=== PATIENT | female | born 1960 | race Caucasian/White ===

== ENCOUNTER → 2017-06-29 10:52 | Outpatient (CLI) | payer OTHER, SELFPAY ==
[2017-06-29 11:59] LABS: Absolute Lymphocyte Count 1.38 X10^3/ul (0.83-4.51); Absolute Neutrophil Count 5.2 X10^3/uL (2.0-7.7); Basophil# 0.03 X10^3/uL; Basophil% 0.4 % (0-1); Eosinophil# 0.14 X10^3/uL; Eosinophils% 1.9 % (0-5); Hematocrit 41.6 % (37-47); Lymphocyte # 1.38 X10^3/ul (4.0); Mean Corp Hgb Conc 31.3 g/gl (32-36); Mean Corpuscular Hgb 27.1 pg (27.0-32.0); Mean Corpuscular Volume 86.7 fL (81-99); Mean Platelet Vol. 9.9 fl (6.2-12.0); Monocyte# 0.54 X10^3/uL; Monocyte% 7.4 % (0-10); Neutrophil # 5.18 X10^3/uL (2.7-7.7); Neutrophil % 71.2 % (47-70); Platelet Count 272 K/mm3 (150-450); RBC Distribution Width CV 13.6 % (11.6-14.6); RBC Distribution Width SD 42.1 fl (35.1-43.9); White Blood Count 7.3 K/mm3 (4.4-11.0)
[2017-06-29 12:03] LABS: POSITIVE COUNT NO; POSITIVE DIFFERENTIAL NO; POSITIVE MORPHOLOGY NO
[2017-06-29 12:36] LABS: ALB/GLOB Ratio 0.9 RATIO (0.9-2.4); AST(SGOT) 19 U/L (15-37); Alanine Aminotransfer ALT/SGPT 25 U/L (13-56); Albumin, Serum 3.8 g/dL (3.2-5.0); Alkaline Phosphatase 101 U/L (45-117); Anion Gap 7 (5-15); BUN 17 mg/dL (7-18); BUN/Creat Ratio 17.8 RATIO (10-20); Chloride 107 mmol/L (98-107); Creatinine, Serum 0.96 mg/dL (0.55-1.02); EST Glomerular Filtration Rate 64 mL/min (>60); Est Glom Filt Rate - Afr Amer 78 mL/min (>60); Globulin 4.4 g/dL (2.2-4.2); Glucose 86 mg/dL (70-110); Potassium 4.2 mmol/L (3.5-5.1); Protein, Total 8.2 g/dL (6.4-8.2); Sodium Level 140 mmol/L (136-145)
== END ==
PROVIDERS: Family Provider Nurse Practitioner Primary Care; PCP Nurse Practitioner Primary Care; Visit Provider Internal Medicine Rheumatology
DX: M06.4 Inflammatory polyarthropathy (principal); E03.9 Hypothyroidism, unspecified; E21.3 Hyperparathyroidism, unspecified; Z98.84 Bariatric surgery status
CPT/HCPCS: 36415; 80053; 85025

== ENCOUNTER → 2017-12-21 10:19 | Outpatient (CLI) | payer OTHER, SELFPAY ==
[2017-12-21 12:02] LABS: Absolute Lymphocyte Count 1.49 X10^3/ul (0.83-4.51); Absolute Neutrophil Count 4.6 X10^3/uL (2.0-7.7); Basophil# 0.03 X10^3/uL; Basophil% 0.4 % (0-1); Eosinophil# 0.22 X10^3/uL; Eosinophils% 3.2 % (0-5); Hematocrit 40.6 % (37-47); Hemoglobin 12.6 g/dl (12.0-15.0); Lymphocyte # 1.49 X10^3/ul (4.0); Lymphocyte % 21.6 % (19-41); Mean Corpuscular Volume 87.1 fL (81-99); Mean Platelet Vol. 9.9 fl (6.2-12.0); Monocyte# 0.57 X10^3/uL; Monocyte% 8.3 % (0-10); Neutrophil # 4.58 X10^3/uL (2.7-7.7); Neutrophil % 66.4 % (47-70); Platelet Count 262 K/mm3 (150-450); RBC Distribution Width CV 13.2 % (11.6-14.6); RBC Distribution Width SD 41.1 fl (35.1-43.9); Red Blood Count 4.66 M/mm3 (4.2-5.4); White Blood Count 6.9 K/mm3 (4.4-11.0)
[2017-12-21 12:08] LABS: POSITIVE COUNT NO; POSITIVE DIFFERENTIAL NO; POSITIVE MORPHOLOGY NO
[2017-12-21 12:24] LABS: ALB/GLOB Ratio 0.9 RATIO (0.9-2.4); AST(SGOT) 18 U/L (15-37); Alanine Aminotransfer ALT/SGPT 24 U/L (13-56); Albumin, Serum 3.5 g/dL (3.2-5.0); Alkaline Phosphatase 102 U/L (45-117); Anion Gap 10 (5-15); BUN 12 mg/dL (7-18); Calcium,Total 8.8 mg/dL (8.5-10.1); Chloride 109 mmol/L (98-107); EST Glomerular Filtration Rate 61 mL/min (>60); Est Glom Filt Rate - Afr Amer 74 mL/min (>60); Globulin 4.1 g/dL (2.2-4.2); Glucose 84 mg/dL (74-106); Protein, Total 7.6 g/dL (6.4-8.2); Sodium Level 143 mmol/L (136-145)
== END ==
PROVIDERS: Family Provider Nurse Practitioner Primary Care; PCP Nurse Practitioner Primary Care; Visit Provider Internal Medicine Rheumatology
DX: M06.4 Inflammatory polyarthropathy (principal); M17.0 Bilateral primary osteoarthritis of knee; E03.9 Hypothyroidism, unspecified; E21.3 Hyperparathyroidism, unspecified; Z98.84 Bariatric surgery status
CPT/HCPCS: 36415; 80053; 85025

== ENCOUNTER → 2018-01-21 10:05 | Outpatient (CLI) | payer OTHER, SELFPAY ==
[2018-01-21 12:26] LABS: ALB/GLOB Ratio 0.8 RATIO (0.9-2.4); AST(SGOT) 19 U/L (15-37); Alanine Aminotransfer ALT/SGPT 22 U/L (13-56); Albumin, Serum 3.4 g/dL (3.2-5.0); Alkaline Phosphatase 101 U/L (45-117); Anion Gap 10 (5-15); BUN 15 mg/dL (7-18); BUN/Creat Ratio 15.9 RATIO (10-20); Calcium,Total 8.4 mg/dL (8.5-10.1); Chloride 108 mmol/L (98-107); Creatinine, Serum 0.94 mg/dL (0.55-1.02); EST Glomerular Filtration Rate 65 mL/min (>60); Est Glom Filt Rate - Afr Amer 79 mL/min (>60); Glucose 80 mg/dL (74-106); Protein, Total 7.4 g/dL (6.4-8.2); Sodium Level 141 mmol/L (136-145); T4 Free Direct 1.05 ng/dL (0.76-1.46); Thyroid Stim Hormone (TSH) 3.54 uIU/mL (0.358-3.74)
[2018-01-22 09:05] LABS: Free T3 2.6 pg/mL (2.18-3.98)
[2018-01-22 09:11] LABS: PTHIN 119.8 pg/mL (18.4-80.1)
[2018-01-26 10:10] LABS: Vitamin D 1,25-Dihydroxy 69.7 pg/mL (19.9-79.3)
== END ==
PROVIDERS: Family Provider Nurse Practitioner Primary Care; PCP Nurse Practitioner Primary Care; Visit Provider Internal Medicine Endocrinology, Diabetes & Metabolism
DX: N25.81 Secondary hyperparathyroidism of renal origin (principal); E55.9 Vitamin D deficiency, unspecified; E03.9 Hypothyroidism, unspecified
CPT/HCPCS: 36415; 80053; 82306; 82330; 82652; 83970; 84439; 84443; 84480; 84481

== ENCOUNTER → 2018-06-18 11:32 | Outpatient (CLI) | payer OTHER, SELFPAY ==
[2018-06-18 13:14] LABS: Absolute Lymphocyte Count 1.33 X10^3/ul (0.83-4.51); Absolute Neutrophil Count 4.3 X10^3/uL (2.0-7.7); Basophil# 0.03 X10^3/uL; Basophil% 0.5 % (0-1); Eosinophil# 0.12 X10^3/uL; Eosinophils% 1.9 % (0-5); Hematocrit 41.6 % (37-47); Hemoglobin 12.5 g/dl (12.0-15.0); Lymphocyte # 1.33 X10^3/ul (4.0); Lymphocyte % 21.1 % (19-41); Mean Corpuscular Hgb 26.4 pg (27.0-32.0); Mean Corpuscular Volume 87.9 fL (81-99); Mean Platelet Vol. 9.7 fl (6.2-12.0); Monocyte# 0.47 X10^3/uL; Monocyte% 7.5 % (0-10); Neutrophil # 4.34 X10^3/uL (2.7-7.7); POSITIVE COUNT NO; POSITIVE DIFFERENTIAL NO; POSITIVE MORPHOLOGY NO; Platelet Count 238 K/mm3 (150-450); RBC Distribution Width CV 13.5 % (11.6-14.6); RBC Distribution Width SD 43.9 fl (35.1-43.9); Red Blood Count 4.73 M/mm3 (4.2-5.4); White Blood Count 6.3 K/mm3 (4.4-11.0)
[2018-06-18 13:26] LABS: ALB/GLOB Ratio 0.9 RATIO (0.9-2.4); AST(SGOT) 21 U/L (15-37); Alanine Aminotransfer ALT/SGPT 27 U/L (13-56); Albumin, Serum 3.7 g/dL (3.2-5.0); Alkaline Phosphatase 105 U/L (45-117); Anion Gap 7 (5-15); BUN 12 mg/dL (7-18); BUN/Creat Ratio 13.1 RATIO (10-20); Calcium,Total 8.8 mg/dL (8.5-10.1); Chloride 106 mmol/L (98-107); Creatinine, Serum 0.92 mg/dL (0.55-1.02); EST Glomerular Filtration Rate 67 mL/min (>60); Est Glom Filt Rate - Afr Amer 81 mL/min (>60); Globulin 3.9 g/dL (2.2-4.2); Glucose 84 mg/dL (74-106); Potassium 4.2 mmol/L (3.5-5.1); Protein, Total 7.6 g/dL (6.4-8.2); Sodium Level 142 mmol/L (136-145)
--- OUTSIDE RECORDS SUMMARY | 2018-08-22 23:18 | XMS RPT_ITS ---
:1960 Author Organization [facility] Care Team Providers Name Role Phone GUNNARANSLEYMARY Attending Unavailable HEENA MIJARES, MS. SABI Milner Primary Care Unavailable ESTEFANY ELI MD Attending Unavailable HEENA MIJARES, MS. SABI Milner Primary Care Unavailable ESTEFANY ELI MD Attending Unavailable HEENA MIJARES, MS. SABI Milner Primary Care Unavailable Nanette Farley Attending Unavailable Nanette Farley Referring Unavailable Sabi Osei [employer] SUPERVISOR-C Primary Care Unavailable Nanette Falrey Attending Unavailable Nanette Farley Referring Unavailable Sabi Osei [employer] SUPERVISOR-C Primary Care Unavailable Nanette Farley Attending Unavailable Nanette Farley Referring Unavailable Sabi Osei [employer] SUPERVISOR-C Primary Care Unavailable Estefany Eli Attending Unavailable Estefany Eli Referring Unavailable Sabi Osei [employer] SUPERVISOR-C Primary Care Unavailable PROBLEMS PROBLEMS DATE TYPE CONDITION / CODE ATTENDING STATUS SOURCE Unknown 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 / Community M06.4(ICD-10) Hospital Repository Unknown 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 / M17.0(ICD-10) Hospital Repository Unknown E03.9 - Hypothyroidism, Nanette Farley Active [facility] unspecified / Community E03.9(ICD-10) Hospital Repository Unknown 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 [facility] Hyperparathyroidism, [facility] unspecified / Hospital E21.3(ICD-10) Repository Unknown Z98.84 - Bariatric Nanette Farley Active [facility] 9 surgery status / Community Z98.84(ICD-10) Hospital Repository Unknown N20.0 - Calculus of Nanette Farley Active [facility] 9 kidney / N20.0(ICD-10) [facility] Hospital Repository Admitting Secondary ELÍAS MENA, Active [place] [address] Diagnosis hyperparathyroidism of [facility] renal origin / Repository N25.81(ICD-10) PROCEDURES PROCEDURES No Procedure Records FoundRESULTS RESULTS CBC W/DIFF, AUTOMATED Collected: 06/18/2018 Status: F Source: [facility] 11:41 AM [facility] REPOSITORY TYPE CODE TESTS RESULT OUT OF RANGE REFERENCE UNITS LAB L100.1000 4.4-11.0 K/mm3 Normal WBC 6.3 LAB L100.1200 4.2-5.4 M/mm3 Normal RBC 4.73 LAB L100.1300 12.0-15.0 g/dl Normal HGB 12.5 LAB L100.1400 37-47 % Normal HCT 41.6 LAB L100.1500 81-99 fL Normal MCV 87.9 LAB L100.1600 27.0-32.0 pg Low MCH 26.4 LAB L100.1700 32-36 g/gl Low MCHC 30.0 LAB L100.1810 11.6-14.6 % Normal RDW CV 13.5 LAB L100.1820 35.1-43.9 fl Normal RDW SD 43.9 LAB L100.1900 150-450 K/mm3 Normal PLT 238 LAB L100.2000 6.2-12.0 fl Normal MPV 9.7 LAB L100.2100 47-70 % Normal NEUT% 69.0 LAB L100.2200 19-41 % Normal LY% 21.1 LAB L100.2300 0-10 % Normal MONO% 7.5 LAB L100.2400 0-5 % Normal EO% 1.9 LAB L100.2500 0-1 % Normal BASO% 0.5 LAB L100.2550 0.0-0.9 % Normal IM GRAN % 0.000 Result Comment: IG% - Immature Granulocytes (promyelocytes, myelocytes and metamyelocytes) > 1% indicates that a LEFT SHIFT is Present. LAB L100.2620 2.0-7.7 X10 3/uL Normal Absolute Neut 4.3 LAB L100.2720 0.83-4.51 X10 3/ul Normal Absolute Lymph 1.33 Performed By: #### L100.0100 #### [facility] [address] [place], [address] COMPREHENSIVE METABOLIC Collected: 06/18/2018 Status: F Source: [facility] 11:41 AM [facility] REPOSITORY TYPE CODE TESTS RESULT OUT OF RANGE REFERENCE UNITS LAB L501.0100 74-106 mg/dL Normal GLU 84 Result Comment: Please note revised GLUCOSE reference range effective 2017. LAB L501.1000 7-18 mg/dL Normal BUN 12 LAB L501.1100 0.55-1.02 mg/dL Normal CREAT,SERUM 0.92 Result Comment: The validity of the calculated GFR AND GFRAA in patients over 70 years has not been determined. Clinical correlation is essential. LAB L501.1110 >60 mL/min Normal EST GFR 67 Result Comment: Non- GFR Calc LAB L501.1115 >60 mL/min Normal EST GFR - AA 81 Result Comment: GFR Calc LAB L501.1300 10-20 RATIO Normal BUN/CRE 13.1 LAB L501.1500 6.4-8.2 g/dL T Normal PROT 7.6 LAB L501.1800 3.2-5.0 g/dL Normal ALB 3.7 LAB L501.1950 2.2-4.2 g/dL Normal GLOB 3.9 LAB L501.2000 0.9-2.4 RATIO Normal A/G 0.9 LAB L501.2200 8.5-10.1 mg/dL CA Normal 8.8 LAB L501.4100 15-37 U/L Normal AST 21 LAB L501.4305 45-117 U/L Normal ALK P 105 LAB L501.4405 13-56 U/L Normal ALT 27 LAB L501.4600 0.20-1.00 mg/dL T Normal BILI 0.50 LAB L501.5300 136-145 mmol/L NA Normal 142 LAB L501.5600 3.5-5.1 mmol/L K Normal 4.2 LAB L501.5900 98-107 mmol/L CL Normal 106 LAB L501.6100 21.0-32.0 mmol/L Normal CO2 29.0 LAB L501.6200 5-15 Normal GAP 7 Performed By: #### L500.4050 #### [facility] [address] [place], [place], [address] VITAMIN D 1,25-DIHYDROXY Collected: 01/22/2018 Status: F Source: [facility] 10:08 AM [facility] REPOSITORY TYPE CODE TESTS RESULT OUT OF RANGE REFERENCE UNITS LAB L3300.0960 19.9-79.3 pg/mL Normal VITD 1,25 69.7 [address] Result Comment: Performed at: - [facility] [id number] Program Checker: Eugene Domingo MD, Phone: [phone] Performed By: #### L3300.0960 #### [facility] (refer to report for specific site) refer to report for address and phone number COMPREHENSIVE METABOLIC Collected: 01/21/2018 Status: F Source: [facility] 10:08 AM [facility] REPOSITORY TYPE CODE TESTS RESULT OUT OF RANGE REFERENCE UNITS LAB L501.0100 74-106 mg/dL Normal GLU 80 Result Comment: Please note revised GLUCOSE reference range effective 2017. LAB L501.1000 7-18 mg/dL Normal BUN 15 LAB L501.1100 0.55-1.02 mg/dL Normal CREAT,SERUM 0.94 Result Comment: The validity of the calculated GFR AND GFRAA in patients over 70 years has not been determined. Clinical correlation is essential. LAB L501.1110 >60 mL/min Normal EST GFR 65 Result Comment: Non- GFR Calc LAB L501.1115 >60 mL/min Normal EST GFR - AA 79 Result Comment: GFR Calc LAB L501.1300 10-20 RATIO Normal BUN/CRE 15.9 LAB L501.1500 6.4-8.2 g/dL T Normal PROT 7.4 LAB L501.1800 3.2-5.0 g/dL Normal ALB 3.4 LAB L501.1950 2.2-4.2 g/dL Normal GLOB 4.0 LAB L501.2000 0.9-2.4 RATIO Low A/G 0.8 LAB L501.2200 8.5-10.1 mg/dL Low CA 8.4 LAB L501.4100 15-37 U/L Normal AST 19 LAB L501.4305 45-117 U/L Normal ALK P 101 LAB L501.4405 13-56 U/L Normal ALT 22 LAB L501.4600 0.20-1.00 mg/dL T Normal BILI 0.30 LAB L501.5300 136-145 mmol/L NA Normal 141 LAB L501.5600 3.5-5.1 mmol/L K Normal 4.0 LAB L501.5900 98-107 mmol/L High CL 108 LAB L501.6100 21.0-32.0 mmol/L Normal CO2 23.0 LAB L501.6200 5-15 Normal GAP 10 Performed By: #### L500.4050, L501.9520, L506.0400, L501.92311 #### [facility] [address] [place], [address] THYROID STIM HORMONE Collected: 01/21/2018 Status: F Source: [facility] (TSH) 10:08 AM [facility] REPOSITORY TYPE CODE TESTS RESULT OUT OF RANGE REFERENCE UNITS LAB L501.9520 0.358-3.74 uIU/mL Normal TSH 3.54 Performed By: #### L500.4050, L501.9520, L506.0400, L501.50719 #### [facility] [address] [place], [address] T4 FREE DIRECT Collected: 01/21/2018 Status: F Source: [facility] 10:08 AM [facility] REPOSITORY TYPE CODE TESTS RESULT OUT OF RANGE REFERENCE UNITS LAB L506.0400 0.76-1.46 ng/dL Normal T4 FREE 1.05 DIRECT Performed By: #### L500.4050, L501.9520, L506.0400, L501.91402 #### [facility] [address] [facility] [place], [address] FREE T3 Collected: 01/21/2018 Status: F Source: [facility] 10:08 AM [facility] REPOSITORY TYPE CODE TESTS RESULT OUT OF RANGE REFERENCE UNITS LAB L501.95131 2.18-3.98 pg/mL Normal FREE T3 2.6 Performed By: #### L500.4050, L501.9520, L506.0400, L501.73428 #### [facility] [address] [facility] [place], [address] PTHIN Collected: 01/21/2018 Status: F Source: [facility] 10:08 AM [facility] REPOSITORY TYPE CODE TESTS RESULT OUT OF RANGE REFERENCE UNITS LAB L509.1000 18.4-80.1 pg/mL High PTHIN 119.8 Performed By: #### L509.1000 #### [facility] [address] [facility] [place], [address] CALCIUM IONIZED Collected: 01/21/2018 Status: F Source: [facility] 10:08 AM [facility] REPOSITORY TYPE CODE TESTS RESULT OUT OF RANGE REFERENCE UNITS LAB L3100.9600 4.5-5.6 mg/dL Normal IONIZED CA 4.9 Result Comment: Performed at: [address] [id number] Program Checker: Edin Gomez PhD, Phone: [phone] Performed By: #### L3100.9600 #### [facility] (refer to report for specific site) refer to report for address and phone number CBC W/DIFF, AUTOMATED Collected: 12/21/2017 Status: F Source: [facility] 10:22 AM [facility] REPOSITORY TYPE CODE TESTS RESULT OUT OF RANGE REFERENCE UNITS LAB L100.1000 4.4-11.0 K/mm3 Normal WBC 6.9 LAB L100.1200 4.2-5.4 M/mm3 Normal RBC 4.66 LAB L100.1300 12.0-15.0 g/dl Normal HGB 12.6 LAB L100.1400 37-47 % Normal HCT 40.6 LAB L100.1500 81-99 fL Normal MCV 87.1 LAB L100.1600 27.0-32.0 pg Normal MCH 27.0 LAB L100.1700 32-36 g/gl Low MCHC 31.0 LAB L100.1810 11.6-14.6 % Normal RDW CV 13.2 LAB L100.1820 35.1-43.9 fl Normal RDW SD 41.1 LAB L100.1900 150-450 K/mm3 Normal PLT 262 LAB L100.2000 6.2-12.0 fl Normal MPV 9.9 LAB L100.2100 47-70 % Normal NEUT% 66.4 LAB L100.2200 19-41 % Normal LY% 21.6 LAB L100.2300 0-10 % Normal MONO% 8.3 LAB L100.2400 0-5 % Normal EO% 3.2 LAB L100.2500 0-1 % Normal BASO% 0.4 LAB L100.2550 0.0-0.9 % Normal IM GRAN % 0.100 Result Comment: IG% - Immature Granulocytes (promyelocytes, myelocytes and metamyelocytes) > 1% indicates that a LEFT SHIFT is Present. LAB L100.2620 2.0-7.7 X10 3/uL Normal Absolute Neut 4.6 LAB L100.2720 0.83-4.51 X10 3/ul Normal Absolute Lymph 1.49 Performed By: #### L100.0100 #### [facility] [address] [place], [place], [id number] COMPREHENSIVE METABOLIC Collected: 12/21/2017 Status: F [facility] AM [facility] REPOSITORY TYPE CODE TESTS RESULT OUT OF RANGE REFERENCE UNITS LAB L501.0100 74-106 mg/dL Normal GLU 84 Result Comment: Please note revised GLUCOSE reference range effective 2017. LAB L501.1000 7-18 mg/dL Normal BUN 12 LAB L501.1100 0.55-1.02 mg/dL Normal CREAT,SERUM 1.00 Result Comment: The validity of the calculated GFR AND GFRAA in patients over 70 years has not been determined. Clinical correlation is essential. LAB L501.1110 >60 mL/min Normal EST GFR 61 Result Comment: Non- GFR Calc LAB L501.1115 >60 mL/min Normal EST GFR - AA 74 Result Comment: GFR Calc LAB L501.1300 10-20 RATIO Normal BUN/CRE 12.0 LAB L501.1500 6.4-8.2 g/dL T Normal PROT 7.6 LAB L501.1800 3.2-5.0 g/dL Normal ALB 3.5 LAB L501.1950 2.2-4.2 g/dL Normal GLOB 4.1 LAB L501.2000 0.9-2.4 RATIO Normal A/G 0.9 LAB L501.2200 8.5-10.1 mg/dL CA Normal 8.8 LAB L501.4100 15-37 U/L Normal AST 18 LAB L501.4305 45-117 U/L Normal ALK P 102 LAB L501.4405 13-56 U/L Normal ALT 24 LAB L501.4600 0.20-1.00 mg/dL T Normal BILI 0.30 LAB L501.5300 136-145 mmol/L NA Normal 143 LAB L501.5600 3.5-5.1 mmol/L K Normal 4.0 LAB L501.5900 98-107 mmol/L High CL 109 LAB L501.6100 21.0-32.0 mmol/L Normal CO2 24.0 LAB L501.6200 5-15 Normal GAP 10 Performed By: #### L500.4050 #### [facility] [address] [place], [address] 24CRU Collected: 08/10/2017 Status: F Source: [facility] 8:23 AM [facility] REPOSITORY Order Comment: TV-1400ml TYPE CODE TESTS RESULT OUT OF REFERENCE UNITS RANGE LAB VOL24(LOIN mL/24hr C) U24 Total Volume 1400 LAB CRU(LOINC) 28.0-217.0 mg/dL Ur Creat 90.9 LAB CR24(LOINC 0.7-1.6 g/24hr ) U24 Creatinine 1.3 Performed By: #### 24CRU #### [address] [address] CAU24 Collected: 08/10/2017 Status: F Source: [facility] 8:23 AM [facility] REPOSITORY TYPE CODE TESTS RESULT OUT OF REFERENCE UNITS RANGE LAB CAUR(LOINC) mg/dL Ur Calcium <5.0 LAB CA24(LOINC) 100-300 mg/24hr U24 Calcium see comment Result Comment: Unable to calculate this test result accurately. Results used to calculate this test are outside the reportable range. Performed By: #### CAU24 #### [place] [address] #### TVOLCRE #### [address] [address] .TV CREATININE Collected: 08/10/2017 Status: F Source: [facility] 8:23 AM [facility] REPOSITORY TYPE CODE TESTS RESULT OUT OF REFERENCE UNITS RANGE LAB ALEXI(LOINC hour ) Collection 24 Period LAB VOL24(LOIN mL/24hr C) U24 Total Volume 1400 LAB CRU(LOINC) 28.0-217.0 mg/dL Ur Creat 90.9 LAB CR24(LOINC 0.7-1.6 g/24hr ) U24 Creatinine 1.3 Performed By: #### CAU24 #### [place] [address] #### TVOLCRE #### [address] [address] CAION Collected: 08/07/2017 Status: F Source: [facility] 9:17 AM [facility] REPOSITORY TYPE CODE TESTS RESULT OUT OF REFERENCE UNITS RANGE LAB CAION(LOINC 1.12-1.32 mmol/L ) Calcium 1.16 Ionized Performed By: #### CAION, TSH, FT4, FT3, PHOS, CMP, GFR, 125VTD #### [address] [address] #### PTH, VIDH #### [address] [address] TSH Collected: 08/07/2017 Status: F Source: [facility] 9:17 AM [facility] REPOSITORY TYPE CODE TESTS RESULT OUT OF RANGE REFERENCE UNITS LAB TSH(LOINC) 0.27-4.20 mcIU/mL TSH 2.34 Performed By: #### CAION, TSH, FT4, FT3, PHOS, CMP, GFR, 125VTD #### [address] [address] #### PTH, VIDH #### [place] [address] FT4 Collected: 08/07/2017 Status: F Source: [facility] 9:17 AM [facility] REPOSITORY TYPE CODE TESTS RESULT OUT OF RANGE REFERENCE UNITS LAB FT4(LOINC) 0.6-1.7 ng/mL Free T4 1.3 Performed By: #### CAION, TSH, FT4, FT3, PHOS, CMP, GFR, 125VTD #### [address] [address] #### PTH, VIDH #### [place] [address] FT3 Collected: 08/07/2017 Status: F Source: [facility] 9:17 AM [facility] REPOSITORY TYPE CODE TESTS RESULT OUT OF RANGE REFERENCE UNITS LAB FT3(LOINC) 2.3-4.0 pg/mL Free T3 3.2 Performed By: #### CAION, TSH, FT4, FT3, PHOS, CMP, GFR, 125VTD #### [address] [address] #### PTH, VIDH #### [place] [address] PHOS Collected: 08/07/2017 Status: F Source: [facility] 9:17 AM [facility] REPOSITORY TYPE CODE TESTS RESULT OUT OF REFERENCE UNITS RANGE LAB PHOS(LOINC 2.7-4.5 mg/dL ) Phosphorus 4.0 Performed By: #### CAION, TSH, FT4, FT3, PHOS, CMP, GFR, 125VTD #### [address] [address] #### PTH, VIDH #### [facility] [address] [place] [address] CMP Collected: 08/07/2017 Status: F Source: [facility] 9:17 AM [facility]POSIT[facility] TYPE CODE TESTS RESULT OUT OF REFERENCE UNITS RANGE LAB 1547-9 70-105 mg/dL GLUCOSE 87 LAB NA(LOINC) 136-146 mEq/L Sodium Level 141 LAB K(LOINC) 3.5-5.1 mEq/L Potassium Level 4.1 LAB CL(LOINC) 98-107 mEq/L Chloride 105 LAB CO2(LOINC) 22-29 mEq/L CO2 28 LAB EBAL(LOINC mEq/L ) Electrolyte Balance 8.0 LAB BUN(LOINC) 7.0-18.0 mg/dL BUN 14.1 LAB CRE(LOINC) 0.6-1.2 mg/dL Creatinine Lvl (s) 0.9 LAB BC(LOINC) 7-27 ratio BUN/Creatinine 16 Ratio LAB CA(LOINC) 8.4-10.2 mg/dL Calcium Lvl 8.7 LAB PROT(LOINC 6.0-8.3 G/dL ) Total Protein 6.6 LAB ALB(LOINC) 3.5-5.0 G/dL Albumin Level 4.1 LAB GLB(LOINC) G/dL Globulin 2.5 LAB AG(LOINC) 1.1-2.5 ratio A/G Ratio 1.6 LAB BILT(LOINC 0.2-1.0 mg/dL ) Bili Total 0.3 LAB AP(LOINC) 40-135 IU/L Alk Phos 96 LAB AST(LOINC) 10-40 IU/L AST/SGOT 16 LAB ALT(LOINC) 10-35 IU/L ALT/SGPT 14 Performed By: #### CAION, TSH, FT4, FT3, PHOS, CMP, GFR, 125VTD #### [place] [id number] [place], [place] [address] #### PTH, VIDH #### [address] [address] .GFR Collected: 08/07/2017 Status: F Source: [facility] 9:17 AM [facility] REPOSITORY TYPE CODE TESTS RESULT OUT OF REFERENCE UNITS RANGE LAB GFRAA(LOINC ml/min/1.73 ) sqm GFR 78 Greek Result Comment: GFR Population mean for , Non- Americans Ages 20-29 = 116 mL/min/1.73 sq.m. Ages 30-39 = 107 mL/min/1.73 sq.m. Ages 40-49 = 99 mL/min/1.73 sq.m. Ages 50-59 = 93 mL/min/1.73 sq.m. Ages 60-69 = 85 mL/min/1.73 sq.m. Ages 70+ = 75 mL/min/1.73 sq.m. Chronic Kidney Disease: Less than 60 mL/min/1.73 square meters End Stage Renal Disease: Less than 15 mL/min/1.73 square meters LAB GFRNO(LOINC) ml/min/1.73sqm GFR Non- >60 Result Comment: GFR Population mean for , Non- Americans Ages 20-29 = 116 mL/min/1.73 sq.m. Ages 30-39 = 107 mL/min/1.73 sq.m. Ages 40-49 = 99 mL/min/1.73 sq.m. Ages 50-59 = 93 mL/min/1.73 sq.m. Ages 60-69 = 85 mL/min/1.73 sq.m. Ages 70+ = 75 mL/min/1.73 sq.m. Chronic Kidney Disease: Less than 60 mL/min/1.73 square meters End Stage Renal Disease: Less than 15 mL/min/1.73 square meters Performed By: #### CAION, TSH, FT4, FT3, PHOS, CMP, GFR, 125VTD #### Lucy [address] [address] #### PTH, VIDH #### [address] [address] PTH Collected: 08/07/2017 Status: F Source: [facility] 9:17 AM [facility] REPOSITORY TYPE CODE TESTS RESULT OUT OF REFERENCE UNITS RANGE LAB PTH(LOINC) 18.5-88.0 pg/mL High PTH, Intact 127.7 Performed By: #### CAION, TSH, FT4, FT3, PHOS, CMP, GFR, 125VTD #### [address] [address] #### PTH, VIDH #### [address] [address] VIDH Collected: 08/07/2017 Status: F Source: [facility] 9:17 [facility] REPOSITORY TYPE CODE TESTS RESULT OUT OF RANGE REFERENCE UNITS LAB VIDH(LOINC) ng/mL Vit. D 52 25-Hydroxy Result Comment: Interpretive Values Based on Total 25(OH)D: Severe Deficiency <20 ng/mL Mild to Moderate Deficiency 20-30 ng/mL Optimum Levels 30-100 ng/mL Toxicity Possible >100 ng/mL Performed By: #### CAION, TSH, FT4, FT3, PHOS, CMP, GFR, 125VTD #### [address] [address] #### PTH, VIDH #### [address] [address] VIDDH Collected: 08/07/2017 Status: F Source: [facility] 9:17 [facility] REPOSITORY TYPE CODE TESTS RESULT OUT OF RANGE REFERENCE UNITS LAB VIDDH(LOINC 15.0-60.0 pg/mL ) Vit. D 44.7 1,25 Dihydro. Result Comment: This test was developed and its performance characteristics determined by [facility] [place] [facility] It has not been cleared or approved by the FDA. -[facility] is regulated under CLIA as qualified to perform high-complexity testing. This test is used for clinical purposes. It should not be regarded as investigational or for research. Performed By: [facility] [employer] [address] [facility] [place] [address] Program Checker: Aleta Laguna M.D. CLIA#: [id number] Phone#: LAB 125D2(LOINC) pg/mL Vitamin D2 1,25 44.7 Result Comment: Performed By: [facility] [employer] [address] [place] [address] Program Checker: Aleta Laguna M.D. CLIA#: [id number] Phone#: LAB 125D3(LOINC) pg/mL Vitamin D3 1,25 <4.0 Result Comment: Performed By: [facility] [employer] [address] [place] [address] Program Checker: Aleta Laguna M.D. CLIA#: [id number] Phone#: Performed By: #### CAION, TSH, FT4, FT3, PHOS, CMP, GFR, 125VTD #### [address] [address] #### PTH, VIDH #### [place] [address] UA Collected: 07/01/2017 Status: F Source: [facility] 8:56 AM [facility] REPOSITORY TYPE CODE TESTS RESULT OUT OF RANGE REFERENCE UNITS LAB SPCUA(KEVON NC) UA Specimen Type Clean Catch LAB CLRUA([place]) UA Color YELLOW LAB APPUA([place]) UA Appear CLEAR LAB SGUA(LOIN C) UA Spec Abnormal Grav >=1.030 LAB GLUA(LOIN mg/dL C) UA Glucose NEGATIVE LAB BILUA([place]) UA Bili NEGATIVE LAB KETUA([place] mg/dL NC) UA Ketones NEGATIVE LAB BLDUA([place] NC) UA Blood LARGE LAB PHUA(LOIN C) UA pH 5.5 LAB PROUA(KE[place] mg/dL NC) UA Protein NEGATIVE LAB UROUA(KE[place] E.U./dL NC) UA Urobilinogen 0.2 LAB NITUA([place]) UA Nitrite NEGATIVE LAB LEUUA([place]) UA Leuk Est NEGATIVE Performed By: #### UA, UAMICAO #### [address] [address] .URINALYSIS MICROSCOPIC Collected: 07/01/2017 Status: F Source: [place] ([place]) 8:56 AM [facility] REPOSITORY TYPE CODE TESTS RESULT OUT OF RANGE REFERENCE UNITS LAB WBCUA(LOIN None Seen /hpf C) UA WBC None Seen LAB RBCUA(LOIN None Seen /hpf C) UA RBC Abnormal 5-10 LAB EPIUA(LOIN None Seen /hpf C) UA Squam Abnormal Epithelial 0-5 Performed By: #### UA, UAMICAO #### [place] [address] [place], [place] [address] CT ABDOMEN/PELVIS W/O Observed: 07/01/2017 Status: F Source: [facility] [facility] 8:30 AM [facility]IT[facility] ORIGINAL COMPUTED TOMOGRAPHY OF THE ABDOMEN AND PELVIS WITHOUT IV CONTRAST (STONE PROTOCOL) Clinical Statement: BILATERAL flank pain COMPARISON: None. This exam was performed according to our departmental dose optimization program, and includes the following measures where applicable: automated exposure control, adjustment of the mAs and/or kVp accord ing to patient size and/or exam, and an iterative reconstruction algorithm. FINDINGS: The renal stone protocol was utilized. The lack of intravenous and oral contrast will limit evaluation of soft tissue abnormalities in the abdominal viscera. The kidneys are normal in size and shape. No intrarenal stones or renal mass is identified. Mild ectasia of the right ureter is seen. The ureters are normal in course. 2 mm calcified stone is present at the right ureterovesical junction on image 97 series 2. Urinary bladder is unremarkable. No pelvic mass or free fluid is seen. Uterus is surgically absent. No abnormality is seen in the visualized portions of the unenhanced liver, spleen, or adrenal glands. Atrophic changes present in the pancreatic head and uncinate process. Gallbladder is either contract ed or surgically absent. The aorta is normal in size. No obvious mesenteric or bowel abnormalities are seen. In the visualized portions of the lower lungs on the pulmonary windows, no abnormalities are seen. IMPRESSION: 2 mm stone right ureterovesical junction with mild ectasia of the right ureter. Prior hysterectomy.. Interpreted By: Warren Amezcua MD Preliminary Report By: Warren Amezcua MD Electronically Signed By: Warren Amezcua MD Dictated Date: 07/01/2017 9:08:56 AM Prelim Date: 07/01/2017 9:08:56 AM Sign Date: 07/01/2017 9:14:33 AM CBC Collected: 07/01/2017 Status: F Source: [employer] 8:09 AM [facility] REPOSITORY TYPE CODE TESTS RESULT OUT OF REFERENCE UNITS RANGE LAB WBC(LOINC) 4.60-10.80 10 3/mcL WBC 9.70 LAB RBCCT(LOINC 4.20-5.40 10 6/mcL ) RBC 5.03 LAB HGB(LOINC) 12.0-16.0 G/dL Hgb 13.3 LAB HCT(LOINC) 37.0-47.0 % Hct 41.3 LAB MCV(LOINC) 80.0-94.0 fL MCV 82.2 LAB MCH(LOINC) 27.0-31.2 pg Low MCH 26.5 LAB MCHC(LOINC) 33.0-37.0 G/dL Low MCHC 32.3 LAB RDW(LOINC) 11.5-14.5 % RDW 14.0 LAB PLT(LOINC) 130-400 10 3/mcL Platelet 256 LAB MPV(LOINC) 7.4-10.4 fL MPV 7.5 Performed By: #### CBC, ADIFF, ANEU, BMP, GFR #### [address] [address] .AUTO DIFF Collected: 07/01/2017 Status: F Source: [facility] 8:09 AM [facility] REPOSITORY TYPE CODE TESTS RESULT OUT OF REFERENCE UNITS RANGE LAB ZAID(LOINC) 37.0-80.0 % High Neutrophil % 86.1 LAB LYM(LOINC) 10.0-50.0 % Low Lymphocyte % 8.6 LAB MON(LOINC) 1.7-13.0 % Monocyte % 4.4 LAB EO(LOINC) 0.0-7.0 % Eosinophil % 0.3 LAB BAS(LOINC) 0.0-2.5 % Basophil % 0.6 LAB ABLYM(LOIN 0.77-3.85 10 3/mcL C) Lymphocyte, 0.80 Absolute LAB TERESA(LOINC 0.15-1.00 10 3/mcL ) Monocyte, 0.40 Absolute LAB AEOS(LOINC 0.00-0.40 10 3/mcL ) Eosinophil, 0.00 Absolute LAB ABAS(LOINC 0.00-0.19 10 3/mcL ) Basophil, 0.10 Absolute Performed By: #### CBC, ADIFF, ANEU, BMP, GFR #### [address] [id number] .NEUABS Collected: 07/01/2017 Status: F Source: [facility] 8:09 AM [facility] REPOSITORY TYPE CODE TESTS RESULT OUT OF REFERENCE UNITS RANGE LAB ANEU(LOINC) 2.85-6.16 10 3/mcL High Neutrophil, 8.40 Absolute Performed By: #### CBC, ADIFF, ANEU, BMP, GFR #### [facility] [place] [address], [place] [address] BMP Collected: 07/01/2017 Status: F Source: [facility] 8:09 AM [facility] REPOSITORY TYPE CODE TESTS RESULT OUT OF REFERENCE UNITS RANGE LAB 1547-9 70-105 mg/dL GLUCOSE High 121 LAB NA(LOINC) 136-146 mEq/L Sodium Level 141 LAB K(LOINC) 3.5-5.1 mEq/L Potassium Level 3.9 LAB CL(LOINC) 98-107 mEq/L Chloride 105 LAB CO2(LOINC) 22-29 mEq/L CO2 26 LAB EBAL(LOINC mEq/L ) Electrolyte Balance 10.0 LAB BUN(LOINC) 7.0-18.0 mg/dL BUN 15.9 LAB CRE(LOINC) 0.6-1.2 mg/dL Creatinine Lvl (s) 1.1 LAB BC(LOINC) 7-27 ratio BUN/Creatinine 14 Ratio LAB CA(LOINC) 8.4-10.2 mg/dL Calcium Lvl 8.9 Performed By: #### CBC, ADIFF, ANEU, BMP, GFR #### [address] [place], [place] [address] .GFR Collected: 07/01/2017 Status: F Source: [facility] 8:09 AM [facility] REPOSITORY TYPE CODE TESTS RESULT OUT OF REFERENCE UNITS RANGE LAB GFRAA(LOINC ml/min/1.73 ) sqm GFR 65 Greek Result Comment: GFR Population mean for , Non- Americans Ages 20-29 = 116 mL/min/1.73 sq.m. Ages 30-39 = 107 mL/min/1.73 sq.m. Ages 40-49 = 99 mL/min/1.73 sq.m. Ages 50-59 = 93 mL/min/1.73 sq.m. Ages 60-69 = 85 mL/min/1.73 sq.m. Ages 70+ = 75 mL/min/1.73 sq.m. Chronic Kidney Disease: Less than 60 mL/min/1.73 square meters End Stage Renal Disease: Less than 15 mL/min/1.73 square meters LAB GFRNO(LOINC) ml/min/1.73sqm GFR Non- 53 Result Comment: GFR Population mean for , Non- Americans Ages 20-29 = 116 mL/min/1.73 sq.m. Ages 30-39 = 107 mL/min/1.73 sq.m. Ages 40-49 = 99 mL/min/1.73 sq.m. Ages 50-59 = 93 mL/min/1.73 sq.m. Ages 60-69 = 85 mL/min/1.73 sq.m. Ages 70+ = 75 mL/min/1.73 sq.m. Chronic Kidney Disease: Less than 60 mL/min/1.73 square meters End Stage Renal Disease: Less than 15 mL/min/1.73 square meters Performed By: #### CBC, ADIFF, ANEU, BMP, GFR #### Lucy [address] [address] CBC W/DIFF, AUTOMATED Collected: 06/29/2017 Status: F Source: [facility] 10:57 AM [facility] REPOSITORY TYPE CODE TESTS RESULT OUT OF RANGE REFERENCE UNITS LAB L100.1000 4.4-11.0 K/mm3 Normal WBC 7.3 LAB L100.1200 4.2-5.4 M/mm3 Normal RBC 4.80 LAB L100.1300 12.0-15.0 g/dl Normal HGB 13.0 LAB L100.1400 37-47 % Normal HCT 41.6 LAB L100.1500 81-99 fL Normal MCV 86.7 LAB L100.1600 27.0-32.0 pg Normal MCH 27.1 LAB L100.1700 32-36 g/gl Low MCHC 31.3 LAB L100.1810 11.6-14.6 % Normal RDW CV 13.6 LAB L100.1820 35.1-43.9 fl Normal RDW SD 42.1 LAB L100.1900 150-450 K/mm3 Normal PLT 272 LAB L100.2000 6.2-12.0 fl Normal MPV 9.9 LAB L100.2100 47-70 % High NEUT% 71.2 LAB L100.2200 19-41 % Normal LY% 19.0 LAB L100.2300 0-10 % Normal MONO% 7.4 LAB L100.2400 0-5 % Normal EO% 1.9 LAB L100.2500 0-1 % Normal BASO% 0.4 LAB L100.2550 0.0-0.9 % Normal IM GRAN % 0.100 Result Comment: IG% - Immature Granulocytes (promyelocytes, myelocytes and metamyelocytes) > 1% indicates that a LEFT SHIFT is Present. LAB L100.2620 2.0-7.7 X10 3/uL Normal Absolute Neut 5.2 LAB L100.2720 0.83-4.51 X10 3/ul Normal Absolute Lymph 1.38 Performed By: #### L100.0100 #### [facility] [address] [place], [address] COMPREHENSIVE METABOLIC Collected: 06/29/2017 Status: F Source: [facility] 10:57 AM [facility] REPOSITORY TYPE CODE TESTS RESULT OUT OF RANGE REFERENCE UNITS LAB L501.0100 70-110 mg/dL Normal GLU 86 LAB L501.1000 7-18 mg/dL Normal BUN 17 LAB L501.1100 0.55-1.02 mg/dL Normal 0.96 CREAT,SERUM Result Comment: The validity of the calculated GFR AND GFRAA in patients over 70 years has not been determined. Clinical correlation is essential. LAB L501.1110 >60 mL/min Normal EST GFR 64 Result Comment: Non- GFR Calc LAB L501.1115 >60 mL/min Normal EST GFR - AA 78 Result Comment: GFR Calc LAB L501.1300 10-20 RATIO Normal BUN/CRE 17.8 LAB L501.1500 6.4-8.2 g/dL T Normal PROT 8.2 LAB L501.1800 3.2-5.0 g/dL Normal ALB 3.8 LAB L501.1950 2.2-4.2 g/dL High GLOB 4.4 LAB L501.2000 0.9-2.4 RATIO Normal A/G 0.9 LAB L501.2200 8.5-10.1 mg/dL CA Normal 9.0 LAB L501.4100 15-37 U/L Normal AST 19 LAB L501.4305 45-117 U/L Normal ALK P 101 LAB L501.4405 13-56 U/L Normal ALT 25 Result Comment: Please note revised ALT reference range effective 2017. LAB L501.4600 0.20-1.00 mg/dL Normal T BILI 0.30 LAB L501.5300 136-145 mmol/L Normal NA 140 LAB L501.5600 3.5-5.1 mmol/L Normal K 4.2 LAB L501.5900 98-107 mmol/L Normal CL 107 LAB L501.6100 21.0-32.0 mmol/L Normal CO2 26.0 LAB L501.6200 5-15 Normal GAP 7 Performed By: #### L500.4050 #### [facility] [address] [place], [address] ALLERGIES ALLERGIES No Allergies Records FoundENCOUNTERS ENCOUNTERS ADMIT/DISCHARGE ACCOUNT NUMBER ADMITTING ENCOUNTER LOCATION SOURCE CLASS 06/18/2018 [id number] [facility] 01/21/2018 [id number] [facility] ding:[facility] Repository 12/21/2017 [id number] [facility] 08/10/2017/08/15/19 [id number] Ambulatory [address] ding:[facility] Repository 08/07/2017/08/08/[id number] ding:[facility] Repository 07/01/2017/07/01/19 [id number] Emergency BBuilding:[address] Repository 06/29/2017 [id number] [facility] ding:[facility] Repository PAYERS PAYERS ENCOUNTER GUARANTOR PAYER SUBSCRIBER SOURCE 06/18/2018 CARLOS John Primary CARLOS MUÑ[address] Insurance:MEDICAL BROWNDOB: [facility] [id number] [address]Fdl: Number: Repository [id number] (HP) Date:[id number] [address] [address]LN: 06/18/2018 Secondary NOT GIVENUNK Grace Insurance:SELF PAY [facility] Number: Effective Repository Date:2018-06-18 01/21/2018 CARLOS E Primary CARLOS E [address] Insurance:MEDICAL BROWNDOB: [facility] [id number] Alamos Medical Center [address]Rhp: Number: Repository [id number] (HP) Date:[id number] [address] [address]KV: 01/21/2018 Secondary NOT GIVENUNK Grace Insurance:SELF PAY [facility] Number: Effective Repository Date:2018-01-21 12/21/2017 Carlos E Primary Carlos E Grace [address] Insurance:MEDICAL BrownDOB[place] [facility] [id number] Alamos Medical Center [address]Vjb: Number: Repository [id number] (HP) Date:[id number] [address] [address]YN: 12/21/2017 Secondary NOT GIVENUNK Grace Insurance:SELF PAY [facility] Number: Effective Repository Date:2017-12-21 08/10/2017 CARLOS E Primary CARLOS E [facility] BROWNDOB: Insurance:MEDICAL BROWNDOB: [facility] E [address] [id number] Repository MAIN [facility] Number: E MAIN [place], [place] [id number] [email or web address] Date:2017-08-10Tel: (911) SS.NET.COMTel: [id number] [phone] Name:[address] (HP)Tel: (197) (HP)Tel: [phone] [place], [place] [phone] (WP) [phone] (WP) [address]IK: 08/07/2017 CARLOS John Primary [facility]: [facility]: [facility] E [address] [id number] Repository MAIN [place] Number: E [address] [place] [id number] [place] [email or web address]@S Date:2017-08-0737293Tpr: (173) SS.NET.COMTel: [id number] [phone] Name:[address] (HP)Tel: (330) (HP)Tel: [phone]) [place], [place] [phone] (WP) [phone] (WP) [address]BX: 07/01/2017 [facility] E [facility] [id number] Repository [address]IN [place] Number: [address] [place] [place] [id number] [place] [email or web address]@S Date:2017-07-0146207Fyf: 330 SS.NET.COMTel: [id number] [phone] Name:[address] (HP)Tel: (330) (HP)Tel: [phone]) 6018[place], [place] [phone] (WP) [phone] (WP) [phone]: 06/29/2017 Carlos John Primary Carlos John [place] [address] [address] Insurance:[facility]ICAL [facility] [place] [id number] [facility]amos Medical Center [address]Ayj: Number: Repository [phone] [id number] [id number] (HP) Date:7694-65-60[address] [address]GL: 06/29/2017 Secondary NOT GIVENUNK Grace Insurance:SELF PAY [facility] Number: Effective Repository Date:2017-06-29
== END ==
PROVIDERS: Family Provider Nurse Practitioner Primary Care; PCP Nurse Practitioner Primary Care; Referring Provider Internal Medicine Rheumatology; Visit Provider Internal Medicine Rheumatology
DX: M06.4 Inflammatory polyarthropathy (principal); M17.0 Bilateral primary osteoarthritis of knee; E03.9 Hypothyroidism, unspecified; E21.3 Hyperparathyroidism, unspecified; N20.0 Calculus of kidney; Z98.84 Bariatric surgery status
CPT/HCPCS: 36415; 80053; 85025

== ENCOUNTER → 2018-07-27 10:04 | Outpatient (CLI) | payer OTHER, SELFPAY ==
[2018-07-27 13:03] LABS: ALB/GLOB Ratio 0.9 RATIO (0.9-2.4); AST(SGOT) 18 U/L (15-37); Alanine Aminotransfer ALT/SGPT 26 U/L (13-56); Albumin, Serum 3.6 g/dL (3.2-5.0); Alkaline Phosphatase 109 U/L (45-117); Anion Gap 10 (5-15); BUN 13 mg/dL (7-18); BUN/Creat Ratio 15.5 RATIO (10-20); Calcium,Total 8.6 mg/dL (8.5-10.1); Chloride 108 mmol/L (98-107); Creatinine, Serum 0.84 mg/dL (0.55-1.02); EST Glomerular Filtration Rate 74 mL/min (>60); Est Glom Filt Rate - Afr Amer 90 mL/min (>60); Free T3 2.3 pg/mL (2.18-3.98); Globulin 3.9 g/dL (2.2-4.2); Glucose 88 mg/dL (74-106); Phosphorus 3.5 mg/dL (2.5-4.9); Potassium 4.1 mmol/L (3.5-5.1); Protein, Total 7.5 g/dL (6.4-8.2); Sodium Level 143 mmol/L (136-145); Thyroid Stim Hormone (TSH) 1.69 uIU/mL (0.358-3.74)
== END ==
PROVIDERS: Family Provider Nurse Practitioner Primary Care; PCP Nurse Practitioner Primary Care; Referring Provider Internal Medicine Endocrinology, Diabetes & Metabolism; Visit Provider Internal Medicine Endocrinology, Diabetes & Metabolism
DX: N25.81 Secondary hyperparathyroidism of renal origin (principal)
CPT/HCPCS: 36415; 80053; 82330; 84100; 84439; 84443; 84481

== ENCOUNTER → 2018-12-17 10:52 | Outpatient (CLI) | payer OTHER, SELFPAY ==
[2018-12-17 12:21] LABS: Erythrocyte Sedimentation Rate 25 mm/hr (0-30)
[2018-12-17 12:23] LABS: Absolute Lymphocyte Count 1.37 X10^3/uL (0.83-4.51); Absolute Neutrophil Count 4.4 X10^3/uL (2.0-7.7); Basophil# 0.03 X10^3/uL; Basophil% 0.5 % (0-1); Eosinophil# 0.17 X10^3/uL; Eosinophils% 2.6 % (0-5); Hematocrit 41.3 % (37-47); Hemoglobin 12.9 g/dL (12.0-15.0); Lymphocyte # 1.37 X10^3/ul (4.0); Lymphocyte % 21.1 % (19-41); Mean Corp Hgb Conc 31.2 g/dL (32-36); Mean Corpuscular Hgb 27.5 pg (27.0-32.0); Mean Corpuscular Volume 88.1 fL (81-99); Mean Platelet Vol. 9.9 fl (6.2-12.0); Monocyte# 0.52 X10^3/uL; NRBC Flagged by Analyzer 0 % (0-5); Neutrophil % 67.6 % (47-70); Platelet Count 268 K/mm3 (150-450); RBC Distribution Width SD 44.9 fl (35.1-43.9); Red Blood Count 4.69 M/mm3 (4.2-5.4); White Blood Count 6.5 K/mm3 (4.4-11.0)
[2018-12-17 12:47] LABS: ALB/GLOB Ratio 0.9 RATIO (0.9-2.4); AST(SGOT) 18 U/L (15-37); Alanine Aminotransfer ALT/SGPT 19 U/L (13-56); Albumin, Serum 3.6 g/dL (3.2-5.0); Alkaline Phosphatase 103 U/L (45-117); Anion Gap 6 (5-15); BUN 12 mg/dL (7-18); BUN/Creat Ratio 13.8 RATIO (10-20); Calcium,Total 8.9 mg/dL (8.5-10.1); Chloride 108 mmol/L (98-107); Creatinine, Serum 0.87 mg/dL (0.55-1.02); EST Glomerular Filtration Rate 71 mL/min (>60); Est Glom Filt Rate - Afr Amer 86 mL/min (>60); Globulin 3.9 g/dL (2.2-4.2); Glucose 82 mg/dL (74-106); Potassium 4.1 mmol/L (3.5-5.1); Protein, Total 7.5 g/dL (6.4-8.2); Sodium Level 142 mmol/L (136-145)
== END ==
PROVIDERS: Family Provider Nurse Practitioner Primary Care; PCP Nurse Practitioner Primary Care; Referring Provider Internal Medicine Rheumatology; Visit Provider Internal Medicine Rheumatology
DX: M06.4 Inflammatory polyarthropathy (principal); M17.0 Bilateral primary osteoarthritis of knee
CPT/HCPCS: 36415; 80053; 85025; 85652; 86140

== ENCOUNTER → 2019-01-19 10:47 | Outpatient (CLI) | payer OTHER, SELFPAY ==
[2019-01-19 13:06] LABS: Vitamin D,25 Hydroxy 45.4 ng/mL (29.95-100.01)
[2019-01-19 13:07] LABS: ALB/GLOB Ratio 0.8 RATIO (0.9-2.4); AST(SGOT) 13 U/L (15-37); Alanine Aminotransfer ALT/SGPT 21 U/L (13-56); Albumin, Serum 3.4 g/dL (3.2-5.0); Alkaline Phosphatase 104 U/L (45-117); Anion Gap 6 (5-15); BUN 15 mg/dL (7-18); BUN/Creat Ratio 17.9 RATIO (10-20); Calcium,Total 8.7 mg/dL (8.5-10.1); Chloride 108 mmol/L (98-107); Creatinine, Serum 0.84 mg/dL (0.55-1.02); EST Glomerular Filtration Rate 74 mL/min (>60); Est Glom Filt Rate - Afr Amer 90 mL/min (>60); Free T3 2.8 pg/mL (2.18-3.98); Globulin 4.1 g/dL (2.2-4.2); Glucose 86 mg/dL (74-106); PTHIN 73.3 pg/mL (18.4-80.1); Phosphorus 3.3 mg/dL (2.5-4.9); Potassium 4.1 mmol/L (3.5-5.1); Protein, Total 7.5 g/dL (6.4-8.2); Sodium Level 142 mmol/L (136-145); T4 Free Direct 1.14 ng/dL (0.76-1.46); Thyroid Stim Hormone (TSH) 0.92 uIU/mL (0.358-3.74)
== END ==
PROVIDERS: Family Provider Nurse Practitioner Primary Care; PCP Nurse Practitioner Primary Care; Referring Provider Internal Medicine Endocrinology, Diabetes & Metabolism; Visit Provider Internal Medicine Endocrinology, Diabetes & Metabolism
DX: N25.81 Secondary hyperparathyroidism of renal origin (principal); E03.9 Hypothyroidism, unspecified; E55.9 Vitamin D deficiency, unspecified
CPT/HCPCS: 36415; 80053; 82306; 82330; 83970; 84100; 84439; 84443; 84481

== ENCOUNTER → 2019-06-17 11:38 | Outpatient (CLI) | payer OTHER, SELFPAY ==
[2019-06-17 14:14] LABS: Absolute Lymphocyte Count 1.54 X10^3/uL (0.83-4.51); Absolute Neutrophil Count 5.5 X10^3/uL (2.0-7.7); Basophil# 0.03 X10^3/uL; Basophil% 0.4 % (0-1); Eosinophil# 0.13 X10^3/uL; Eosinophils% 1.7 % (0-5); Hematocrit 43.5 % (37-47); Hemoglobin 12.9 g/dL (12.0-15.0); Lymphocyte # 1.54 X10^3/ul (4.0); Lymphocyte % 19.8 % (19-41); Mean Corp Hgb Conc 29.7 g/dL (32-36); Mean Corpuscular Hgb 26.2 pg (27.0-32.0); Mean Corpuscular Volume 88.2 fL (81-99); Monocyte# 0.51 X10^3/uL; Monocyte% 6.6 % (0-10); NRBC Flagged by Analyzer 0 % (0-5); Neutrophil # 5.54 X10^3/uL (2.7-7.7); Neutrophil % 71.2 % (47-70); Platelet Count 259 K/mm3 (150-450); RBC Distribution Width CV 13.8 % (11.6-14.6); RBC Distribution Width SD 44.2 fl (35.1-43.9); Red Blood Count 4.93 M/mm3 (4.2-5.4); White Blood Count 7.8 K/mm3 (4.4-11.0)
[2019-06-17 14:32] LABS: Vitamin D,25 Hydroxy 46.5 ng/mL (29.95-100.01)
[2019-06-17 14:37] LABS: Erythrocyte Sedimentation Rate 31 mm/hr (0-30)
[2019-06-17 14:38] LABS: ALB/GLOB Ratio 0.8 RATIO (0.9-2.4); AST(SGOT) 12 U/L (15-37); Alanine Aminotransfer ALT/SGPT 25 U/L (13-56); Albumin, Serum 3.5 g/dL (3.2-5.0); Alkaline Phosphatase 109 U/L (45-117); Anion Gap 5 (5-15); BUN 17 mg/dL (7-18); BUN/Creat Ratio 17.1 RATIO (10-20); Calcium,Total 8.8 mg/dL (8.5-10.1); Chloride 107 mmol/L (98-107); EST Glomerular Filtration Rate 61 mL/min (>60); Est Glom Filt Rate - Afr Amer 74 mL/min (>60); Free T3 2.6 pg/mL (2.18-3.98); Globulin 4.4 g/dL (2.2-4.2); Glucose 88 mg/dL (74-106); Protein, Total 7.9 g/dL (6.4-8.2); Sodium Level 139 mmol/L (136-145); T4 Total, Thyroxin 10.3 ug/dL (4.8-13.9); Thyroid Stim Hormone (TSH) 7.53 uIU/mL (0.358-3.74)
[2019-06-17 14:55] LABS: PTHIN 144.6 pg/mL (18.4-80.1)
== END ==
PROVIDERS: PCP Nurse Practitioner Primary Care; Referring Provider Internal Medicine Rheumatology; Visit Provider Internal Medicine Rheumatology
DX: M06.4 Inflammatory polyarthropathy (principal); M17.0 Bilateral primary osteoarthritis of knee; E03.9 Hypothyroidism, unspecified; E21.3 Hyperparathyroidism, unspecified; N20.0 Calculus of kidney; Z98.84 Bariatric surgery status
CPT/HCPCS: 36415; 80053; 82306; 82330; 83970; 84436; 84443; 84481; 85025; 85652; 86140

== ENCOUNTER → 2019-08-10 11:01 | Outpatient (CLI) | payer OTHER, SELFPAY ==
[2019-08-10 12:42] LABS: Erythrocyte Sedimentation Rate 37 mm/hr (0-30)
[2019-08-10 13:19] LABS: T4 Free Direct 1.57 ng/dL (0.76-1.46); Thyroid Stim Hormone (TSH) 0.62 uIU/mL (0.358-3.74)
[2019-08-12 11:06] LABS: Immunoglobulin M 76 mg/dL (26-217); Mycoplasma Pneum AB IgG 844 U/mL (0-99); Mycoplasma pneum. AB IgM < 770 U/mL (0-769)
== END ==
PROVIDERS: Internal Medicine Endocrinology, Diabetes & Metabolism; PCP Nurse Practitioner Primary Care; Referring Provider Internal Medicine Pulmonary Disease; Visit Provider Internal Medicine Pulmonary Disease
DX: J18.9 Pneumonia, unspecified organism (principal); R05 Cough; E03.9 Hypothyroidism, unspecified; M81.0 Age-related osteoporosis without current pathological fracture
CPT/HCPCS: 36415; 82784; 84439; 84443; 85652; 86140; 86738

== ENCOUNTER → 2019-08-16 10:41 | Outpatient (CLI) | payer OTHER, SELFPAY ==
--- NOTE | 2019-08-16 10:45 | RAD_ITS ---
STUDY: X-RAY CHEST REASON FOR EXAM: Female, 59 years old. Pneumonia x several weeks -- cough TECHNIQUE: PA and lateral views of the chest. COMPARISON: None. FINDINGS: Bibasilar pulmonary infiltrates worse on the left side. Radiographic follow-up is recommended. There is no demonstrated pleural abnormality. Normal size heart. Normal mediastinum and rodrigo. Normal visualized pulmonary arteries. There is atherosclerotic tortuosity of the aortic arch and descending thoracic aorta. There are diffuse degenerative changes of the visualized thoracic spine. Normal visualized ribs, clavicles, and shoulders. There is no demonstrated abnormality of the visualized soft tissue structures of the upper abdomen. RAD/Chest PA and Lateral IMPRESSION: Bibasilar pulmonary infiltrates. Follow-up is recommended. Electronically Signed: Dave Troncoso, at 15:14 EDT , Service support ,
== END ==
PROVIDERS: PCP Nurse Practitioner Primary Care; Referring Provider Internal Medicine Pulmonary Disease; Visit Provider Internal Medicine Pulmonary Disease
DX: J18.9 Pneumonia, unspecified organism (principal); R05 Cough
CPT/HCPCS: 71046

== ENCOUNTER 2019-08-17 10:53 | Day surgery (SDC) | payer OTHER, SELFPAY ==
[2019-08-17] VITALS (12 sets, daily range): BP systolic 106–136; BP diastolic 68–101; PULSE 63–106; RESP 16–20; TEMP 36.4–36.6; O2SAT 90–95; BMI 44.5
--- NOTE | 2019-08-17 | FLU_PTH ---
PATIENT: CARLOS DE LA PAZ LOC: EN U#:[id number] AGE/SX: 59/F ROOM: RE08/17/[address]: Dr. Saravanan White MD : 1960 BED: DIS: 08/17/2019 SPEC #: [id number] RECD: 08/18/19 07:39 STATUS: PORFIRIO SHAYY #: [id number] ALEXI: 08/17/19 00:[address]: Saravanan White V DEPT: CYTOLOGY RECD BY: Juvencio Pan ENTERED: 08/18/19 07:40 SP TYPE: Fluid OTHR DR: Yvonne Osei, ELECTRONIC SERVICE TECHNICIAN-C Tissues: A - Bronchus of left lower lobe B - Bronchus of right upper lobe Procedures: Special Stain Group II Special Stain Group I Surgery Specimen Level IV AFB Stain (control) Cytospin Fluid HEADER OPERATION: Bronchoscopy (MAC) PRE-OP DIAGNOSIS: Pneumonia, cough TISSUE SUBMITTED: A - LLL fluid for cytology, B - RLL fluid for cytology DIAGNOSIS CYTOLOGY A. Left lower lobe of lung, fluid for cytology (cytospin and cell block): Negative for malignant cells. Negative for acid-fast bacilli. See comment. B. Right lower lobe of lung, fluid for cytology (cytospin and cell block): Negative for malignant cells. Negative for acid-fast bacilli. See comment. AM: 08/19/19 COMMENT A & B. AFB stain with matched control was used in the evaluation of this case. CYTOLOGY STUDY Slides are reviewed. CYTOLOGY GROSS A - Received is 30 ml of cloudy dino fluid labeled with the patient's name and and designated per the requisition as LLL. Submitted for cytology preparation including cell block. B - Received is 30 ml of cloudy colorless fluid labeled with the patient's name and and designated per the requisition as RLL. Submitted for cytology preparation including cell block. / 08/18/19 TC:5 CPT: 67137 x2, 42259 x2, 31693 x2
[2019-08-17] MEDS: Lactated Ringers 1,000 ML 100 ML IV (11:16)
--- NOTE | 2019-08-17 13:55 | OP.BRONCH_ITS ---
Patient Name: Radha Bunn Procedure Date: 08/17/2019 1:19 PM Date of : 1960 Age: 59 Procedure: Bronchoscopy Indications: Interstitial lung disease Providers: Saravanan White MD Referring MD: Yvonne Osei Complications: No immediate complications Procedure: Pre-Anesthesia Assessment: - A History and Physical has been performed. Patient meds and allergies have been reviewed. The risks and benefits of the procedure and the sedation options and risks were discussed with the patient. All questions were answered and informed consent was obtained. Patient identification and proposed procedure were verified prior to the procedure by the physician and the nurse in the pre-procedure area. Mental Status Examination: alert and oriented. [Airway Exam]. [Respiratory Exam]. [CV Exam]. [ASA Grade]. After reviewing the risks and benefits, the patient was deemed in satisfactory condition to undergo the procedure. The anesthesia plan was to use [Anesthesia Plan]. Immediately prior to administration of medications, the patient was re-assessed for adequacy to receive sedatives. The heart rate, respiratory rate, oxygen saturations, blood pressure, adequacy of pulmonary ventilation, and response to care were monitored throughout the procedure. The physical status of the patient was re-assessed after the procedure. - Pre-procedure physical examination revealed no contraindications to sedation. Rales in r base After I obtained informed consent, the scope was passed under direct vision. Throughout the procedure, the patient's blood pressure, pulse, and oxygen saturations were monitored continuously. The bronchoscope was introduced through the right nostril and advanced to the tracheobronchial tree of both lungs. The procedure was accomplished without difficulty. The patient tolerated the procedure well. The total duration of the procedure was 7 hours and 7 minutes. Findings: The nasopharynx/oropharynx appears normal. The larynx appears normal. The vocal cords appear normal. The subglottic space is normal. The trachea is of normal caliber. The ray is sharp. The tracheobronchial tree was examined to at least the first subsegmental level. Bronchial mucosa and anatomy are normal; there are no endobronchial lesions, and no secretions. Bronchoalveolar lavage was performed in the RLL posterior basal segment (B10) and in the LLL posterior basal segment (B10) of the lung and sent for cell count, bacterial culture, viral smears & culture, and fungal & AFB analysis and cytology, cell count, bacterial culture, viral smears & culture, fungal & AFB analysis and cytology for immunocompromised host protocol, cell count and differential, bacterial, AFB and fungal analysis, aerobic culture, anaerobic culture and fungal analysis. 180 mL of fluid were instilled. 60 mL were returned. The return was clear. There were no mucoid plugs in the return fluid. [Multi samples]. Impression: - The airway examination was normal. - Bronchoalveolar lavage was performed. - The airway examination was normal. Recommendation: - Await [tests] results. MD Saravanan Bee MD 08/17/2019 1:54:39 PM This report has been signed electronically. Number of Addenda: 0 Note Initiated On: 08/17/2019 1:19 PM
[2019-08-17 14:23] LABS: Cytology, Body Fluid / CSF SEE PATHOLOGY REPORT
[2019-08-17 14:26] LABS: Cytology, Body Fluid / CSF SEE PATHOLOGY REPORT
[2019-08-17 16:53] LABS: Lymphocytes 11 %; Neutrophil (Segs) 24 %
[2019-08-17 16:54] LABS: Body Fluid QC Type(s) BF1,BF2; Color/Body Fluid COLORLESS; Other Cell Type/BF 65 %; Source- Body Fluid BRONCHIAL LAVAGE
[2019-08-17 16:55] LABS: Appearance/Body Fluid SL CLDY; Red Cell Count/Body Fluid 136 /mm3; White Blood Count/Body Fluid 36 /mm3
[2019-08-17 17:06] LABS: Lymphocytes 18 %; Monocytes 3 %; Neutrophil (Segs) 31 %
[2019-08-17 17:07] LABS: Appearance/Body Fluid SL CLDY; Color/Body Fluid COLORLESS; Red Cell Count/Body Fluid 91 /mm3; Source- Body Fluid BRONCHIAL LAVAGE; White Blood Count/Body Fluid 14 /mm3
[2019-08-17 17:08] LABS: Body Fluid QC Type(s) BF1Q,BF2Q; Other Cell Type/BF 48 %
[2019-08-18 09:29] LABS: Pathologist Comment/Body Fluid Reviewed
== END 2019-08-17 16:30 | disposition home or self-care (01) ==
LOC: EN 10:53 → AC 10:54
PROVIDERS: PCP Nurse Practitioner Primary Care; Referring Provider Nurse Practitioner Primary Care; Visit Provider Internal Medicine Pulmonary Disease
PROC: 0BJ08ZZ Inspection of Tracheobronchial Tree, Via Natural or Artificial Opening Endoscopic (ICD-10-PCS; CPT 31622; principal; 2019-08-17 11:45)
DX: J84.9 Interstitial pulmonary disease, unspecified (principal); E03.9 Hypothyroidism, unspecified; Z98.84 Bariatric surgery status; R05 Cough; E66.01 Morbid (severe) obesity due to excess calories; Z68.41 Body mass index [BMI] 40.0-44.9, adult
CPT/HCPCS: 31624; 87015; 87070; 87077; 87101; 87106; 87116; 87205; 87206; 88108; 88305; 88312; 88313; 89050; J7120

== ENCOUNTER → 2019-09-26 11:03 | Outpatient (CLI) | payer OTHER, SELFPAY ==
[2019-08-17 11:09] VITALS: BMI 44.5
--- NOTE | 2019-09-26 11:06 | RAD_ITS ---
STUDY: X-RAY CHEST REASON FOR EXAM: Female, 59 years old. PNEUMONIA X2 MONTHS TECHNIQUE: PA and lateral views of the chest. COMPARISON: Comparison is made with prior examination dated August 16, 2019. FINDINGS: Residual increased markings at the lung bases although there has been moderate degree of improvement as compared to prior study. Further follow-up is recommended. There is no demonstrated pleural abnormality. Normal size heart. Normal mediastinum and rodrigo. Normal visualized pulmonary arteries. There is atherosclerotic tortuosity of the aortic arch and descending thoracic aorta. There are diffuse degenerative changes of the visualized thoracic spine. Normal visualized ribs, clavicles, and shoulders. There is no demonstrated abnormality of the visualized soft tissue structures of the upper abdomen. RAD/Chest PA and Lateral IMPRESSION: Residual increased markings at the lung bases although there has been a moderate degree of improvement as compared to prior study. Further follow-up is recommended. Electronically Signed: Dave Troncoso, at 12:35 EDT , Service support ,
== END ==
PROVIDERS: PCP Nurse Practitioner Primary Care; Referring Provider Internal Medicine Pulmonary Disease; Visit Provider Internal Medicine Pulmonary Disease
DX: J18.9 Pneumonia, unspecified organism (principal)
CPT/HCPCS: 71046

== ENCOUNTER → 2019-09-29 10:03 | Outpatient (CLI) | payer OTHER, SELFPAY ==
[2019-08-17 11:09] VITALS: BMI 44.5
== END ==
PROVIDERS: PCP Nurse Practitioner Primary Care; Referring Provider Internal Medicine Pulmonary Disease; Visit Provider Internal Medicine Pulmonary Disease
DX: R05 Cough (principal); Z87.01 Personal history of pneumonia (recurrent)

== ENCOUNTER → 2019-10-25 11:55 | Outpatient (CLI) | payer OTHER, SELFPAY ==
[2019-08-17 11:09] VITALS: BMI 44.5
--- NOTE | 2019-10-25 12:04 | RAD_ITS ---
HISTORY: PNEUMONIA FOLLOW UP ADDITIONAL HISTORY: None provided. COMPARISON: 09/26/2019, 08/16/2019 TECHNIQUE: Frontal and lateral chest radiographs. Number of images including paperwork: 2 FINDINGS: LUNGS AND PLEURA: Patchy bilateral linear and faint airspace opacities, increased compared with the previous study. CARDIAC SILHOUETTE: Unremarkable. MEDIASTINUM AND HUSSEIN: Unremarkable. UPPER ABDOMEN: Unremarkable. SKELETON AND SOFT TISSUES: No acute findings. Degenerative changes. OTHER DEVICES AND HARDWARE: None. RAD/Chest PA and Lateral IMPRESSION: Patchy bilateral opacities, possibly atelectasis or early/mild infiltrates. Right basilar airspace opacity on the most recent prior examination has resolved. at 0459 Reported and signed by: Corinna Arellano MD Electronically Signed: Corinna Arellano MD at 4:59 EDT Tel , Service support ,
== END ==
PROVIDERS: PCP Nurse Practitioner Primary Care; Referring Provider Internal Medicine Pulmonary Disease; Visit Provider Internal Medicine Pulmonary Disease
DX: J18.9 Pneumonia, unspecified organism (principal)
CPT/HCPCS: 71046

== ENCOUNTER → 2019-12-09 09:53 | Outpatient (CLI) | payer OTHER, SELFPAY ==
[2019-08-17 11:09] VITALS: BMI 44.5
[2019-12-09 12:48] LABS: ALB/GLOB Ratio 0.8 RATIO (0.9-2.4); AST(SGOT) 17 U/L (15-37); Alanine Aminotransfer ALT/SGPT 29 U/L (13-56); Albumin, Serum 3.3 g/dL (3.2-5.0); Alkaline Phosphatase 88 U/L (45-117); Anion Gap 3 (5-15); BUN 16 mg/dL (7-18); BUN/Creat Ratio 16.6 RATIO (10-20); Calcium,Total 8.6 mg/dL (8.5-10.1); Chloride 107 mmol/L (98-107); Creatinine, Serum 0.96 mg/dL (0.55-1.02); EST Glomerular Filtration Rate 63 mL/min (>60); Est Glom Filt Rate - Afr Amer 76 mL/min (>60); Globulin 3.9 g/dL (2.2-4.2); Glucose 74 mg/dL (74-106); Potassium 3.9 mmol/L (3.5-5.1); Protein, Total 7.2 g/dL (6.4-8.2); Sodium Level 141 mmol/L (136-145)
[2019-12-09 13:03] LABS: Absolute Lymphocyte Count 2.23 X10^3/uL (0.83-4.51); Absolute Neutrophil Count 8.6 X10^3/uL (2.0-7.7); Basophil# 0.04 X10^3/uL; Basophil% 0.3 % (0-1); Eosinophil# 0.24 X10^3/uL; Hematocrit 42.2 % (37-47); Hemoglobin 12.4 g/dL (12.0-15.0); Lymphocyte # 2.23 X10^3/ul (4.0); Lymphocyte % 18.7 % (19-41); Mean Corp Hgb Conc 29.4 g/dL (32-36); Mean Corpuscular Hgb 26.3 pg (27.0-32.0); Mean Corpuscular Volume 89.4 fL (81-99); Mean Platelet Vol. 9.7 fl (6.2-12.0); Monocyte# 0.76 X10^3/uL; Monocyte% 6.4 % (0-10); NRBC Flagged by Analyzer 0 % (0-5); Neutrophil # 8.62 X10^3/uL (2.7-7.7); Neutrophil % 72.2 % (47-70); Platelet Count 295 K/mm3 (150-450); RBC Distribution Width CV 15.1 % (11.6-14.6); RBC Distribution Width SD 49.5 fl (35.1-43.9); Red Blood Count 4.72 M/mm3 (4.2-5.4); White Blood Count 11.9 K/mm3 (4.4-11.0)
[2019-12-09 13:20] LABS: Erythrocyte Sedimentation Rate 20 mm/hr (0-30)
== END ==
PROVIDERS: PCP Nurse Practitioner Primary Care; Referring Provider Internal Medicine Rheumatology; Visit Provider Internal Medicine Rheumatology
DX: M06.4 Inflammatory polyarthropathy (principal); M79.7 Fibromyalgia; M17.0 Bilateral primary osteoarthritis of knee; E03.9 Hypothyroidism, unspecified; E21.3 Hyperparathyroidism, unspecified; N20.0 Calculus of kidney; Z98.84 Bariatric surgery status
CPT/HCPCS: 36415; 80053; 85025; 85652; 86140

== ENCOUNTER → 2019-12-26 10:15 | Outpatient (CLI) | payer OTHER, SELFPAY ==
[2019-08-17 11:09] VITALS: BMI 44.5
--- NOTE | 2019-12-26 11:00 | RAD_ITS ---
STUDY: X-RAY CHEST REASON FOR EXAM: Female, 59 years old. PNEUMONIA SINCE JULY. FOLLOW UP CHEST XRAY TECHNIQUE: Frontal and lateral views of the chest. COMPARISON: 10-25-19 FINDINGS: Bilateral nodular infiltrates improved. There is no demonstrated pleural abnormality. Normal size heart. Normal mediastinum and rodrigo. Normal visualized pulmonary arteries. Normal visualized aortic arch and descending thoracic aorta. Normal visualized thoracic spine. Normal visualized ribs, clavicles, and shoulders. There is no demonstrated abnormality of the visualized soft tissue structures of the upper abdomen. RAD/Chest PA and Lateral IMPRESSION: Improving nodular infiltrates Electronically Signed: Malcom Bob MD at 21:57 EDT , Service support ,
[2019-12-26 12:51] LABS: Vitamin D,25 Hydroxy 66.1 ng/mL
[2019-12-26 12:53] LABS: Hemoglobin A1c 5.3 % (3.8-5.6)
[2019-12-26 13:01] LABS: PTHIN 120.6 pg/mL (18.4-80.1)
[2019-12-26 13:12] LABS: BUN 16 mg/dL (7-18); Creatinine, Serum 0.96 mg/dL (0.55-1.02); Glucose 78 mg/dL (74-106)
[2019-12-26 13:13] LABS: ALB/GLOB Ratio 0.8 RATIO (0.9-2.4); AST(SGOT) 17 U/L (15-37); Alanine Aminotransfer ALT/SGPT 27 U/L (13-56); Albumin, Serum 3.2 g/dL (3.2-5.0); Alkaline Phosphatase 86 U/L (45-117); Anion Gap 5 (5-15); BUN/Creat Ratio 16.6 RATIO (10-20); Calcium,Total 8.5 mg/dL (8.5-10.1); Chloride 106 mmol/L (98-107); EST Glomerular Filtration Rate 63 mL/min (>60); Est Glom Filt Rate - Afr Amer 76 mL/min (>60); Free T3 2.1 pg/mL (2.18-3.98); Globulin 3.8 g/dL (2.2-4.2); Potassium 3.8 mmol/L (3.5-5.1); Sodium Level 140 mmol/L (136-145); T4 Free Direct 0.92 ng/dL (0.76-1.46); Thyroid Stim Hormone (TSH) 3.01 uIU/mL (0.358-3.74)
[2019-12-26 14:47] LABS: Erythrocyte Sedimentation Rate 39 mm/hr (0-30)
== END ==
LOC: MTLAB 10:17 → RAD 10:55
PROVIDERS: Internal Medicine Endocrinology, Diabetes & Metabolism; PCP Nurse Practitioner Primary Care; Referring Provider Internal Medicine Pulmonary Disease; Visit Provider Internal Medicine Pulmonary Disease
DX: M81.0 Age-related osteoporosis without current pathological fracture (principal); N25.81 Secondary hyperparathyroidism of renal origin; E03.9 Hypothyroidism, unspecified; R05 Cough; J15.8 Pneumonia due to other specified bacteria
CPT/HCPCS: 36415; 71046; 80053; 82306; 82330; 83036; 83970; 84439; 84443; 84481; 85652

== ENCOUNTER → 2020-02-27 10:50 | Outpatient (CLI) | payer OTHER, SELFPAY ==
[2019-08-17 11:09] VITALS: BMI 44.5
[2020-02-27 12:13] LABS: Hematocrit 41.7 % (37-47); Hemoglobin 12.7 g/dL (12.0-15.0); Mean Corp Hgb Conc 30.5 g/dL (32-36); Mean Corpuscular Hgb 27.1 pg (27.0-32.0); Mean Corpuscular Volume 89.1 fL (81-99); Mean Platelet Vol. 9.7 fl (6.2-12.0); Platelet Count 271 K/mm3 (150-450); RBC Distribution Width CV 13.9 % (11.6-14.6); RBC Distribution Width SD 45.2 fl (35.1-43.9); Red Blood Count 4.68 M/mm3 (4.2-5.4); White Blood Count 9.3 K/mm3 (4.4-11.0)
== END ==
PROVIDERS: PCP Nurse Practitioner Primary Care; Referring Provider Internal Medicine Pulmonary Disease; Visit Provider Internal Medicine Pulmonary Disease
DX: R05 Cough (principal); Z87.01 Personal history of pneumonia (recurrent)
CPT/HCPCS: 36415; 85027; 86140

== ENCOUNTER → 2020-04-30 11:48 | Outpatient (CLI) | payer OTHER, SELFPAY ==
[2019-08-17 11:09] VITALS: BMI 44.5
[2020-04-30 15:22] LABS: PTHIN 113.4 pg/mL (18.4-80.1)
[2020-04-30 15:28] LABS: Vitamin D,25 Hydroxy 38.5 ng/mL
[2020-04-30 15:54] LABS: ALB/GLOB Ratio 0.9 RATIO (0.9-2.4); AST(SGOT) 15 U/L (15-37); Alanine Aminotransfer ALT/SGPT 26 U/L (13-56); Albumin, Serum 3.5 g/dL (3.2-5.0); Alkaline Phosphatase 99 U/L (45-117); Anion Gap 6 (5-15); BUN 15 mg/dL (7-18); BUN/Creat Ratio 14.6 RATIO (10-20); Chloride 105 mmol/L (98-107); Creatinine, Serum 1.03 mg/dL (0.55-1.02); EST Glomerular Filtration Rate 58 mL/min (>60); Est Glom Filt Rate - Afr Amer 71 mL/min (>60); Free T3 2.9 pg/mL (2.18-3.98); Globulin 3.8 g/dL (2.2-4.2); Glucose 74 mg/dL (74-106); Phosphorus 4.3 mg/dL (2.5-4.9); Potassium 3.8 mmol/L (3.5-5.1); Protein, Total 7.3 g/dL (6.4-8.2); Sodium Level 140 mmol/L (136-145); T4 Free Direct 0.92 ng/dL (0.76-1.46); Thyroid Stim Hormone (TSH) 5.14 uIU/mL (0.358-3.74)
[2020-05-03 16:11] LABS: Vitamin D 1,25-Dihydroxy 76.2 pg/mL (19.9-79.3)
== END ==
PROVIDERS: PCP Nurse Practitioner Primary Care; Referring Provider Internal Medicine Endocrinology, Diabetes & Metabolism; Visit Provider Internal Medicine Endocrinology, Diabetes & Metabolism
DX: E21.3 Hyperparathyroidism, unspecified (principal); E03.9 Hypothyroidism, unspecified; M81.0 Age-related osteoporosis without current pathological fracture; M13.0 Polyarthritis, unspecified; E55.9 Vitamin D deficiency, unspecified
CPT/HCPCS: 36415; 80053; 82306; 82330; 82652; 83970; 84100; 84439; 84443; 84481

== ENCOUNTER → 2020-05-07 12:47 | Outpatient (CLI) | payer OTHER, SELFPAY ==
[2019-08-17 11:09] VITALS: BMI 44.5
--- NOTE | 2020-05-07 12:49 | CT_ITS ---
STUDY: CT CHEST WITHOUT CONTRAST REASON FOR EXAM: Female, 60 years old. FOLLOW UP PNEUMONIA -- COPD RADIATION DOSAGE (If Supplied By Facility): CTDIvol = ( 20.15 ) mGy, DLP = ( 699.82 ) mGycm TECHNIQUE: Transaxial imaging was performed without the administration of intravenous contrast material. Multiplanar coronal and sagittal images were reformatted. Individualized dose optimization techniques were used for this CT. COMPARISON: None. FINDINGS: Small bilateral benign-appearing axillary lymph nodes. There is a 1.8 cm x 1.6 cm focal ground glass appearance in the anterior aspect of the right upper lobe. Mild increased markings in the medial aspect of the right middle lobe suggestive of early atelectasis and/or scarring. There is no demonstrated pleural abnormality. Normal heart and pericardium. There are multiple small lymph nodes within the mediastinum, which are normal in size and morphology most compatible with reactive lymph hyperplasia. Normal hilar regions. Normal unenhanced pulmonary arteries. Normal aorta arch and descending thoracic aorta. There are multi-level degenerative changes of the thoracic spine. There is no demonstrated abnormality of the visualized upper abdomen. CT/Chest without Contrast IMPRESSION: 1.8 cm x 1.6 cm area of groundglass appearance in the anterior aspect of the right upper lobe. No other significant abnormality is seen. Electronically Signed: Dave Troncoso, at 15:08 EST , Service support ,
== END ==
PROVIDERS: PCP Nurse Practitioner Primary Care; Referring Provider Internal Medicine Pulmonary Disease; Visit Provider Internal Medicine Pulmonary Disease
DX: R91.8 Other nonspecific abnormal finding of lung field (principal); R05 Cough
CPT/HCPCS: 71250

== ENCOUNTER → 2020-06-04 11:26 | Outpatient (CLI) | payer OTHER, SELFPAY ==
[2019-08-17 11:09] VITALS: BMI 44.5
[2020-06-04 15:37] LABS: Absolute Lymphocyte Count 1.06 X10^3/uL (0.83-4.51); Absolute Neutrophil Count 9.4 X10^3/uL (2.0-7.7); Basophil# 0.05 X10^3/uL; Basophil% 0.5 % (0-1); Eosinophil# 0.09 X10^3/uL; Eosinophils% 0.8 % (0-5); Lymphocyte # 1.06 X10^3/ul (4.0); Lymphocyte % 9.6 % (19-41); Mean Corp Hgb Conc 29.5 g/dL (32-36); Mean Corpuscular Hgb 26.4 pg (27.0-32.0); Mean Corpuscular Volume 89.2 fL (81-99); Mean Platelet Vol. 9.7 fl (6.2-12.0); Monocyte# 0.45 X10^3/uL; Monocyte% 4.1 % (0-10); NRBC Flagged by Analyzer 0 % (0-5); Neutrophil % 84.6 % (47-70); Platelet Count 291 K/mm3 (150-450); RBC Distribution Width CV 13.9 % (11.6-14.6); RBC Distribution Width SD 45.4 fl (35.1-43.9); Red Blood Count 4.93 M/mm3 (4.2-5.4); White Blood Count 11.1 K/mm3 (4.4-11.0)
[2020-06-04 15:51] LABS: Erythrocyte Sedimentation Rate 17 mm/hr (0-30)
[2020-06-04 16:03] LABS: AST(SGOT) 12 U/L (15-37); Alanine Aminotransfer ALT/SGPT 24 U/L (13-56); Albumin, Serum 3.7 g/dL (3.2-5.0); Alkaline Phosphatase 110 U/L (45-117); Anion Gap 7 (5-15); BUN 18 mg/dL (7-18); BUN/Creat Ratio 18.6 RATIO (10-20); Calcium,Total 8.3 mg/dL (8.5-10.1); Chloride 106 mmol/L (98-107); Creatinine, Serum 0.97 mg/dL (0.55-1.02); EST Glomerular Filtration Rate 62 mL/min (>60); Est Glom Filt Rate - Afr Amer 76 mL/min (>60); Globulin 3.8 g/dL (2.2-4.2); Glucose 82 mg/dL (74-106); Potassium 3.8 mmol/L (3.5-5.1); Protein, Total 7.5 g/dL (6.4-8.2); Sodium Level 140 mmol/L (136-145)
== END ==
PROVIDERS: PCP Nurse Practitioner Primary Care; Referring Provider Internal Medicine Rheumatology; Visit Provider Internal Medicine Rheumatology
DX: M06.4 Inflammatory polyarthropathy (principal); M79.7 Fibromyalgia; M35.00 Sjogren syndrome, unspecified; M17.0 Bilateral primary osteoarthritis of knee; E03.9 Hypothyroidism, unspecified; E21.3 Hyperparathyroidism, unspecified; Z98.84 Bariatric surgery status; N20.0 Calculus of kidney; L66.1 Lichen planopilaris
CPT/HCPCS: 36415; 80053; 85025; 85652; 86140

== ENCOUNTER → 2020-07-16 09:50 | Outpatient (CLI) | payer OTHER, SELFPAY ==
[2019-08-17 11:09] VITALS: BMI 44.5
--- NOTE | 2020-07-16 10:00 | RAD_ITS ---
STUDY: X-RAY CHEST REASON FOR EXAM: Female, 60 years old. CR[employer]IZING PNEUMONIA FOLLOW UP TECHNIQUE: PA and lateral views of the chest. COMPARISON: Comparison is made with prior study dated 12/26/2019. FINDINGS: The previously seen nodular infiltrates in the upper lobes have cleared. Stable calcified granulomas. No acute abnormality is seen. There is no demonstrated pleural abnormality. Normal size heart. Normal mediastinum and rodrigo. Normal visualized pulmonary arteries. There is atherosclerotic tortuosity of the aortic arch and descending thoracic aorta. There are diffuse degenerative changes of the visualized thoracic spine. Normal visualized ribs, clavicles, and shoulders. There is no demonstrated abnormality of the visualized soft tissue structures of the upper abdomen. RAD/Chest PA and Lateral IMPRESSION: No acute abnormality is seen. Electronically Signed: Dave Troncoso MD at 12:16 EST , Service support ,
== END ==
PROVIDERS: PCP Nurse Practitioner Primary Care; Visit Provider Internal Medicine Pulmonary Disease
DX: J84.116 Cryptogenic organizing pneumonia (principal)
CPT/HCPCS: 71046

== ENCOUNTER → 2020-08-13 10:40 | Outpatient (CLI) | payer OTHER, SELFPAY ==
[2019-08-17 11:09] VITALS: BMI 44.5
[2020-08-13 13:00] LABS: T4 Free Direct 1.06 ng/dL (0.76-1.46); Thyroid Stim Hormone (TSH) 2.57 uIU/mL (0.358-3.74)
== END ==
PROVIDERS: PCP Nurse Practitioner Primary Care; Referring Provider Internal Medicine Endocrinology, Diabetes & Metabolism; Visit Provider Internal Medicine Endocrinology, Diabetes & Metabolism
DX: E03.9 Hypothyroidism, unspecified (principal); E21.3 Hyperparathyroidism, unspecified; M81.0 Age-related osteoporosis without current pathological fracture; M13.0 Polyarthritis, unspecified; Z79.52 Long term (current) use of systemic steroids
CPT/HCPCS: 36415; 84439; 84443

== ENCOUNTER → 2020-09-03 11:30 | Outpatient (CLI) | payer OTHER, SELFPAY ==
[2019-08-17 11:09] VITALS: BMI 44.5
[2020-09-03 15:36] LABS: Erythrocyte Sedimentation Rate 14 mm/hr (0-30)
== END ==
PROVIDERS: PCP Nurse Practitioner Primary Care; Referring Provider Internal Medicine Pulmonary Disease; Visit Provider Internal Medicine Pulmonary Disease
DX: J84.116 Cryptogenic organizing pneumonia (principal); J18.8 Other pneumonia, unspecified organism; R05 Cough
CPT/HCPCS: 36415; 85652; 86141

== ENCOUNTER → 2020-10-25 10:33 | Outpatient (CLI) | payer OTHER, SELFPAY ==
[2019-08-17 11:09] VITALS: BMI 44.5
[2020-10-25 13:02] LABS: PTHIN 95.9 pg/mL (18.4-80.1)
[2020-10-25 13:03] LABS: ALB/GLOB Ratio 0.9 RATIO (0.9-2.4); AST(SGOT) 18 U/L (15-37); Alanine Aminotransfer ALT/SGPT 21 U/L (13-56); Albumin, Serum 3.4 g/dL (3.2-5.0); Alkaline Phosphatase 91 U/L (45-117); Anion Gap 6 (5-15); BUN 14 mg/dL (7-18); Calcium,Total 8.8 mg/dL (8.5-10.1); Chloride 109 mmol/L (98-107); Cholesterol 159 mg/dL (200); Creatinine, Serum 0.94 mg/dL (0.55-1.02); EST Glomerular Filtration Rate 65 mL/min (>60); Est Glom Filt Rate - Afr Amer 79 mL/min (>60); Free T3 2.4 pg/mL (2.18-3.98); Globulin 3.8 g/dL (2.2-4.2); Glucose 85 mg/dL (74-106); High Density Lipoprotein 54 mg/dL; Potassium 3.8 mmol/L (3.5-5.1); Protein, Total 7.2 g/dL (6.4-8.2); Sodium Level 141 mmol/L (136-145); T4 Free Direct 0.94 ng/dL (0.76-1.46); Thyroid Stim Hormone (TSH) 2.64 uIU/mL (0.358-3.74); Triglycerides 132 mg/dL; Very Low Density Lipoprotein 26 mg/dL (5-40)
[2020-10-25 13:36] LABS: Hemoglobin A1c 5.2 % (3.8-5.6)
== END ==
PROVIDERS: PCP Nurse Practitioner Primary Care; Referring Provider Internal Medicine Endocrinology, Diabetes & Metabolism; Visit Provider Internal Medicine Endocrinology, Diabetes & Metabolism
DX: E21.3 Hyperparathyroidism, unspecified (principal); M81.0 Age-related osteoporosis without current pathological fracture; M13.0 Polyarthritis, unspecified; E55.9 Vitamin D deficiency, unspecified; Z79.52 Long term (current) use of systemic steroids
CPT/HCPCS: 36415; 80053; 80061; 82330; 83036; 83970; 84439; 84443; 84481

== ENCOUNTER → 2020-11-20 13:36 | Outpatient (CLI) | payer OTHER, SELFPAY ==
[2019-08-17 11:09] VITALS: BMI 44.5
[2020-11-20 12:43] LABS: Erythrocyte Sedimentation Rate 15 mm/hr (0-30)
[2020-11-20 12:46] LABS: Absolute Lymphocyte Count 1.07 X10^3/uL (0.83-4.51); Absolute Neutrophil Count 8.1 X10^3/uL (2.0-7.7); Basophil# 0.03 X10^3/uL; Basophil% 0.3 % (0-1); Eosinophil# 0.14 X10^3/uL; Eosinophils% 1.4 % (0-5); Hematocrit 42.6 % (37-47); Hemoglobin 12.6 g/dL (12.0-15.0); Lymphocyte # 1.07 X10^3/ul (0.83-4.51); Lymphocyte % 10.8 % (19-41); Mean Corp Hgb Conc 29.6 g/dL (32-36); Mean Corpuscular Hgb 26.4 pg (27.0-32.0); Mean Corpuscular Volume 89.3 fL (81-99); Monocyte# 0.52 X10^3/uL; Monocyte% 5.2 % (0-10); NRBC Flagged by Analyzer 0 % (0-5); Neutrophil # 8.12 X10^3/uL (2.7-7.7); Neutrophil % 81.9 % (47-70); Platelet Count 285 K/mm3 (150-450); RBC Distribution Width CV 13.8 % (11.6-14.6); RBC Distribution Width SD 45.8 fl (35.1-43.9); Red Blood Count 4.77 M/mm3 (4.2-5.4); White Blood Count 9.9 K/mm3 (4.4-11.0)
[2020-11-20 13:09] LABS: ALB/GLOB Ratio 0.9 RATIO (0.9-2.4); AST(SGOT) 13 U/L (15-37); Alanine Aminotransfer ALT/SGPT 21 U/L (13-56); Albumin, Serum 3.5 g/dL (3.2-5.0); Alkaline Phosphatase 100 U/L (45-117); Anion Gap 6 (5-15); BUN 18 mg/dL (7-18); BUN/Creat Ratio 16.7 RATIO (10-20); Calcium,Total 8.8 mg/dL (8.5-10.1); Chloride 109 mmol/L (98-107); Creatinine, Serum 1.08 mg/dL (0.55-1.02); EST Glomerular Filtration Rate 55 mL/min (>60); Est Glom Filt Rate - Afr Amer 67 mL/min (>60); Globulin 3.9 g/dL (2.2-4.2); Glucose 90 mg/dL (74-106); Potassium 3.7 mmol/L (3.5-5.1); Protein, Total 7.4 g/dL (6.4-8.2); Sodium Level 141 mmol/L (136-145)
--- NOTE | 2020-11-20 13:38 | CT_ITS ---
STUDY: CT CHEST WITHOUT CONTRAST REASON FOR EXAM: Female, 60 years old. COUGH RADIATION DOSAGE (If Supplied By Facility): CTDIvol = ( 22.38 ) mGy, DLP = ( 711.54 ) mGycm TECHNIQUE: Transaxial imaging was performed without the administration of intravenous contrast material. Individualized dose optimization techniques were used for this CT. COMPARISON: 05/07/2020 FINDINGS: Few patchy peripheral groundglass opacities consistent with subsegmental atelectasis or pneumonitis. There is no demonstrated pleural abnormality. Normal heart and pericardium. Normal mediastinum. Normal hilar regions. Normal unenhanced pulmonary arteries. Normal aorta arch and descending thoracic aorta. Normal osseous structures. There is no demonstrated abnormality of the visualized upper abdomen. CT/Chest without Contrast IMPRESSION: Mild subsegmental atelectasis or pneumonitis. Electronically Signed: Isidro Thomas MD at 16:15 EDT Tel , Service support ,
== END ==
PROVIDERS: PCP Nurse Practitioner Primary Care; Referring Provider Internal Medicine Pulmonary Disease; Visit Provider Internal Medicine Pulmonary Disease
DX: J84.116 Cryptogenic organizing pneumonia (principal); R05 Cough; M06.4 Inflammatory polyarthropathy; M79.7 Fibromyalgia; M35.00 Sjogren syndrome, unspecified; M17.0 Bilateral primary osteoarthritis of knee; E03.9 Hypothyroidism, unspecified; E21.3 Hyperparathyroidism, unspecified; N20.0 Calculus of kidney; Z98.84 Bariatric surgery status; L66.1 Lichen planopilaris
CPT/HCPCS: 36415; 71250; 80053; 85025; 85652; 86140

== ENCOUNTER → 2021-03-26 10:06 | Outpatient (CLI) | payer OTHER, SELFPAY ==
[2021-03-26 12:21] LABS: Erythrocyte Sedimentation Rate 18 mm/hr (0-30)
== END ==
PROVIDERS: PCP Nurse Practitioner Primary Care; Referring Provider Internal Medicine Pulmonary Disease; Visit Provider Internal Medicine Pulmonary Disease
DX: J84.116 Cryptogenic organizing pneumonia (principal)
CPT/HCPCS: 36415; 85652; 86140

== ENCOUNTER → 2021-04-04 12:35 | Outpatient (CLI) | payer OTHER, SELFPAY ==
[2021-04-04 15:19] LABS: Absolute Lymphocyte Count 1.36 X10^3/uL (0.83-4.51); Absolute Neutrophil Count 6.4 X10^3/uL (2.0-7.7); Basophil# 0.06 X10^3/uL; Basophil% 0.7 % (0-1); Eosinophil# 0.25 X10^3/uL; Eosinophils% 2.9 % (0-5); Hematocrit 42.2 % (37-47); Hemoglobin 12.7 g/dL (12.0-15.0); Lymphocyte # 1.36 X10^3/ul (0.83-4.51); Lymphocyte % 15.6 % (19-41); Mean Corp Hgb Conc 30.1 g/dL (32-36); Mean Corpuscular Hgb 26.7 pg (27.0-32.0); Mean Corpuscular Volume 88.8 fL (81-99); Monocyte# 0.64 X10^3/uL; Monocyte% 7.3 % (0-10); NRBC Flagged by Analyzer 0 % (0-5); Neutrophil # 6.39 X10^3/uL (2.7-7.7); Neutrophil % 73.2 % (47-70); Platelet Count 263 K/mm3 (150-450); RBC Distribution Width CV 13.5 % (11.6-14.6); RBC Distribution Width SD 44.2 fl (35.1-43.9); Red Blood Count 4.75 M/mm3 (4.2-5.4); White Blood Count 8.7 K/mm3 (4.4-11.0)
[2021-04-04 15:44] LABS: Erythrocyte Sedimentation Rate 14 mm/hr (0-30)
[2021-04-04 16:18] LABS: AST(SGOT) 17 U/L (15-37); Alanine Aminotransfer ALT/SGPT 26 U/L (13-56); Albumin, Serum 3.4 g/dL (3.2-5.0); Alkaline Phosphatase 89 U/L (45-117); Bilirubin, Direct 0.16 mg/dL (0.00-0.30); Globulin 3.9 g/dL (2.2-4.2); Protein, Total 7.3 g/dL (6.4-8.2)
== END ==
PROVIDERS: PCP Nurse Practitioner Primary Care; Referring Provider Internal Medicine Pulmonary Disease; Visit Provider Internal Medicine Pulmonary Disease
DX: J84.116 Cryptogenic organizing pneumonia (principal); R05.9 Cough, unspecified
CPT/HCPCS: 36415; 80076; 85025; 85652; 86141

== ENCOUNTER → 2021-04-30 10:46 | Outpatient (CLI) | payer OTHER, SELFPAY ==
[2021-04-30 15:07] LABS: Erythrocyte Sedimentation Rate 35 mm/hr (0-30)
[2021-04-30 15:29] LABS: PTHIN 55.1 pg/mL (18.4-80.1)
[2021-04-30 15:31] LABS: Vitamin D,25 Hydroxy 45.8 ng/mL
[2021-04-30 15:32] LABS: Hemoglobin A1c 5.2 % (3.8-5.6)
[2021-04-30 15:38] LABS: ALB/GLOB Ratio 0.9 RATIO (0.9-2.4); AST(SGOT) 17 U/L (15-37); Alanine Aminotransfer ALT/SGPT 22 U/L (13-56); Albumin, Serum 3.7 g/dL (3.2-5.0); Alkaline Phosphatase 91 U/L (45-117); Anion Gap 8 (5-15); BUN 18 mg/dL (7-18); BUN/Creat Ratio 16.4 RATIO (10-20); Calcium,Total 9.3 mg/dL (8.5-10.1); Chloride 105 mmol/L (98-107); EST Glomerular Filtration Rate 54 mL/min (>60); Est Glom Filt Rate - Afr Amer 65 mL/min (>60); Globulin 4.2 g/dL (2.2-4.2); Glucose 130 mg/dL (74-106); Potassium 3.8 mmol/L (3.5-5.1); Protein, Total 7.9 g/dL (6.4-8.2); Sodium Level 139 mmol/L (136-145); T4 Free Direct 0.96 ng/dL (0.76-1.46); Thyroid Stim Hormone (TSH) 1.53 uIU/mL (0.358-3.74)
== END ==
PROVIDERS: PCP Nurse Practitioner Primary Care; Referring Provider Internal Medicine Pulmonary Disease; Visit Provider Internal Medicine Pulmonary Disease
DX: J84.116 Cryptogenic organizing pneumonia (principal); R05.9 Cough, unspecified; E03.9 Hypothyroidism, unspecified; E21.3 Hyperparathyroidism, unspecified; Z79.52 Long term (current) use of systemic steroids; L66.1 Lichen planopilaris
CPT/HCPCS: 36415; 80053; 82306; 82330; 83036; 83970; 84439; 84443; 85652; 86140

== ENCOUNTER → 2021-05-03 11:22 | Outpatient (CLI) | payer OTHER, SELFPAY ==
[2021-05-03 15:05] LABS: Absolute Lymphocyte Count 1.03 X10^3/uL (0.83-4.51); Absolute Neutrophil Count 9.6 X10^3/uL (2.0-7.7); Basophil# 0.05 X10^3/uL; Basophil% 0.4 % (0-1); Eosinophil# 0.09 X10^3/uL; Eosinophils% 0.8 % (0-5); Hematocrit 43.3 % (37-47); Hemoglobin 13.1 g/dL (12.0-15.0); Lymphocyte # 1.03 X10^3/ul (0.83-4.51); Mean Corp Hgb Conc 30.3 g/dL (32-36); Mean Corpuscular Volume 89.3 fL (81-99); Mean Platelet Vol. 10.3 fl (6.2-12.0); Monocyte# 0.59 X10^3/uL; Monocyte% 5.2 % (0-10); NRBC Flagged by Analyzer 0 % (0-5); Neutrophil # 9.58 X10^3/uL (2.7-7.7); Neutrophil % 84.2 % (47-70); Platelet Count 289 K/mm3 (150-450); RBC Distribution Width CV 13.9 % (11.6-14.6); RBC Distribution Width SD 44.9 fl (35.1-43.9); Red Blood Count 4.85 M/mm3 (4.2-5.4); White Blood Count 11.4 K/mm3 (4.4-11.0)
== END ==
PROVIDERS: PCP Nurse Practitioner Primary Care; Referring Provider Internal Medicine Pulmonary Disease; Visit Provider Internal Medicine Pulmonary Disease
DX: J84.116 Cryptogenic organizing pneumonia (principal); R05.9 Cough, unspecified
CPT/HCPCS: 36415; 85025

== ENCOUNTER → 2021-05-30 11:00 | Outpatient (CLI) | payer OTHER, SELFPAY ==
[2019-08-17 11:09] VITALS: BMI 44.5
[2021-05-30 12:26] LABS: Erythrocyte Sedimentation Rate 20 mm/hr (0-30)
[2021-05-30 12:29] LABS: Absolute Lymphocyte Count 0.99 X10^3/uL (0.83-4.51); Absolute Neutrophil Count 7.9 X10^3/uL (2.0-7.7); Basophil# 0.04 X10^3/uL; Basophil% 0.4 % (0-1); Hematocrit 42.5 % (37-47); Hemoglobin 12.7 g/dL (12.0-15.0); Lymphocyte # 0.99 X10^3/ul (0.83-4.51); Lymphocyte % 10.1 % (19-41); Mean Corp Hgb Conc 29.9 g/dL (32-36); Mean Corpuscular Hgb 26.3 pg (27.0-32.0); Mean Corpuscular Volume 88.2 fL (81-99); Mean Platelet Vol. 9.6 fl (6.2-12.0); Monocyte# 0.61 X10^3/uL; Monocyte% 6.2 % (0-10); NRBC Flagged by Analyzer 0 % (0-5); Neutrophil # 7.93 X10^3/uL (2.7-7.7); Platelet Count 284 K/mm3 (150-450); RBC Distribution Width CV 13.8 % (11.6-14.6); RBC Distribution Width SD 44.2 fl (35.1-43.9); Red Blood Count 4.82 M/mm3 (4.2-5.4); White Blood Count 9.8 K/mm3 (4.4-11.0)
[2021-05-30 12:59] LABS: ALB/GLOB Ratio 0.9 RATIO (0.9-2.4); AST(SGOT) 14 U/L (15-37); Alanine Aminotransfer ALT/SGPT 21 U/L (13-56); Albumin, Serum 3.3 g/dL (3.2-5.0); Alkaline Phosphatase 109 U/L (45-117); Anion Gap 4 (5-15); BUN 18 mg/dL (7-18); BUN/Creat Ratio 18.4 RATIO (10-20); Calcium,Total 9.2 mg/dL (8.5-10.1); Chloride 107 mmol/L (98-107); Creatinine, Serum 0.98 mg/dL (0.55-1.02); EST Glomerular Filtration Rate 62 mL/min (>60); Est Glom Filt Rate - Afr Amer 74 mL/min (>60); Globulin 3.8 g/dL (2.2-4.2); Glucose 95 mg/dL (74-106); Protein, Total 7.1 g/dL (6.4-8.2); Sodium Level 140 mmol/L (136-145)
== END ==
PROVIDERS: PCP Nurse Practitioner Primary Care; Referring Provider Internal Medicine Rheumatology; Visit Provider Internal Medicine Rheumatology
DX: J84.116 Cryptogenic organizing pneumonia (principal); R05.9 Cough, unspecified; M06.4 Inflammatory polyarthropathy; M79.7 Fibromyalgia; M35.00 Sjogren syndrome, unspecified; M17.0 Bilateral primary osteoarthritis of knee; E03.9 Hypothyroidism, unspecified; E21.3 Hyperparathyroidism, unspecified; Z98.84 Bariatric surgery status; N20.0 Calculus of kidney; L66.1 Lichen planopilaris
CPT/HCPCS: 36415; 80053; 82248; 85025; 85652; 86140; 86141

== ENCOUNTER 2021-07-02 11:07 | Outpatient (CLI) | payer OTHER, SELFPAY ==
[2021-07-02 15:28] LABS: Absolute Lymphocyte Count 0.93 X10^3/uL (0.83-4.51); Absolute Neutrophil Count 6.7 X10^3/uL (2.0-7.7); Basophil# 0.04 X10^3/uL; Basophil% 0.5 % (0-1); Eosinophil# 0.12 X10^3/uL; Eosinophils% 1.4 % (0-5); Hemoglobin 12.3 g/dL (12.0-15.0); Lymphocyte # 0.93 X10^3/ul (0.83-4.51); Lymphocyte % 11.2 % (19-41); Mean Corpuscular Hgb 26.6 pg (27.0-32.0); Mean Corpuscular Volume 88.7 fL (81-99); Mean Platelet Vol. 10.5 fl (6.2-12.0); Monocyte# 0.52 X10^3/uL; Monocyte% 6.3 % (0-10); NRBC Flagged by Analyzer 0 % (0-5); Neutrophil # 6.66 X10^3/uL (2.7-7.7); Neutrophil % 80.2 % (47-70); Platelet Count 287 K/mm3 (150-450); RBC Distribution Width CV 14.2 % (11.6-14.6); RBC Distribution Width SD 45.7 fl (35.1-43.9); Red Blood Count 4.62 M/mm3 (4.2-5.4); White Blood Count 8.3 K/mm3 (4.4-11.0)
[2021-07-02 15:58] LABS: AST(SGOT) 14 U/L (15-37); Alanine Aminotransfer ALT/SGPT 22 U/L (13-56); Albumin, Serum 3.6 g/dL (3.2-5.0); Alkaline Phosphatase 98 U/L (45-117); Bilirubin, Direct 0.13 mg/dL (0.00-0.30); Globulin 3.6 g/dL (2.2-4.2); Protein, Total 7.2 g/dL (6.4-8.2)
[2021-07-02 16:05] LABS: Erythrocyte Sedimentation Rate 20 mm/hr (0-30)
== END 2021-07-02 23:59 | disposition short-term general hospital (02) ==
LOC: MTLAB 11:08
PROVIDERS: PCP Nurse Practitioner Primary Care; Referring Provider Internal Medicine Pulmonary Disease; Visit Provider Internal Medicine Pulmonary Disease
DX: J84.116 Cryptogenic organizing pneumonia (principal)
CPT/HCPCS: 36415; 80076; 85025; 85652; 86141

== ENCOUNTER → 2021-09-17 | Outpatient (CLI) | payer OTHER, SELFPAY ==
[2021-09-17 12:24] LABS: Erythrocyte Sedimentation Rate 14 mm/hr (0-30)
[2021-09-17 12:28] LABS: AST(SGOT) 14 U/L (15-37); Absolute Lymphocyte Count 1.25 X10^3/uL (0.83-4.51); Absolute Neutrophil Count 5.3 X10^3/uL (2.0-7.7); Alanine Aminotransfer ALT/SGPT 21 U/L (13-56); Albumin, Serum 3.6 g/dL (3.2-5.0); Alkaline Phosphatase 104 U/L (45-117); Basophil# 0.06 X10^3/uL; Basophil% 0.8 % (0-1); Bilirubin, Direct 0.12 mg/dL (0.00-0.30); Eosinophil# 0.26 X10^3/uL; Eosinophils% 3.4 % (0-5); Globulin 3.8 g/dL (2.2-4.2); Hematocrit 40.6 % (37-47); Hemoglobin 12.3 g/dL (12.0-15.0); Lymphocyte # 1.25 X10^3/ul (0.83-4.51); Lymphocyte % 16.5 % (19-41); Mean Corp Hgb Conc 30.3 g/dL (32-36); Mean Corpuscular Hgb 26.5 pg (27.0-32.0); Mean Corpuscular Volume 87.3 fL (81-99); Mean Platelet Vol. 10.4 fl (6.2-12.0); Monocyte# 0.65 X10^3/uL; Monocyte% 8.6 % (0-10); NRBC Flagged by Analyzer 0 % (0-5); Neutrophil # 5.32 X10^3/uL (2.7-7.7); Neutrophil % 70.3 % (47-70); Platelet Count 264 K/mm3 (150-450); Protein, Total 7.4 g/dL (6.4-8.2); RBC Distribution Width CV 13.5 % (11.6-14.6); RBC Distribution Width SD 43.4 fl (35.1-43.9); Red Blood Count 4.65 M/mm3 (4.2-5.4); White Blood Count 7.6 K/mm3 (4.4-11.0)
== END | disposition home or self-care (01) ==
LOC: MTLAB 09:42
PROVIDERS: PCP Nurse Practitioner Primary Care; Referring Provider Internal Medicine Pulmonary Disease; Visit Provider Internal Medicine Pulmonary Disease
DX: J84.116 Cryptogenic organizing pneumonia (principal)
CPT/HCPCS: 36415; 80076; 85025; 85652; 86140

== ENCOUNTER → 2021-10-03 | Outpatient (CLI) | payer OTHER, SELFPAY ==
[2021-10-03 08:35] VITALS: BP 150/90; PULSE 86; RESP 16; TEMP 36.2; O2SAT 99
[2021-10-03] MEDS: Cosyntropin 0.25 MG Vial IM (08:54)
== END | disposition home or self-care (01) ==
LOC: MEDOUTP 08:24
PROVIDERS: PCP Nurse Practitioner Primary Care; Referring Provider Nurse Practitioner Family; Visit Provider Nurse Practitioner Family
DX: Z79.899 Other long term (current) drug therapy (principal)
CPT/HCPCS: 36415; 82533; 96372; J0834

== ENCOUNTER → 2021-10-24 | Outpatient (CLI) | payer OTHER, SELFPAY ==
[2021-10-24 12:29] LABS: Vitamin D,25 Hydroxy 39.5 ng/mL
[2021-10-24 12:31] LABS: ALB/GLOB Ratio 0.9 RATIO (0.9-2.4); AST(SGOT) 18 U/L (15-37); Alanine Aminotransfer ALT/SGPT 20 U/L (13-56); Albumin, Serum 3.4 g/dL (3.2-5.0); Alkaline Phosphatase 95 U/L (45-117); Anion Gap 3 (5-15); BUN 12 mg/dL (7-18); BUN/Creat Ratio 14.9 RATIO (10-20); Calcium,Total 8.1 mg/dL (8.5-10.1); Chloride 110 mmol/L (98-107); Cholesterol 144 mg/dL (200); EST Glomerular Filtration Rate 77 mL/min (>60); Est Glom Filt Rate - Afr Amer 93 mL/min (>60); Free T3 2.3 pg/mL (2.18-3.98); Globulin 3.6 g/dL (2.2-4.2); Glucose 88 mg/dL (74-106); High Density Lipoprotein 47 mg/dL; Potassium 4.3 mmol/L (3.5-5.1); Sodium Level 141 mmol/L (136-145); T4 Free Direct 0.89 ng/dL (0.76-1.46); Thyroid Stim Hormone (TSH) 4.04 uIU/mL (0.358-3.74); Triglycerides 114 mg/dL; Very Low Density Lipoprotein 23 mg/dL (5-40)
== END | disposition home or self-care (01) ==
LOC: MTLAB 10:28
PROVIDERS: PCP Nurse Practitioner Primary Care; Referring Provider Internal Medicine Endocrinology, Diabetes & Metabolism; Visit Provider Internal Medicine Endocrinology, Diabetes & Metabolism
DX: E03.9 Hypothyroidism, unspecified (principal); E21.3 Hyperparathyroidism, unspecified; M81.0 Age-related osteoporosis without current pathological fracture; I10 Essential (primary) hypertension; L66.1 Lichen planopilaris
CPT/HCPCS: 36415; 80053; 80061; 82306; 84439; 84443; 84481

== ENCOUNTER → 2021-11-27 | Outpatient (CLI) | payer OTHER, SELFPAY ==
[2021-11-27 12:34] LABS: Erythrocyte Sedimentation Rate 43 mm/hr (0-30)
[2021-11-27 12:39] LABS: PTHIN 602.5 pg/mL (18.4-80.1)
[2021-11-27 12:47] LABS: Absolute Lymphocyte Count 1.08 X10^3/uL (0.83-4.51); Absolute Neutrophil Count 5.4 X10^3/uL (2.0-7.7); Basophil# 0.03 X10^3/uL; Basophil% 0.4 % (0-1); Eosinophil# 0.14 X10^3/uL; Eosinophils% 1.9 % (0-5); Hematocrit 42.3 % (37-47); Hemoglobin 12.5 g/dL (12.0-15.0); Lymphocyte # 1.08 X10^3/ul (0.83-4.51); Lymphocyte % 14.9 % (19-41); Mean Corp Hgb Conc 29.6 g/dL (32-36); Mean Corpuscular Hgb 25.5 pg (27.0-32.0); Mean Corpuscular Volume 86.2 fL (81-99); Mean Platelet Vol. 10.5 fl (6.2-12.0); Monocyte# 0.56 X10^3/uL; Monocyte% 7.7 % (0-10); NRBC Flagged by Analyzer 0 % (0-5); Neutrophil # 5.39 X10^3/uL (2.7-7.7); Neutrophil % 74.7 % (47-70); Platelet Count 268 K/mm3 (150-450); RBC Distribution Width CV 13.7 % (11.6-14.6); RBC Distribution Width SD 42.9 fl (35.1-43.9); Red Blood Count 4.91 M/mm3 (4.2-5.4); White Blood Count 7.2 K/mm3 (4.4-11.0)
[2021-11-27 12:58] LABS: ALB/GLOB Ratio 1.1 RATIO (0.9-2.4); AST(SGOT) 14 U/L (15-37); Alanine Aminotransfer ALT/SGPT 17 U/L (13-56); Albumin, Serum 3.8 g/dL (3.2-5.0); Alkaline Phosphatase 92 U/L (45-117); Anion Gap 7 (5-15); BUN 12 mg/dL (7-18); BUN/Creat Ratio 15.1 RATIO (10-20); Calcium,Total 8.1 mg/dL (8.5-10.1); Chloride 108 mmol/L (98-107); EST Glomerular Filtration Rate 78 mL/min (>60); Est Glom Filt Rate - Afr Amer 94 mL/min (>60); Globulin 3.5 g/dL (2.2-4.2); Glucose 90 mg/dL (74-106); Magnesium 2.5 mg/dL (1.6-2.6); Phosphorus 2.6 mg/dL (2.5-4.9); Potassium 3.9 mmol/L (3.5-5.1); Protein, Total 7.3 g/dL (6.4-8.2); Sodium Level 140 mmol/L (136-145); Thyroid Stim Hormone (TSH) 0.59 uIU/mL (0.358-3.74)
== END | disposition home or self-care (01) ==
LOC: MTLAB 10:44
PROVIDERS: PCP Nurse Practitioner Primary Care; Referring Provider Internal Medicine Rheumatology; Visit Provider Internal Medicine Rheumatology
DX: M06.4 Inflammatory polyarthropathy (principal); M35.00 Sjogren syndrome, unspecified; E21.3 Hyperparathyroidism, unspecified; M79.7 Fibromyalgia; M17.0 Bilateral primary osteoarthritis of knee; E03.9 Hypothyroidism, unspecified; N20.0 Calculus of kidney; L66.1 Lichen planopilaris; M81.0 Age-related osteoporosis without current pathological fracture; I10 Essential (primary) hypertension; Z98.84 Bariatric surgery status; Z79.899 Other long term (current) drug therapy; Z79.52 Long term (current) use of systemic steroids
CPT/HCPCS: 36415; 80053; 82330; 83735; 83970; 84100; 84443; 85025; 85652; 86140

== ENCOUNTER → 2021-12-17 | Outpatient (CLI) | payer OTHER, SELFPAY ==
[2021-12-17 12:15] LABS: Erythrocyte Sedimentation Rate 24 mm/hr (0-30)
[2021-12-17 12:18] LABS: Hematocrit 41.2 % (37-47); Mean Corp Hgb Conc 29.1 g/dL (32-36); Mean Corpuscular Hgb 25.2 pg (27.0-32.0); Mean Corpuscular Volume 86.6 fL (81-99); Mean Platelet Vol. 10.2 fl (6.2-12.0); Platelet Count 256 K/mm3 (150-450); RBC Distribution Width CV 13.8 % (11.6-14.6); RBC Distribution Width SD 43.8 fl (35.1-43.9); Red Blood Count 4.76 M/mm3 (4.2-5.4); White Blood Count 6.7 K/mm3 (4.4-11.0)
[2021-12-17 12:28] LABS: AST(SGOT) 14 U/L (15-37); Alanine Aminotransfer ALT/SGPT 18 U/L (13-56); Albumin, Serum 3.4 g/dL (3.2-5.0); Alkaline Phosphatase 77 U/L (45-117); Bilirubin, Direct 0.12 mg/dL (0.00-0.30); Globulin 3.7 g/dL (2.2-4.2); Protein, Total 7.1 g/dL (6.4-8.2)
== END | disposition home or self-care (01) ==
LOC: MTLAB 10:26
PROVIDERS: PCP Nurse Practitioner Primary Care; Referring Provider Internal Medicine Pulmonary Disease; Visit Provider Internal Medicine Pulmonary Disease
DX: J84.116 Cryptogenic organizing pneumonia (principal)
CPT/HCPCS: 36415; 80076; 85027; 85652; 86140

== ENCOUNTER → 2022-02-25 | Outpatient (CLI) | payer OTHER, SELFPAY ==
[2022-02-25 12:18] LABS: Erythrocyte Sedimentation Rate 21 mm/hr (0-30)
[2022-02-25 12:20] LABS: Absolute Lymphocyte Count 1.01 X10^3/uL (0.83-4.51); Absolute Neutrophil Count 4.1 X10^3/uL (2.0-7.7); Basophil# 0.03 X10^3/uL; Basophil% 0.5 % (0-1); Eosinophils% 3.4 % (0-5); Hematocrit 39.2 % (37-47); Hemoglobin 11.8 g/dL (12.0-15.0); Lymphocyte # 1.01 X10^3/ul (0.83-4.51); Lymphocyte % 17.3 % (19-41); Mean Corp Hgb Conc 30.1 g/dL (32-36); Mean Corpuscular Hgb 26.1 pg (27.0-32.0); Mean Corpuscular Volume 86.7 fL (81-99); Mean Platelet Vol. 10.1 fl (6.2-12.0); Monocyte# 0.54 X10^3/uL; Monocyte% 9.2 % (0-10); NRBC Flagged by Analyzer 0 % (0-5); Neutrophil # 4.05 X10^3/uL (2.7-7.7); Neutrophil % 69.3 % (47-70); Platelet Count 235 K/mm3 (150-450); RBC Distribution Width SD 44.6 fl (35.1-43.9); Red Blood Count 4.52 M/mm3 (4.2-5.4); White Blood Count 5.9 K/mm3 (4.4-11.0)
[2022-02-25 12:57] LABS: AST(SGOT) 15 U/L (15-37); Alanine Aminotransfer ALT/SGPT 18 U/L (13-56); Albumin, Serum 3.4 g/dL (3.2-5.0); Alkaline Phosphatase 86 U/L (45-117); Anion Gap 7 (5-15); BUN 13 mg/dL (7-18); BUN/Creat Ratio 16.4 RATIO (10-20); Calcium,Total 9.1 mg/dL (8.5-10.1); Chloride 109 mmol/L (98-107); Creatinine, Serum 0.79 mg/dL (0.55-1.02); EST Glomerular Filtration Rate 79 mL/min (>60); Est Glom Filt Rate - Afr Amer 95 mL/min (>60); Globulin 3.5 g/dL (2.2-4.2); Glucose 85 mg/dL (74-106); Potassium 4.1 mmol/L (3.5-5.1); Protein, Total 6.9 g/dL (6.4-8.2); Sodium Level 142 mmol/L (136-145)
[2022-02-27 17:07] LABS: Red Blood Cell Count Test/G6PD 4.53 x10E6/uL (3.77-5.28)
[2022-02-28 08:58] LABS: G6PD Quant Test 260 (127-427)
== END | disposition home or self-care (01) ==
LOC: MTLAB 10:53
PROVIDERS: PCP Nurse Practitioner Primary Care; Referring Provider Internal Medicine Rheumatology; Visit Provider Internal Medicine Rheumatology
DX: M06.4 Inflammatory polyarthropathy (principal); M35.00 Sjogren syndrome, unspecified; J84.116 Cryptogenic organizing pneumonia; E21.3 Hyperparathyroidism, unspecified; Z79.899 Other long term (current) drug therapy; M79.7 Fibromyalgia; M17.0 Bilateral primary osteoarthritis of knee; E03.9 Hypothyroidism, unspecified; Z98.84 Bariatric surgery status; N20.0 Calculus of kidney; L66.1 Lichen planopilaris; M81.0 Age-related osteoporosis without current pathological fracture
CPT/HCPCS: 36415; 80053; 82955; 85025; 85652; 86140

== ENCOUNTER 2022-04-11 11:48 | Outpatient (RCR) | payer OTHER, SELFPAY ==
[2022-04-11 15:04] LABS: Absolute Lymphocyte Count 1.19 X10^3/uL (0.83-4.51); Absolute Neutrophil Count 3.9 X10^3/uL (2.0-7.7); Basophil# 0.03 X10^3/uL; Basophil% 0.5 % (0-1); Eosinophil# 0.23 X10^3/uL; Eosinophils% 3.9 % (0-5); Hematocrit 40.7 % (37-47); Hemoglobin 12.2 g/dL (12.0-15.0); Lymphocyte # 1.19 X10^3/ul (0.83-4.51); Lymphocyte % 20.3 % (19-41); Mean Corpuscular Hgb 26.1 pg (27.0-32.0); Mean Corpuscular Volume 87.2 fL (81-99); Monocyte# 0.49 X10^3/uL; Monocyte% 8.3 % (0-10); NRBC Flagged by Analyzer 0 % (0-5); Neutrophil # 3.92 X10^3/uL (2.7-7.7); Neutrophil % 66.8 % (47-70); Platelet Count 241 K/mm3 (150-450); RBC Distribution Width CV 13.8 % (11.6-14.6); RBC Distribution Width SD 44.2 fl (35.1-43.9); Red Blood Count 4.67 M/mm3 (4.2-5.4); White Blood Count 5.9 K/mm3 (4.4-11.0)
[2022-04-11 15:32] LABS: AST(SGOT) 17 U/L (15-37); Alanine Aminotransfer ALT/SGPT 21 U/L (13-56); Albumin, Serum 3.8 g/dL (3.2-5.0); Alkaline Phosphatase 89 U/L (45-117); Bilirubin, Direct 0.11 mg/dL (0.00-0.30); Globulin 3.5 g/dL (2.2-4.2); Protein, Total 7.3 g/dL (6.4-8.2)
== END 2022-04-30 18:00 | disposition home or self-care (01) ==
LOC: MTLAB 11:48
PROVIDERS: PCP Nurse Practitioner Primary Care; Referring Provider Internal Medicine Pulmonary Disease; Visit Provider Internal Medicine Pulmonary Disease
DX: R05.9 Cough, unspecified (principal); J84.116 Cryptogenic organizing pneumonia
CPT/HCPCS: 36415; 80076; 85025

== ENCOUNTER → 2022-06-03 | Outpatient (CLI) | payer OTHER, SELFPAY ==
[2022-06-03 12:22] LABS: Erythrocyte Sedimentation Rate 25 mm/hr (0-30)
[2022-06-03 12:27] LABS: Absolute Lymphocyte Count 1.12 X10^3/uL (0.83-4.51); Absolute Neutrophil Count 4.5 X10^3/uL (2.0-7.7); Basophil# 0.03 X10^3/uL; Basophil% 0.5 % (0-1); Eosinophils% 3.2 % (0-5); Hematocrit 41.1 % (37-47); Lymphocyte # 1.12 X10^3/ul (0.83-4.51); Lymphocyte % 17.8 % (19-41); Mean Corp Hgb Conc 29.2 g/dL (32-36); Mean Corpuscular Hgb 25.1 pg (27.0-32.0); Mean Corpuscular Volume 85.8 fL (81-99); Mean Platelet Vol. 10.1 fl (6.2-12.0); Monocyte# 0.46 X10^3/uL; Monocyte% 7.3 % (0-10); NRBC Flagged by Analyzer 0 % (0-5); Neutrophil # 4.46 X10^3/uL (2.7-7.7); Neutrophil % 70.9 % (47-70); Platelet Count 265 K/mm3 (150-450); RBC Distribution Width CV 14.2 % (11.6-14.6); RBC Distribution Width SD 44.6 fl (35.1-43.9); Red Blood Count 4.79 M/mm3 (4.2-5.4); White Blood Count 6.3 K/mm3 (4.4-11.0)
[2022-06-03 12:55] LABS: Vitamin B12 186 pg/mL (211-911)
[2022-06-03 13:27] LABS: ALB/GLOB Ratio 1.3 RATIO (0.9-2.4); AST(SGOT) 14 U/L (15-37); Alanine Aminotransfer ALT/SGPT 20 U/L (13-56); Albumin, Serum 3.8 g/dL (3.2-5.0); Alkaline Phosphatase 74 U/L (45-117); Anion Gap 4 (5-15); BUN 11 mg/dL (7-18); BUN/Creat Ratio 14.7 RATIO (10-20); Calcium,Total 8.1 mg/dL (8.5-10.1); Chloride 111 mmol/L (98-107); Creatinine, Serum 0.75 mg/dL (0.55-1.02); EST Glomerular Filtration Rate 84 mL/min (>60); Est Glom Filt Rate - Afr Amer 102 mL/min (>60); Globulin 2.9 g/dL (2.2-4.2); Glucose 87 mg/dL (74-106); Potassium 4.4 mmol/L (3.5-5.1); Protein, Total 6.7 g/dL (6.4-8.2); Sodium Level 142 mmol/L (136-145)
== END | disposition home or self-care (01) ==
PROVIDERS: PCP Nurse Practitioner Primary Care; Referring Provider Internal Medicine Rheumatology; Visit Provider Internal Medicine Rheumatology
DX: M06.4 Inflammatory polyarthropathy (principal); Z79.899 Other long term (current) drug therapy
CPT/HCPCS: 36415; 80053; 82607; 82746; 85025; 85652; 86140

== ENCOUNTER 2022-07-10 10:12 | Outpatient (RCR) | payer OTHER, SELFPAY ==
[2022-07-10 12:01] LABS: Absolute Lymphocyte Count 1.18 X10^3/uL (0.83-4.51); Absolute Neutrophil Count 4.9 X10^3/uL (2.0-7.7); Basophil# 0.02 X10^3/uL; Basophil% 0.3 % (0-1); Eosinophil# 0.21 X10^3/uL; Eosinophils% 3.1 % (0-5); Hematocrit 41.6 % (37-47); Hemoglobin 12.1 g/dL (12.0-15.0); Lymphocyte # 1.18 X10^3/ul (0.83-4.51); Lymphocyte % 17.2 % (19-41); Mean Corp Hgb Conc 29.1 g/dL (32-36); Mean Corpuscular Hgb 24.5 pg (27.0-32.0); Mean Corpuscular Volume 84.4 fL (81-99); Mean Platelet Vol. 9.8 fl (6.2-12.0); Monocyte# 0.52 X10^3/uL; Monocyte% 7.6 % (0-10); NRBC Flagged by Analyzer 0 % (0-5); Neutrophil # 4.93 X10^3/uL (2.7-7.7); Neutrophil % 71.5 % (47-70); Platelet Count 270 K/mm3 (150-450); RBC Distribution Width CV 14.4 % (11.6-14.6); RBC Distribution Width SD 43.9 fl (35.1-43.9); Red Blood Count 4.93 M/mm3 (4.2-5.4); White Blood Count 6.9 K/mm3 (4.4-11.0)
[2022-07-10 12:15] LABS: AST(SGOT) 19 U/L (15-37); Alanine Aminotransfer ALT/SGPT 25 U/L (13-56); Albumin, Serum 3.5 g/dL (3.2-5.0); Alkaline Phosphatase 70 U/L (45-117); Bilirubin, Direct 0.12 mg/dL (0.00-0.30); Globulin 3.7 g/dL (2.2-4.2); Protein, Total 7.2 g/dL (6.4-8.2)
== END 2022-07-10 18:00 | disposition home or self-care (01) ==
LOC: MTLAB 10:12
PROVIDERS: PCP Nurse Practitioner Primary Care; Referring Provider Internal Medicine Pulmonary Disease; Visit Provider Internal Medicine Pulmonary Disease
DX: J84.116 Cryptogenic organizing pneumonia (principal); R05.9 Cough, unspecified
CPT/HCPCS: 36415; 80076; 85025

== ENCOUNTER 2022-09-30 11:49 | Outpatient (RCR) | payer OTHER, SELFPAY ==
[2022-09-30 15:33] LABS: Absolute Lymphocyte Count 1.17 X10^3/uL (0.83-4.51); Absolute Neutrophil Count 4.6 X10^3/uL (2.0-7.7); Basophil# 0.03 X10^3/uL; Basophil% 0.5 % (0-1); Eosinophils% 3.1 % (0-5); Hematocrit 41.2 % (37-47); Hemoglobin 12.2 g/dL (12.0-15.0); Lymphocyte # 1.17 X10^3/ul (0.83-4.51); Mean Corp Hgb Conc 29.6 g/dL (32-36); Mean Corpuscular Hgb 25.3 pg (27.0-32.0); Mean Corpuscular Volume 85.5 fL (81-99); Mean Platelet Vol. 10.5 fl (6.2-12.0); Monocyte# 0.49 X10^3/uL; Monocyte% 7.5 % (0-10); NRBC Flagged by Analyzer 0 % (0-5); Neutrophil % 70.7 % (47-70); Platelet Count 247 K/mm3 (150-450); RBC Distribution Width SD 43.3 fl (35.1-43.9); Red Blood Count 4.82 M/mm3 (4.2-5.4); White Blood Count 6.5 K/mm3 (4.4-11.0)
[2022-09-30 16:02] LABS: AST(SGOT) 20 U/L (15-37); Alanine Aminotransfer ALT/SGPT 23 U/L (13-56); Albumin, Serum 3.5 g/dL (3.2-5.0); Alkaline Phosphatase 80 U/L (45-117); Globulin 3.5 g/dL (2.2-4.2)
== END 2022-09-30 12:49 | disposition home or self-care (01) ==
LOC: MTLAB 11:49
PROVIDERS: PCP Nurse Practitioner Primary Care; Referring Provider Internal Medicine Pulmonary Disease; Visit Provider Internal Medicine Pulmonary Disease
DX: J84.116 Cryptogenic organizing pneumonia (principal)
CPT/HCPCS: 36415; 80076; 85025

== ENCOUNTER → 2022-11-28 | Outpatient (CLI) | payer OTHER, SELFPAY ==
[2022-11-28 12:59] LABS: Erythrocyte Sedimentation Rate 30 mm/hr (0-30)
[2022-11-28 13:03] LABS: Absolute Lymphocyte Count 1.43 X10^3/uL (0.83-4.51); Absolute Neutrophil Count 6.9 X10^3/uL (2.0-7.7); Basophil# 0.05 X10^3/uL; Basophil% 0.5 % (0-1); Eosinophil# 0.19 X10^3/uL; Hematocrit 41.6 % (37-47); Lymphocyte # 1.43 X10^3/ul (0.83-4.51); Lymphocyte % 15.4 % (19-41); Mean Corp Hgb Conc 28.8 g/dL (32-36); Mean Corpuscular Hgb 24.8 pg (27.0-32.0); Mean Corpuscular Volume 86.1 fL (81-99); Mean Platelet Vol. 9.7 fl (6.2-12.0); Monocyte# 0.69 X10^3/uL; Monocyte% 7.4 % (0-10); NRBC Flagged by Analyzer 0 % (0-5); Neutrophil # 6.92 X10^3/uL (2.7-7.7); Neutrophil % 74.4 % (47-70); Platelet Count 334 K/mm3 (150-450); RBC Distribution Width CV 13.8 % (11.6-14.6); RBC Distribution Width SD 42.6 fl (35.1-43.9); Red Blood Count 4.83 M/mm3 (4.2-5.4); White Blood Count 9.3 K/mm3 (4.4-11.0)
[2022-11-28 13:05] LABS: ALB/GLOB Ratio 0.9 RATIO (0.9-2.4); AST(SGOT) 17 U/L (15-37); Alanine Aminotransfer ALT/SGPT 22 U/L (13-56); Albumin, Serum 3.2 g/dL (3.2-5.0); Alkaline Phosphatase 71 U/L (45-117); Anion Gap 5 (5-15); BUN 20 mg/dL (7-18); BUN/Creat Ratio 23.6 RATIO (10-20); Calcium,Total 8.7 mg/dL (8.5-10.1); Chloride 106 mmol/L (98-107); Creatinine, Serum 0.85 mg/dL (0.55-1.02); EST Glomerular Filtration Rate 72 mL/min (>60); Est Glom Filt Rate - Afr Amer 87 mL/min (>60); Globulin 3.6 g/dL (2.2-4.2); Glucose 85 mg/dL (74-106); Potassium 4.2 mmol/L (3.5-5.1); Protein, Total 6.8 g/dL (6.4-8.2); Sodium Level 141 mmol/L (136-145)
== END | disposition home or self-care (01) ==
LOC: MTLAB 11:09
PROVIDERS: PCP Nurse Practitioner Primary Care; Referring Provider Internal Medicine Rheumatology; Visit Provider Internal Medicine Rheumatology
DX: M06.4 Inflammatory polyarthropathy (principal); M35.00 Sjogren syndrome, unspecified; J84.116 Cryptogenic organizing pneumonia; E21.3 Hyperparathyroidism, unspecified; Z79.899 Other long term (current) drug therapy; M79.7 Fibromyalgia; M17.0 Bilateral primary osteoarthritis of knee; E03.9 Hypothyroidism, unspecified; Z98.84 Bariatric surgery status; N20.0 Calculus of kidney; L66.1 Lichen planopilaris; M81.0 Age-related osteoporosis without current pathological fracture
CPT/HCPCS: 36415; 80053; 85025; 85652; 86140

== ENCOUNTER 2023-01-07 09:40 | Outpatient (RCR) | payer OTHER, SELFPAY ==
[2023-01-07 12:11] LABS: Absolute Lymphocyte Count 1.19 X10^3/uL (0.83-4.51); Absolute Neutrophil Count 4.7 X10^3/uL (2.0-7.7); Basophil# 0.04 X10^3/uL; Basophil% 0.6 % (0-1); Eosinophil# 0.18 X10^3/uL; Eosinophils% 2.7 % (0-5); Hematocrit 40.9 % (37-47); Hemoglobin 12.2 g/dL (12.0-15.0); Lymphocyte # 1.19 X10^3/ul (0.83-4.51); Lymphocyte % 18.1 % (19-41); Mean Corp Hgb Conc 29.8 g/dL (32-36); Mean Corpuscular Hgb 25.3 pg (27.0-32.0); Mean Corpuscular Volume 84.9 fL (81-99); Mean Platelet Vol. 9.9 fl (6.2-12.0); Monocyte% 7.6 % (0-10); NRBC Flagged by Analyzer 0 % (0-5); Neutrophil # 4.66 X10^3/uL (2.7-7.7); Neutrophil % 70.7 % (47-70); Platelet Count 266 K/mm3 (150-450); RBC Distribution Width CV 13.9 % (11.6-14.6); RBC Distribution Width SD 42.7 fl (35.1-43.9); Red Blood Count 4.82 M/mm3 (4.2-5.4); White Blood Count 6.6 K/mm3 (4.4-11.0)
[2023-01-07 12:29] LABS: AST(SGOT) 17 U/L (15-37); Alanine Aminotransfer ALT/SGPT 21 U/L (13-56); Albumin, Serum 3.4 g/dL (3.2-5.0); Alkaline Phosphatase 79 U/L (45-117); Globulin 3.6 g/dL (2.2-4.2)
== END 2023-01-07 18:00 | disposition home or self-care (01) ==
LOC: MTLAB 09:40
PROVIDERS: PCP Nurse Practitioner Primary Care; Referring Provider Internal Medicine Pulmonary Disease; Visit Provider Internal Medicine Pulmonary Disease
DX: Z79.899 Other long term (current) drug therapy (principal)
CPT/HCPCS: 36415; 80076; 85025

== ENCOUNTER 2023-04-27 11:08 | Outpatient (RCR) | payer OTHER, SELFPAY ==
[2023-04-27 12:52] LABS: AST(SGOT) 15 U/L (15-37); Alanine Aminotransfer ALT/SGPT 20 U/L (13-56); Albumin, Serum 3.5 g/dL (3.2-5.0); Alkaline Phosphatase 83 U/L (45-117); Bilirubin, Direct 0.14 mg/dL (0.00-0.30); Globulin 3.6 g/dL (2.2-4.2); Protein, Total 7.1 g/dL (6.4-8.2)
[2023-04-27 12:53] LABS: Hematocrit 40.7 % (37-47); Hemoglobin 11.9 g/dL (12.0-15.0); Mean Corp Hgb Conc 29.2 g/dL (32-36); Mean Corpuscular Hgb 25.4 pg (27.0-32.0); Mean Platelet Vol. 10.3 fl (6.2-12.0); Platelet Count 250 K/mm3 (150-450); RBC Distribution Width SD 44.1 fl (35.1-43.9); Red Blood Count 4.68 M/mm3 (4.2-5.4); White Blood Count 6.8 K/mm3 (4.4-11.0)
== END 2023-04-30 18:00 | disposition home or self-care (01) ==
LOC: MTLAB 11:08
PROVIDERS: PCP Nurse Practitioner Primary Care; Referring Provider Internal Medicine Pulmonary Disease; Visit Provider Internal Medicine Pulmonary Disease
DX: J84.116 Cryptogenic organizing pneumonia; Z79.899 Other long term (current) drug therapy
CPT/HCPCS: 36415; 80076; 85027

== ENCOUNTER → 2023-06-11 | Outpatient (CLI) | payer OTHER, SELFPAY ==
[2023-06-11 12:25] LABS: Absolute Lymphocyte Count 1.27 X10^3/uL (0.83-4.51); Absolute Neutrophil Count 6.6 X10^3/uL (2.0-7.7); Basophil# 0.03 X10^3/uL; Basophil% 0.3 % (0-1); Eosinophil# 0.28 X10^3/uL; Eosinophils% 3.2 % (0-5); Hematocrit 39.9 % (37-47); Hemoglobin 11.5 g/dL (12.0-15.0); Lymphocyte # 1.27 X10^3/ul (0.83-4.51); Lymphocyte % 14.4 % (19-41); Mean Corp Hgb Conc 28.8 g/dL (32-36); Mean Corpuscular Hgb 25.1 pg (27.0-32.0); Mean Corpuscular Volume 87.1 fL (81-99); Mean Platelet Vol. 9.9 fl (6.2-12.0); Monocyte# 0.64 X10^3/uL; Monocyte% 7.3 % (0-10); NRBC Flagged by Analyzer 0 % (0-5); Neutrophil # 6.55 X10^3/uL (2.7-7.7); Neutrophil % 74.3 % (47-70); Platelet Count 270 K/mm3 (150-450); RBC Distribution Width CV 14.1 % (11.6-14.6); RBC Distribution Width SD 44.8 fl (35.1-43.9); Red Blood Count 4.58 M/mm3 (4.2-5.4); White Blood Count 8.8 K/mm3 (4.4-11.0)
--- OUTSIDE RECORDS SUMMARY | 2023-06-11 12:58 | XMS RPT_ITS | CCD ---
Author Name Unknown Address [address] [place] [address] Organization [facility] Care Team Providers Care Heel Molder Name Role Phone HEENA DENTAL TECHNICIAN INSTRUCTOR-DYLLAN, SABI S Primary Care Physicia n HEENA CHERRY-DYLLAN, [facility] Primary Care Unava ilable HEENA CHERRY-SATELLITE COMMUNICATIONS OPERATOR, [facility] Attending Unava ilable HEENA CHERRY-SATELLITE COMMUNICATIONS OPERATOR, [facility] Primary Care Unava ilable FARZAD MENA, DR ADAM Pena Attending Unavail able HEENA DENTAL TECHNICIAN INSTRUCTOR-SATELLITE COMMUNICATIONS OPERATOR, [facility] Primary Care Unava ilable ELÍAS MENA, ANDI Attending Unavaila ble HEENA DENTAL TECHNICIAN INSTRUCTOR-SATELLITE COMMUNICATIONS OPERATOR, [facility] Primary Care Unava ilable ELÍAS MENA, ANDI Attending Unavaila ble HEENA DENTAL TECHNICIAN INSTRUCTOR-SATELLITE COMMUNICATIONS OPERATOR, [facility] Primary Care Unava ilable ELÍAS MENA, ANDI Attending Unavaila ble HEENA DENTAL TECHNICIAN INSTRUCTOR-SATELLITE COMMUNICATIONS OPERATOR, [facility] Primary Care Unava ilable ELÍAS MENA, ANDI Attending Unavaila ble HEENA DENTAL TECHNICIAN INSTRUCTOR-SATELLITE COMMUNICATIONS OPERATOR, [facility] Primary Care Unava ilable ELÍAS MENA, ANDI Attending Unavaila ble Allergies Allergy Classification Reported Allergen(s) Allergy Type Date of Onset Reaction(s) Facility (14 sources) Acetaminophen / oxyCODONE; Translations: [acetaminophen-oxy codone] Drug Allergy I see spiders [facility] Work Phone: (14 sources) Ibandronate; Translations: [ibandronate] Drug Allergy Chest pain (finding) [facility] Work Phone: Medications Current Medications Medication Drug Class(es) Dates Sig (Normalized) Sig (Original) acetaminophen 325 mg / HYDROcodone bitartrate 5 mg oral tablet (1 source) Opioid Agonist Start: 05-27-2021 End: 06-03-2021 take 1 tablet by mouth every six hours as needed for pain acetaminophen-hyd rocodone 325 mg-5 mg oral tablet Dose = 1 tab(s), Oral, q6h, PRN for pain, X 7 day(s), # 28 tab(s), 0 Refill(s), Pharmacy: [id number] [facility], Lumbar pain Thoracic spine pain, 171, cm, 05/27/21 9:28:00 EST, Height, 144.2, kg, 05/27/21 9:28:00 EST, Dosing Weight Start Date: 05/27/21 Stop Date: 06/03/21 Status: Ordered calcitriol 0.36881 mg oral capsule (10 sources) Vitamin D3 Analog Start: 10-10-2022 calcitriol 0.25 mcg oral capsule Dose : 0.25 mcg = 1 cap(s), Oral, Daily, # 90 cap(s), 3 Refill(s), Pharmacy: [facility], 170, cm, 07/31/22 10:11:00 EST, Height, kg, 07/31/22 10:11:00 EST, Dosing Weight Start Date: 10/10/22 Status: Ordered Completed/Discontinued Medications Medication Drug Class(es) Dates Sig (Normalized) Sig (Original) 1 ml denosumab 60 mg/ml prefilled syringe (6 sources) RANK Ligand Inhibitor Start: 08-26-2021 Prolia 60 mg/mL subcutaneous solution Dose : 60 mg = 1 mL, Subcutaneous, q6mo, # 1 mL, 1 Refill(s), Pharmacy: [facility], 171, cm, 06/11/21 15:58:00 EST, Height, kg, 06/11/21 15:55:00 EST, Dosing Weight Start Date: 08/26/21 Status: Ordered predniSONE 10 mg oral tablet (4 sources) Start: 11-24-2022 End: 11-30-2022 prednisone 10mg tab (TAPER) Taper [id number] x 1 day, Oral, qAM, # 21 tab(s), 0 Refill(s), Pharmacy: [facility] #[id number], Muscle strain, 170, cm, 11/24/22 8:58:00 EDT, Height Start Date: 11/24/22 Stop Date: 11/30/22 Status: Ordered Problems Problem Classification Problem Date Documented Da te Episodic/Chronic Cataract (14 sources) Bilateral cataracts 12-04-2020 Chronic Essential hypertension (15 sources) Hypertensive disorder; Translations: [Essential hypertension] 05-10-2020 Chronic Nutritional deficiencies (15 sources) Vitamin D deficiency; Translations: [Vitamin D deficiency, unspecified] 01-05-2020 Chronic Osteoporosis (15 sources) Osteoporosis; Translations: [Primary osteoporosis] 01-05-2020 Chronic Other aftercare (1 source) [facility]DC systemic steroid user; Translations: [exterminator (current) use of systemic steroids] Episodic Other endocrine disorders (16 sources) Hyperparathyroidism; Translations: [Hyperparathyroidism, unspecified] 01-05-2020 Chronic Other fractures (11 sources) Compression fracture of thoracic spine 06-11-2021 Episodic Other gastrointestinal disorders (4 sources) Diarrhea 11-11-2022 Episodic Other inflammatory condition of skin (14 sources) 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 Episodic Other injuries and conditions due to external causes (3 sources) Muscle strain 12-10-2022 Episodic Other lower respiratory disease (15 sources) Cryptogenic organizing pneumonia; Translations: [Cryptogenic organizing pneumonia] 05-10-2020 Chronic Other lower respiratory disease (14 sources) Cough 07-13-2019 Episodic Other lower respiratory disease (14 sources) Dyspnea 08-03-2019 Episodic Other non-traumatic joint disorders (14 sources) Polyarthropathy 01-05-2020 Chronic Other non-traumatic joint disorders (10 sources) Pain in wrist 11-19-2021 Episodic Other screening for suspected conditions (not mental disorders or infectious disease) (12 sources) Plain X-ray thoracic spine abnormal 05-29-2021 Episodic Pancreatic disorders (not diabetes) (14 sources) Atrophy of pancreas 04-07-2019 Episodic Spondylosis; intervertebral disc disorders; other back problems (20 sources) Low back pain; Translations: [Pain in thoracic spine] 05-27-2021 Episodic Systemic lupus erythematosus and connective tissue disorders (14 sources) Sjogren's syndrome 01-05-2020 Chronic Thyroid disorders (16 sources) Hypothyroidism; Translations: [Hypothyroidism, unspecified] 02-27-2015 Chronic Unclassified (14 sources) Long-term current use of steroid 01-05-2020 Unclassified (20 sources) Patient encounter status 08-06-2020 Results Test Name Value Interpretation Reference Range Facil ity Vital Signs Date Time Vital Sign Value Performing Clinician Isabel litjose 01-19-2023 10:53-0400 Diastolic Blood Pressure Non-Invasive [address] ADAM PANDA MD [facility] 01-19-2023 10:53-0400 Heart rate 74 /min DR ADAM PANDA MD [facility] 01-19-2023 10:53-0400 Respiratory rate 14 /min DR ADAM PANDA MD [facility] 01-19-2023 10:53-0400 Systolic Blood Pressure Non-Invasive [address] ADAM PANDA MD [facility] 01-19-2023 10:29-0400 Diastolic Blood Pressure Non-Invasive [address] ADAM PANDA MD [facility] 01-19-2023 10:29-0400 Heart rate 74 /min DR ADAM PANDA MD [facility] 01-19-2023 10:29-0400 Respiratory rate 14 /min DR ADAM PANDA MD [facility] 01-19-2023 10:29-0400 Systolic Blood Pressure Non-Invasive [address] ADAM PANDA MD [facility] 01-19-2023 10:20-0400 Heart rate 71 /min DR ADAM PANDA MD [facility] 01-19-2023 10:20-0400 Respiratory Rate - Anes 23 br/min DR ADAM PANDA MD [facility] 01-19-2023 10:15-0400 Diastolic Blood Pressure Non-Invasive [address] ADAM PANDA MD [facility] 01-19-2023 10:15-0400 Respiratory Rate - Anes 20 br/min DR ADAM PANDA MD [facility] 01-19-2023 10:15-0400 Systolic Blood Pressure Non-Invasive [address] ADAM PANDA MD [facility] 01-19-2023 10:10-0400 Respiratory Rate - Anes 33 br/min DR ADAM PANDA MD [facility] 01-19-2023 09:28-0400 Body height [address] ADAM PANDA MD [facility] 01-19-2023 09:28-0400 Body weight [address] ADAM PANDA MD [facility] 01-19-2023 09:28-0400 Body weight 43.6 kg/m2 DR ADAM PANDA MD [facility] 01-19-2023 09:28-0400 Heart rate 85 /min DR ADAM PANDA MD [facility] 01-19-2023 09:28-0400 Respiratory rate 19 /min DR ADAM PANDA MD [facility] 08-15-2022 10:30-0400 Body temperature 98.24 [degF] ANDI MCKINLEY MD [facility] 08-15-2022 10:30-0400 Diastolic Blood Pressure Non-Invasive 77 1 ANDI MCKINLEY MD [facility] 08-15-2022 10:30-0400 Heart rate 88 /min ANDI MCKINLEY MD [facility] 08-15-2022 10:30-0400 Systolic Blood Pressure Non-Invasive 134 1 ANDI MCKINLEY MD [facility] Encounters Encounter Date Encounter Type Care Provider Facility Start: 05-08-2023 End: 05-09-2023 ambulatory SABI S HEENA DENTAL TECHNICIAN INSTRUCTOR-SATELLITE COMMUNICATIONS OPERATOR Facility:B Start: 05-08-2023 End: 05-08-2023 Patient encounter procedure ANDI MCKINLEY MD [facility] Start: 04-15-2023 End: 04-16-2023 ambulatory SABI S HEENA DENTAL TECHNICIAN INSTRUCTOR-SATELLITE COMMUNICATIONS OPERATOR Facility:[facility] Start: 01-19-2023 End: 01-19-2023 ambulatory SABI S HEENA DENTAL TECHNICIAN INSTRUCTOR-SATELLITE COMMUNICATIONS OPERATOR Facility:[facility] Start: 01-19-2023 End: 01-19-[address] ADAM PANDA MD [facility] Start: 12-17-2022 End: 12-18-2022 ambulatory SABI S HEENA DENTAL TECHNICIAN INSTRUCTOR-SATELLITE COMMUNICATIONS OPERATOR Facility:B Start: 12-17-2022 End: 12-17-2022 Patient encounter procedure SABI S HEENA DENTAL TECHNICIAN INSTRUCTOR-SATELLITE COMMUNICATIONS OPERATOR [facility] Start: 12-03-2022 End: 12-04-2022 ambulatory SABI S HEENA DENTAL TECHNICIAN INSTRUCTOR-SATELLITE COMMUNICATIONS OPERATOR Facility:B Start: 12-03-2022 End: 12-03-2022 Patient encounter procedure ANDI MCKINLEY MD [facility] Start: 08-15-2022 End: 08-15-2022 ambulatory SABI S HEENA DENTAL TECHNICIAN INSTRUCTOR-SATELLITE COMMUNICATIONS OPERATOR Facility:B Start: 08-15-2022 End: 08-15-2022 SAME DAY STAY ANDI MCKINLEY MD [facility] Start: 07-18-2022 End: 07-19-2022 ambulatory SABI NAIK DENTAL TECHNICIAN INSTRUCTOR-SATELLITE COMMUNICATIONS OPERATOR Facility:B Start: 07-18-2022 End: 07-18-2022 Patient encounter procedure ANDI MCKINLEY MD [facility] Start: 04-29-2022 End: 04-29-2022 Patient encounter procedure ANDI MCKINLEY MD [facility] Start: 03-11-2022 End: 03-11-2022 Patient encounter procedure ANDI MCKINLEY MD [facility] Start: 12-31-2021 End: 01-04-2022 Outreach Lab ANDI MCKINLEY MD [facility] Start: 12-30-2021 End: 12-30-2021 Patient encounter procedure ANDI MCKINLEY MD [facility] Start: 11-14-2021 End: 11-14-2021 Patient encounter procedure ILA VALLADARES DENTAL TECHNICIAN INSTRUCTOR-SATELLITE COMMUNICATIONS OPERATOR [facility] Start: 06-07-2021 End: 06-07-2021 Patient encounter procedure MARY SALINAS DO [facility] Start: 05-27-2021 End: 05-27-2021 Patient encounter procedure MARY SALINAS DO [facility] Start: 05-10-2021 End: 05-10-2021 Patient encounter procedure ANDI MCKINLEY MD [facility] Procedures Date Procedure Procedure Detail Performing Clinician Start: 08-30-2012 Arthroplasty of knee ETIENNE MCKINLEY MD Immunizations Immunization Date Immunization Notes Care Provider Fa cili 03-18-2023 zoster vaccine recombinant ANDI MCKINLEY MD [facility] [place] Payers Date Payer Category Payer Unknown [id number] 1960 Unknown [id number] [id number] 1960 Unknown [id number] 2.16.8 [id number] 1960 Unknown [id number] 2.16.8 [id number] 1960 Unknown [id number] 2.16.8 [id number] 1960 Unknown [id number] 2.16.8 [id number] 1960 Unknown [id number] 2.16.8 [id number] 1960 Unknown [id number] 2.16.8 [id number] Social History Date Type Detail Facility Start: 04-05-2019 Never smoked t obacco (finding) [facility] Sex Assigned At Female [facility] Functional Status Date Assessment Result Facility 01-19-2023 Functional Status Maintained Shanique Renzo ford [facility] Mental Status Date Assessment Result Facility 01-19-2023 Mental Status Orientation Asse ssment Oriented x 4 [facility] Clinical Notes 08-15-2022 to 01-19-2023 Note Date & Type Note Facility Orders: Lactated Ringers Infusion 1,000 mL, Start: 01/19/23 9:20:00 EDT, Rate: 20 mL/hr, 01/19/23 9:20:00 EDT Communication Order (scheduled) Communication Order (scheduled) Communication Order (scheduled) Consult to Anesthesia Sign Consent She is here for screening colonoscopy. Consent conference held. Future Appointments Appointment Date:04/16/2023 10:15:00 AM Scheduled Provider:ANDI MCKINLEY MD [facility] Appointment Type:ENDO OV Future Scheduled Tests Laboratory* Cross-Linked N-Telopeptide Urine 04/13/23 * Calcium Level Ionized 04/13/23 * Thyroid Stimulating Hormone 04/13/23 * Free T4 04/13/23 * Creatinine Random Urine 04/13/23 * Free T3 04/13/23 * PTH, Intact 04/13/23 * Vitamin D Level 04/13/23 * Complete Metabolic Panel 04/13/23 [facility] 08-21-2023 Hospital Discharge instructions Patient Education 01/19/2023 10:36:09 Moderate Conscious Sedation, Adult, Care After Moderate Conscious Sedation, Adult, Care After These instructions provide you with information about caring for yourself after your procedure. Your health care provider may also give you more specific instructions. Your treatment has been plannedaccording to current medical practices, but problems sometimes occur. Call your health care provider if you have any problems or questions after your procedure. What can I expect after the procedure? After your procedure, it is common: To feel sleepy for several hours. To feel clumsy and have poor balance for several hours. To have poor judgment for several hours. To vomit if you eat too soon. Follow these instructions at home: For at least 24 hours after the procedure: Do not: ?Participate in activities where you could fall or become injured. ?Drive. ?Use heavy machinery. ?Drink alcohol. ?Take sleeping pills or medicines that cause drowsiness. ?Make important decisions or sign legal documents. ?Take care of children on your own. Rest. Eating and drinking Follow the diet recommended by your health care provider. If you vomit: ?Drink water, juice, or soup when you can drink without vomiting. ?Make sure you have little or no nausea before eating solid foods. General instructions Have a responsible adult stay with you until you are awake and alert. Take ybqr-[id number] and prescription medicines only as told by your health care provider. If you smoke, do not smoke without supervision. Keep all follow-up visits as told by your health care provider. This is important. Contact a health care provider if: You keep feeling nauseous or you keep vomiting. You feel light-headed. You develop a rash. You have a fever. Get help right away if: You have trouble breathing. This information is not intended to replace advice given to you by your health care provider. Make sure you discuss any questions you have with your health care provider. Document Released: 03/08/2014 Document Revised: 04/30/2018 Document Reviewed: 09/06/2016 [employer] Patient Education 2020 [employer]. 01/19/2023 10:36:03 Colonoscopy, Adult, Care After, Cxvi-wb-Veud Colonoscopy, Adult, Care After This sheet gives you information about how to care for yourself after your procedure. Your doctor may also give you more specific instructions. If you have problems or questions, call your doctor. What can I expect after the procedure? After the procedure, it is common to have: A small amount of blood in your poop for 24 hours. Some gas. Mild cramping or bloating in your belly. Follow these instructions at home: General instructions For the first 24 hours after the procedure: ?Do not drive or use machinery. ?Do not sign important documents. ?Do not drink alcohol. ?Do your daily activities more slowly than normal. ?Eat foods that are soft and easy to digest. Take ibhh-qkd-aumobvr or prescription medicines only as told by your doctor. To help cramping and bloating: Try walking around. Put heat on your belly (abdomen) as told by your doctor. Use a heat source that your doctor recommends, such as a moist heat pack or a heating pad. ?Put a towel between your skin and the heat source. ?Leave the heat on for 20 30 minutes. ?Remove the heat if your skin turns bright red. This is especially important if you cannot feel pain, heat, or cold. You can get burned. Eating and drinking Drink enough fluid to keep your pee (urine) clear or pale yellow. Return to your normal diet as told by your doctor. Avoid heavy or fried foods that are hard to digest. Avoid drinking alcohol for as long as told by your doctor. Contact a doctor if: You have blood in your poop (stool) 2 3 days after the procedure. Get help right away if: You have more than a small amount of blood in your poop. You see large clumps of tissue (blood clots) in your poop. Your belly is swollen. You feel sick to your stomach (nauseous). You throw up (vomit). You have a fever. You have belly pain that gets worse, and medicine does not help your pain. Summary After the procedure, it is common to have a small amount of blood in your poop. You may also have mild cramping and bloating in your belly. For the first 24 hours after the procedure, do not drive or use machinery, do not sign important documents, and do not drink alcohol. Get help right away if you have a lot of blood in your poop, feel sick to your stomach, have a fever, or have more belly pain. This information is not intended to replace advice given to you by your health care provider. Make sure you discuss any questions you have with your health care provider. Document Released: 06/20/2011 Document Revised: 03/18/2018 Document Reviewed: 02/09/2017 [employer] Patient Education 2020 [employer]. Follow Up Care 01/14/2023 14:51:56 With:ADAM PANDA MD, Clinical Gastroenterology Address: [address] [facility] [place] [address] [phone] When: Unknown Comments:Follow up in 10 years. [facility] 08-21-2023 Summary of episode note Discharge Instructions Thank you for allowing [facility] to assist you with your healthcare needs. The following is importantdischarge information regarding your hospital visit. Your Care Team SABI NAIK APRN-SATELLITE COMMUNICATIONS OPERATOR What to do next Scheduled Follow-Up Appointments Appointment Type When With Where Contact InformationENDO OV 04/16/2023 10:15 AM ANDI BRYANT MD [facility] [place] Follow Up Appointments Follow Up with ADAM PANDA MD, Clinical Gastroenterology When Why: Follow up in 10 years. Where: [address] [facility] [place] [address] [phone] The Following Activity and Diet Have Been Ordered for You Discharge Activity - Ordered -- Other, Follow the post-operative/post-procedure activity instructions provided by your physician's office., 01/19/23 10:22:00 EDT Discharge Diet - Ordered -- Follow the post-operative/post-procedure diet instructions provided by your physician's office.,01/19/23 10:22:00 EDT The Following Equipment Has Been Ordered for You No qualifying data available. The Following Treatments Have Been Ordered for You Discharge Labs No qualifying data available. Discharge Radiology No qualifying data available. Other Therapies No qualifying data available. Post Acute Orders No qualifying data available. Someone Will Contact You Regarding These Home Health Referrals No home referrals have been ordered for you. No one will call you. Allergies Boniva (Chest pain) Percocet 5/325 (I see spiders) Medications Please ask your primary doctor or pharmacist before taking any other medication not listed, including over the counter drugs, herbal medications, vitamins and or supplements as they may interact withyour home medications. What How Much When Why Instructions Last Dose Unchanged calcitriol (calcitriol 0.25 mcg oral capsule) 1 cap by mouth Every day Unchanged calcium-vitamin D (Citracal Petites 200 mg-250 intl units oral tablet) 1 tab(s) by mouth Once a day Unchanged ergocalciferol (ergocalciferol 50,000 intl units (1.25 mg) oral capsule) 1 cap by mouth 2 times a week Vitamin D deficiency do not fill till pt calls for it Unchanged ergocalciferol (Vitamin D2 2000 intl units oral capsule) 1 cap by mouth Once a day with food Unchanged finasteride (finasteride 5 mg oral tablet) 1 tab(s) by mouth Once a day Unchanged herbal/ nutritional product (flax seed oil 1000 mg oral capsule) 1 cap by mouth Three (3) times a day Unchanged hydroxychloroquine (hydroxychloroquine 200 mg oral tablet) 1 tab(s) by mouth Two (2) times a day Unchanged levothyroxine (Synthroid 150 mcg (0.15 mg) oral tablet) 1 tab(s) by mouth Once a day Hypothyroid 0 on thursday Unchanged liothyronine (Cytomel 5 mcg oral tablet) 2 tab(s) by mouth Two (2) times a day Unchanged multivitamin (Vitamin B Complex oral capsule) 1 cap by mouth Every day Unchanged multivitamin with minerals (Multi-Day Plus Minerals) by mouth Once a day Unchanged mycophenolate mofetil (mycophenolate mofetil 500 mg oral tablet) take 2 tablets by mouth twice a day Unchanged ocular lubricant (Systane ophthalmic solution) 1 Drops Ophthalmic Two (2) times a day as needed for for dry eyes Unchanged polyethylene glycol 3350 with electrolytes (polyethylene glycol 3350 with electrolytes oral powder for reconstitution) See instructions Colon cancer screening As directed by provider at [facility]. Unchanged zoledronic acid (Reclast 5 mg/ 100 mL intravenous solution) 5 Milligram IV Piggyback Yearly had completed Please take this list to your next doctor s visit. Bring all medications you take, including over the counter medications, herbals and other supplements with you to your doctor s visit. Patients and families are reminded to discard old lists and to update any records with all medication providers or retail pharmacies. Education Materials Moderate Conscious Sedation, Adult, Care After These instructions provide you with information about caring for yourself after your procedure. Your health care provider may also give you more specific instructions. Your treatment has been plannedaccording to current medical practices, but problems sometimes occur. Call your health care provider if you have any problems or questions after your procedure. What can I expect after the procedure? After your procedure, it is common: To feel sleepy for several hours. To feel clumsy and have poor balance for several hours. To have poor judgment for several hours. To vomit if you eat too soon. Follow these instructions at home: For at least 24 hours after the procedure: Do not: ? Participate in activities where you could fall or become injured. ? Drive. ? Use heavy machinery. ? Drink alcohol. ? Take sleeping pills or medicines that cause drowsiness. ? Make important decisions or sign legal documents. ? Take care of children on your own. Rest. Eating and drinking Follow the diet recommended by your health care provider. If you vomit: ? Drink water, juice, or soup when you can drink without vomiting. ? Make sure you have little or no nausea before eating solid foods. General instructions Have a responsible adult stay with you until you are awake and alert. Take jrqh-xns-ejdvtgf and prescription medicines only as told by your health care provider. If you smoke, do not smoke without supervision. Keep all follow-up visits as told by your health care provider. This is important. Contact a health care provider if: You keep feeling nauseous or you keep vomiting. You feel light-headed. You develop a rash. You have a fever. Get help right away if: You have trouble breathing. This information is not intended to replace advice given to you by your health care provider. Make sure you discuss any questions you have with your health care provider. Document Released: 03/08/2014 Document Revised: 04/30/2018 Document Reviewed: 09/06/2016 [employer] Patient Education 2020 [employer]. Colonoscopy, Adult, Care After This sheet gives you information about how to care for yourself after your procedure. Your doctor may also give you more specific instructions. If you have problems or questions, call your doctor. What can I expect after the procedure? After the procedure, it is common to have: A small amount of blood in your poop for 24 hours. Some gas. Mild cramping or bloating in your belly. Follow these instructions at home: General instructions For the first 24 hours after the procedure: ? Do not drive or use machinery. ? Do not sign important documents. ? Do not drink alcohol. ? Do your daily activities more slowly than normal. ? Eat foods that are soft and easy to digest. Take [id number] or prescription medicines only as told by your doctor. To help cramping and bloating: Try walking around. Put heat on your belly (abdomen) as told by your doctor. Use a heat source that your doctor recommends, such as a moist heat pack or a heating pad. ? Put a towel between your skin and the heat source. ? Leave the heat on for 20 30 minutes. ? Remove the heat if your skin turns bright red. This is especially important if you cannot feel pain, heat, or cold. You can get burned. Eating and drinking Drink enough fluid to keep your pee (urine) clear or pale yellow. Return to your normal diet as told by your doctor. Avoid heavy or fried foods that are hard to digest. Avoid drinking alcohol for as long as told by your doctor. Contact a doctor if: You have blood in your poop (stool) 2 3 days after the procedure. Get help right away if: You have more than a small amount of blood in your poop. You see large clumps of tissue (blood clots) in your poop. Your belly is swollen. You feel sick to your stomach (nauseous). You throw up (vomit). You have a fever. You have belly pain that gets worse, and medicine does not help your pain. Summary After the procedure, it is common to have a small amount of blood in your poop. You may also have mild cramping and bloating in your belly. For the first 24 hours after the procedure, do not drive or use machinery, do not sign important documents, and do not drink alcohol. Get help right away if you have a lot of blood in your poop, feel sick to your stomach, have a fever, or have more belly pain. This information is not intended to replace advice given to you by your health care provider. Make sure you discuss any questions you have with your health care provider. Document Released: 06/20/2011 Document Revised: 03/18/2018 Document Reviewed: 02/09/2017 [employer] Patient Education 2020 [employer]. Additional Information VACCINATE! IT SAVES LIVES! Members of the community who have not yet received the COVID-19 vaccine and would like to receive it can visit one of [facility] vaccine clinics. There are many vaccine clinic locations within the [facility]. For locations and available times, please visit [email or web address] It is important to note that some COVID mobile vaccine clinics are held outdoors and may be canceled in rainy or stormy conditions. To learn more about pediatric vaccinations (ages 5-11), we invite you to visit the [facility] webpage. [email or web address]/[email or web address] [email or web address].htmlTo learn more about the COVID-19 vaccine, we invite you to visit the CDC website for a list of frequently asked questions.https://www.cdc.gov/coronavirus/2019-ncov/vaccines/faq.html [facility] Patient Portal Access Instructions: Stay connected with your healthcare team and access your personal medical information anytime with the [employer] [employer] Patient Portal. Please follow the directions below to create your [facility] [employer] account: 1.Access the email account you provided upon registration to the hospital/physician office.2.Look for an invitation email from [facility].3.Open the email and access the invitation link: AcceptInvitation to [facility].4.Fill in the required layne to create your account. To access your account, visit [employer]. Click the blue button labeled Access Patient Portal and then log in with the username and password that you created in the steps above. You will be able to view your test results, lab results, a summary of your visits, upcoming appointments and more. There is also a convenient messaging option where you can send secure messages to your p [employer]. In addition, you will have the ability to download any documents or summaries to your computer and/or send the information securely to a physician. Remember that your healthcare information is confidential, so carefully consider who you will allowto register on the [facility] Patient Portal for access to your information. You can also access the [facility] Patient Portal on the [facility] ozzy. Simply click on Patient Portal and then log into your account. If you would like to receive a full copy of your medical records, please contact the [facility] Medical Records Department by calling [phone], Thursday through Thursday between 8 a.m. and 4:30 p.m. HOW TO SAFELY DISPOSE OF PRESCRIPTION MEDICATIONS Please use one of the following methods to safely dispose of your unused medications. 1.Use a drug disposal kit: the drug disposal pouch allows you to safely discard your old and unuseddrugs. Ask your nurse to give you one when you are discharged.2.Visit a local take-back location: Many local pharmacies and police departments have programs that collect old and unwanted prescriptiondrugs. Call your local pharmacy or go to http://[place].[employer]/8K6Fw0n to find one close to you.3.Make use of household items: Use cat litter or old coffee grounds to dispose medications if other options arenot available. Mix your drugs with these household products, seal them in an airtight container andthrow it into the garbage. Call [facility]: [phone] to be sure your drugs can be disposed of in this way. Some medicines may require a different approach.4.Never flush your medications down the toilet. IF YOU HAVE BEEN PRESCRIBED AN OPIOID FOR PAIN If you have been prescribed an opioid (such as hydrocodone, oxycodone or morphine), it is critical to understand the possible side effects and risks of opioid pain medications. Even when taken as directed, opioids can have several side effects including: Tolerance, meaning you might need to take more of a medication for the same pain relief. Nausea, vomiting and/or constipation. Sleepiness, dizziness, dry mouth, confusion, depression or itching. Physical dependence, meaning you have withdrawal symptoms when a medication is stopped, can develop within a few days. KNOW YOUR RESPONSIBILITIES It is important to know exactly how much and how often to take the opioid pain medications you are prescribed. Never take opioids in higher amounts or more often than prescribed. Do not combine opioids with alcohol or other drugs that cause drowsiness, such as benzodiazepines, also known as benzos, including diazepam and alprazolam, muscle relaxants or sleep aids. Never sell or share prescription opioids. This is illegal. Store opioids in a secure place and out of reach of others (including children, family, friends and visitors). The last page of this document has been signed and retained as a CHART COPY. Signatures Patient Education Materials Moderate Conscious Sedation, Adult, Care After Colonoscopy, Adult, Care After, Hkfd-kr-[id number] Medication Leaflets My discharge plan and instructions have been reviewed and explained to me and IBRAIN KIMBERLY E understand my current condition and have read and understand these discharge instructions. I have received a written copy of the plan/instructions. If I have questions, I am aware that I should contactmy doctor. Patient/Electrolysis Investigator Signature: Date/Time: Relationship to Patient: Witness Name/Signature: Date/Time: [facility]08-21-2023 Anesthesiology Consult note Patient: CARLOS DE LA PAZ Age: 62 years Sex: Female : 1960 Associated Diagnoses: None Author: CAROLYN RUIZ Assessment Postanesthesia assessment Vitals: Reviewed Results: Vital signs from flowsheet : Vital Signs(Date Range: 01/18/2023 0:00 EDT -01/19/2023 10:30 EDT) . Mental status: at preoperative baseline, alert & oriented x 4. Respiratory function: lungs are clear to auscultation. Respiratory support: none. CV function: Normal rate. Cardiovascular support: none. Pain. Nausea status: denies nausea. Postoperative hydration status: within normal limits. Digitally Signed by CAROLYN RUIZ on 01/19/2023 10:30 AM [facility]08-21-2023 Note Date of Service 01/19/2023 Chief Complaint Screening colonoscopy History of Present Illness This is a preprocedural/presurgical H&P. The patient was originally evaluated by Evelyn Castellanos APRN. Please refer to her note also. I independently and personally performed a history and physicalexamination with this patient and repeated the pham components of the exam/history. I have reviewed her note. The patient was scheduled for endoscopy based on that visit and was evaluated by me prior to it. Voice recognition software was utilized for this document and may contain recognition errors inherent in that process. This is a 62-year-old who was referred for colon cancer screening. She is not having abdominal symptoms at this time. She has had a history of prior gastric bypass and an anal fissure. She is immunosuppressed. Physical Exam Vitals and Measurements HR: 85(Apical) RR: 19 BP: 128/88 SpO2: 95% HT: 170 cm WT: 126 kg BMI: 43.6 Weight Dosing Weight: 126 kg (01/19/23) General appearance: The patient is alert and oriented and in no apparent distress. Moderately obesevital signs were reviewed. HEENT: Hearing is appropriate. Sclera are clear and nonicteric. Nares normal. Oral mucosa is normal. Neck is free of lymphadenopathy. The trachea is midline. Chest: No supraclavicular lymphadenopathy. Lungs: Lungs are clear bilaterally. No rales or wheezing. Cardiac: Regular rhythm Abdomen: Bowel sounds are present. The abdomen is soft, nontender. No palpable masses. No organomegaly. No inguinal lymphadenopathy. Rectal examination is deferred. Extremities: No cyanosis or clubbing. Neurology: No gross focal neurologic deficits. Integument: No telangiectasias or petechiae are seen. Lymphatic: No supraclavicular cervical inguinal adenopathy found Psychiatric examination: The patient is alert and oriented. Cognition seems appropriate. Recent andremote memory intact. Affect is appropriate. Lab Results No 36 Hour Lab Data Assessment/Plan Orders: Lactated Ringers Infusion 1,000 mL, Start: 01/19/23 9:20:00 EDT, Rate: 20 mL/hr, 01/19/23 9:20:00 EDT Communication Order (scheduled) Communication Order (scheduled) Communication Order (scheduled) Consult to Anesthesia Sign Consent She is here for screening colonoscopy. Consent conference held. Problem List/Past Medical History Ongoing Abnormal x-ray of thoracic spine Atrophy of pancreas Bilateral cataracts Compression fracture of T8 vertebra Cough Cryptogenic organizing pneumonia Current chronic use of systemic steroids Diarrhea Brandon Yadav Piccardi Lassueur syndrome High blood pressure Hyperparathyroidism Hypothyroidism Left wrist pain Lumbar pain Muscle strain Osteoporosis Polyarthropathy Screening for breast cancer Screening for colon cancer Screening for diabetes mellitus Shortness of breath Sjogrens syndrome Thoracic spine pain Vitamin D deficiency Historical No qualifying data Procedure/Surgical History Knee replacement: 08/30/12 Gastric bypass: 02/03/05 Brandon Yadav Piccardi Lassueur syndrome Medications Home Medications (15) Active calcitriol 0.25 mcg oral capsule 0.25 mcg = 1 cap(s), Oral, Daily Citracal Petites 200 mg-250 intl units oral tablet 1 tab(s), Oral, qDay Cytomel 5 mcg oral tablet 10 mcg = 2 tab(s), Oral, BID ergocalciferol 50,000 intl units (1.25 mg) oral capsule 50,000 International_Unit = 1 cap(s), Oral,2x/Wk finasteride 5 mg oral tablet 5 mg = 1 tab(s), Oral, qDay flax seed oil 1000 mg oral capsule 1,000 mg = 1 cap(s), Oral, TID hydroxychloroquine 200 mg oral tablet 200 mg = 1 tab(s), Oral, BID Multi-Day Plus Minerals , Oral, qDay mycophenolate mofetil 500 mg oral tablet polyethylene glycol 3350 with electrolytes oral powder for reconstitution See Instructions Reclast 5 mg/100 mL intravenous solution 5 mg, IV Piggyback, qYear Synthroid 150 mcg (0.15 mg) oral tablet 150 mcg = 1 tab(s), Oral, qDay Systane ophthalmic solution 1 drop(s), PRN, Ophthalmic, BID Vitamin B Complex oral capsule 1 cap(s), Oral, Daily Vitamin D2 2000 intl units oral capsule 2,000 International_Unit = 1 cap(s), Oral, qDay Allergies Boniva (Chest pain) Percocet 5/325 (I see spiders) Social History Smoking Status - 07/01/2017 Never smoker Alcohol - Denies Alcohol Use, 07/01/2017 Use: Never., 04/05/2019 Employment/School Status: Retired., 05/27/2021 Home/Environment Domestic Concerns: None. Living situation: Home/Independent., 05/27/2021 Nutrition/Health Caffeine intake amount: One pop daily., 07/13/2019 Substance Abuse - Denies Substance Abuse, 07/01/2017 Use: Never., 07/13/2019 Tobacco Tobacco Use: Never (less than 100 in lifetime)., 04/05/2019 Family History Aortic aneurysm: Father. HTN - Hypertension: Brother. Heart failure: Mother. Immunizations SARS-CoV-2 (COVID-19) mRNA-1273 vaccine: 0 unknown unit (09/07/20) SARS-CoV-2 (COVID-19) mRNA-1273 vaccine: 0 unknown unit (08/10/20) zoster vaccine, inactivated: 0 unknown unit (01/14/23) Code Status No qualifying data available. Digitally Signed by ADAM PANDA MD on 01/19/2023 10:03 AM [facility]08-21-2023 Anesthesiology Consult note Patient: CARLOS DE LA PAZ Age: 62 years Sex: Female : 1960 Associated Diagnoses: None Author: CAROLYN RUIZ Preoperative Information Time of last food or liquid consumption: 01/19/2023 05:30:00 Anesthesia history Patient's history: negative. Family's history: negative. Health Status Allergies: Allergic Reactions (Selected) Severity Not Documented Boniva- Chest pain. Percocet 5/325- I see spiders., Allergies (2) ActiveReaction BonivaChest pain Percocet 5/325I see spiders Current medications: (Selected) Inpatient Medications Ordered Lactated Ringers Infusion 1,000 mL: 20 mL/hr, Intravenous Prescriptions Prescribed Cytomel 5 mcg oral tablet: 10 mcg, 2 tab(s), Oral, BID, 360 tab(s), 3 Refill(s) Reclast 5 mg/100 mL intravenous solution: 5 mg, IV Piggyback, qYear, had completed 08/15/22, 100 mL,0 Refill(s) Synthroid 150 mcg (0.15 mg) oral tablet: 150 mcg, 1 tab(s), Oral, qDay, 0 on thursday, 90 tab(s), 3Refill(s) calcitriol 0.25 mcg oral capsule: 0.25 mcg, 1 cap(s), Oral, Daily, 90 cap(s), 3 Refill(s) ergocalciferol 50,000 intl units (1.25 mg) oral capsule: 50,000 International_Unit, 1 cap(s), Oral,2x/Wk, do not fill till pt calls for it, 12 cap(s), 3 Refill(s) polyethylene glycol 3350 with electrolytes oral powder for reconstitution: See Instructions, As directed by provider at [facility]., 1 EA, 0 Refill(s) Documented Medications Documented Citracal Petites 200 mg-250 intl units oral tablet: 1 tab(s), Oral, qDay, 0 Refill(s) Multi-Day Plus Minerals: Oral, qDay, 0 Refill(s) Systane ophthalmic solution: 1 drop(s), Ophthalmic, BID, PRN: for dry eyes, 30 mL, 0 Refill(s) Vitamin B Complex oral capsule: 1 cap(s), Oral, Daily, 0 Refill(s) Vitamin D2 2000 intl units oral capsule: 2,000 International_Unit, 1 cap(s), Oral, qDay, with food,60 cap(s), 0 Refill(s) finasteride 5 mg oral tablet: 5 mg, 1 tab(s), Oral, qDay, 30 tab(s), 0 Refill(s) flax seed oil 1000 mg oral capsule: 1,000 mg, 1 cap(s), Oral, TID, 0 Refill(s) hydroxychloroquine 200 mg oral tablet: 200 mg, 1 tab(s), Oral, BID, 0 Refill(s) mycophenolate mofetil 500 mg oral tablet: take 2 tablets by mouth twice a day, Medications (1) Active Scheduled: (0) Continuous: (1) Lactated Ringers Infusion 1,000 mL 1,000 mL, Intravenous, 20 mL/hr PRN: (0) Problem list: Medical Atrophy of pancreas / SNOMED CT 437256850 / Confirmed Bilateral cataracts / SNOMED CT 593972109 / Confirmed Compression fracture of T8 vertebra / SNOMED CT 0031421758 / Confirmed Cough / SNOMED CT 77306163 / Confirmed Cryptogenic organizing pneumonia / SNOMED CT 8494071336 / Confirmed Diarrhea / SNOMED CT 025738372 / Confirmed Shortness of breath / SNOMED CT 393824632 / Confirmed Brandon Little Piccardi Lassueur syndrome / SNOMED CT 5760906387 / Confirmed Hyperparathyroidism / SNOMED CT 175049949 / Confirmed High blood pressure / SNOMED CT 5275596338 / Confirmed Hypothyroidism / SNOMED CT 09169178 / Confirmed Current chronic use of systemic steroids / SNOMED CT 9161733342 / Confirmed Lumbar pain / SNOMED CT 827894018 / Confirmed Muscle strain / SNOMED CT 78865059 / Confirmed Osteoporosis / SNOMED CT 053277454 / Confirmed Thoracic spine pain / SNOMED CT 954020127 / Confirmed Left wrist pain / SNOMED CT 64132176 / Confirmed Screening for breast cancer / SNOMED CT 843825537 / Confirmed Screening for diabetes mellitus / SNOMED CT 670544440 / Confirmed Screening for colon cancer / SNOMED CT 388590595 / Confirmed Abnormal x-ray of thoracic spine / SNOMED CT 495594924 / Confirmed Polyarthropathy / SNOMED CT 16260318 / Confirmed Sjogrens syndrome / SNOMED CT 4199465737 / Confirmed Vitamin D deficiency / SNOMED CT 08930865 / Confirmed, Active Problems (24) Abnormal x-ray of thoracic spine Atrophy of pancreas Bilateral cataracts Compression fracture of T8 vertebra Cough Cryptogenic organizing pneumonia Current chronic use of systemic steroids Diarrhea Brandon Chapman Lassueur syndrome High blood pressure Hyperparathyroidism Hypothyroidism Left wrist pain Lumbar pain Muscle strain Osteoporosis Polyarthropathy Screening for breast cancer Screening for colon cancer Screening for diabetes mellitus Shortness of breath Sjogrens syndrome Thoracic spine pain Vitamin D deficiency Histories Past Medical History: Active Hypothyroidism ([id number]), multiple autoimmune disorders, cryptogenic organizing pneumonia, elevated BMI, hypothyroid, hyperparathyroidism Family History: Aortic aneurysm Father Heart failure Mother HTN - Hypertension Brother Procedure history: Knee replacement ([id number]) on 08/30/2012 at 52 Years. Comments: 02/27/2015 14:38 CIARAT - GERMAIN HELMS RIGHT KNEE Gastric bypass ([id number]) on 02/03/2005 at 44 Years. Primary mesh repair of incisional hernia ([id number]). Brandon Yadav Piccardi Lassueur syndrome ([id number]). Social History Social & Psychosocial Habits Alcohol 01/19/2023Risk Assessment: Denies Alcohol Use 01/19/2023 Use: Never Employment/School 01/14/2023 Status: Retired Substance Abuse 01/19/2023Risk Assessment: Denies Substance Abuse 01/19/2023 Use: Never Tobacco 01/19/2023 Tobacco Use: Never (less than 100 in l Home/Environment 01/19/2023 Domestic Concerns None Living situation: Home/Independent Nutrition/Health 01/19/2023 Caffeine intake amount: One pop daily . Physical Examination Vital Signs 01/19/2023 9:28 EDT Apical Heart Rate 85 bpm Respiratory Rate 19 br/min Systolic Blood Pressure Non-Invasive 128 mmHg Diastolic Blood Pressure Non-Invasive 88 mmHg Vital Signs(last 24 hrs) Last Charted Resp Rate 19 br/min (JAN 19 09:28) ICN957 mmHg (JAN 19 09:28) DBP88 mmHg (AUG 21 09:28) BMI43.6 (JAN 19:) Measurements from flowsheet : Measurements 01/19/2023 9:28 EDT Height 170 cm Admission Weight 126 kg Weight Method Stated [place] Body Weight 61.44 kg BSA Admission 2.32 Body Mass Index 43.6 kg/m2 General: Alert and oriented. Airway: Normal temporomandibular joint mobility. Mallampati classification: II (soft palate, fauces, uvula visible). Head: Normocephalic. Dentition Evaluation: Intact. Neck: Supple. Respiratory: Lungs are clear to auscultation. Cardiovascular: Normal rate. Heart Sounds: Normal. Gastrointestinal: Soft. Musculoskeletal Normal range of motion. Integumentary: Intact. Neurologic: Alert. Review / Management Results review: No qualifying data available , Lab results 01/19/2023 9:45 EDT Lactated Ringers Injection Begin Bag 1,000 mL mL 01/19/2023 9:44 EDT 22 gauge Peripheral IV Activity: Insert new site Peripheral IV Dressing Condition: Clean, Dry, Intact Peripheral IV Dressing Activity: Applied, Transparent dressing Peripheral IV Line Status/Patency: Flushes easily Peripheral IV Line Care: Secured with tape Peripheral IV Site Condition: No complications Peripheral IV Equipment: Extension set Peripheral IV Number of Attempts: 1 01/19/2023 9:34 EDT Urinary Elimination Voiding, no difficulties IV Present Present Allergies Yes Anesthesia Extension Set Applied Yes Colon Prep Results Excellent Consent Form Signed Yes Patient Dressed In Hospital gown Pre-op Preparation Glasses removed History & Physical Update On Chart Yes History & Physical On Chart Yes Bowel Prep Completed Yes NPO Status Maintained Allergy Band on and Verified Yes Patient ID Band on and Verified Yes Implants Verified Yes Site Verified by Patient/Family Yes Anesthesia Consent Signed Yes Last Fluid Intake 01/19/2023 5:45 Last Food Intake 01/17/2023 22:00 Last Void 01/19/2023 9:00 01/19/2023 9:28 EDT Designated Person #1 We May Share PHI Meghann Designated Person #1 Relationship Spouse Height 170 cm Admission Weight 126 kg Weight Method Stated [place] Body Weight 61.44 kg BSA Admission 2.32 Body Mass Index 43.6 kg/m2 Apical Heart Rate 85 bpm Respiratory Rate 19 br/min Systolic Blood Pressure Non-Invasive 128 mmHg Diastolic Blood Pressure Non-Invasive 88 mmHg Oxygen Saturation 95 % Status No, per patient Sensory Deficits None Infectious Disease Symptoms Patient states no symptoms Infectious Disease Recent Exposure No Alcohol and Drug Use No Employee of Institutional Living No Health Care Employee No History of Exposure to TB No History of Positive Chest X-Ray for TB No History of Positive TB Skin Test No Homeless No Known Immunosuppression No Recent Immigrant No Resident of Institutional Living No Bloody Sputum No Fatigue No Fever No Loss of Appetite No Night Sweats No Persistent Cough > 3 Weeks No Weight Loss No Barriers to Learning None evident Teaching Method Explanation Preferred Spoken Language Azeri Preferred Written Language Azeri Information Given by Patient Patient's Current Physicians DR Gary MEJIA Discharge To, Anticipated Home with family care Prev Test Positive/Diagnosis w/COVID-19 No Current Quarantine/Isolated any Illness No Any Contact with Sick Animals/Birds No Traveled Anywhere in Last 30 Days No No Personal Devices, Patient Valuables Glasses Admission Note-Nursing Procedure/Therapy Intake . Assessment and Plan [place] [employer] Anesthesiologists (ASA) physical status classification: Class III. Anesthetic Preoperative Plan Premedication: None. Anesthetic technique: MAC. Postoperative pain management: Per surgeon. Risks discussed: nausea, vomiting, headache, sore throat, dental injury, hypotension, allergic reaction, serious complications. Informed consent: signed by patient. Digitally Signed by CAROLYN RUIZ on 01/19/2023 09:59 AM [facility]03-17-2023 Nurse Progress note patient tolerated infusion of IV reclast without signs or symptoms of a reaction Digitally Signed by Xi Goode RN on 08/15/2022 11:04 AM [facility]ments Appointment Date:11/07/2021 09:00:00 AM Scheduled Provider:ANDI MCKINLEY MD Location:[facility] Appointment Type:ENDO OV Future Scheduled Tests Laboratory* Calcium Level Ionized 05/23/21 * Thyroid Stimulating Hormone 11/06/21 * Free T4 11/06/21 * Free T3 11/06/21 * Lipid Profile 11/06/21 * PTH, Intact 05/23/21 * Vitamin D Level 11/06/21 * Vitamin D Level 05/23/21 * Complete Metabolic Panel 11/06/21 [facility] Evaluation + Plan note Future Appointments Appointment Date:06/11/2021 04:00:00 PM Scheduled Provider:MARY SALINAS DO Location:[facility] Appointment Type:PC OV Appointment Date:11/07/2021 09:00:00 AM Scheduled Provider:ANDI MCKINLEY MD Location:[facility] Appointment Type:ENDO OV Future Scheduled Tests Laboratory* Calcium Level Ionized 05/23/21 * Thyroid Stimulating Hormone 11/06/21 * Free T4 11/06/21 * Free T3 11/06/21 * Lipid Profile 11/06/21 * PTH, Intact 05/23/21 * Vitamin D Level 11/06/21 * Vitamin D Level 05/23/21 * Complete Metabolic Panel 11/06/21 Radiology* XR Spine Thoracic 2 Views 05/27/21 * XR Spine Lumbar W/Obliques 4 Views 05/27/21 [facility] Evaluation + Plan note Future Appointments Appointment Date:05/08/2022 10:15:00 AM Scheduled Provider:ANDI MCKINLEY MD Location:[facility] Appointment Type:ENDO OV Future Scheduled Tests Laboratory* Basic Metabolic Panel 11/30/21 * Calcium Level Ionized 11/30/21 * Calcium Level Ionized 05/02/22 * Calcium Level Ionized 05/23/21 * Magnesium Level 11/30/21 * Magnesium Level 05/02/22 * Phosphorus Level 11/30/21 * Thyroid Stimulating Hormone 11/30/21 * Thyroid Stimulating Hormone 05/02/22 * Free T4 05/02/22 * Complete Blood Count 05/02/22 * Free T3 05/02/22 * PTH, Intact 11/30/21 * PTH, Intact 05/02/22 * PTH, Intact 05/23/21 * Vitamin D Level 05/02/22 * Vitamin D Level 05/23/21 * Complete Metabolic Panel 05/02/22 Radiology* XR Spine Thoracic 2 Views 05/27/21 * XR Wrist Minimum 3 Views Left 11/14/21 * XR Spine Lumbar W/Obliques 4 Views 05/27/21 [facility] Evaluation + Plan note Future Appointments Appointment Date:05/08/2022 10:15:00 AM Scheduled Provider:ANDI MCKINLEY MD Location:[facility] Appointment Type:ENDO OV Diagnostic Tests Pending * Vitamin D, 1,25-Dihydroxy 12/30/21 * PTH, Intact 12/30/21 Future Scheduled Tests Laboratory* Calcium Level Ionized 11/30/21 * Calcium Level Ionized 05/02/22 * Calcium Level Ionized 05/23/21 * Magnesium Level 05/02/22 * Thyroid Stimulating Hormone 05/02/22 * Free T4 05/02/22 * Calcium Random Urine 12/03/21 * Complete Blood Count 05/02/22 * Creatinine Random Urine 12/03/21 * Free T3 05/02/22 * PTH, Intact 05/02/22 * PTH, Intact 05/23/21 * Vitamin D Level 05/02/22 * Vitamin D Level 05/23/21 * Complete Metabolic Panel 05/02/22 Radiology* XR Spine Thoracic 2 Views 05/27/21 * XR Wrist Minimum 3 Views Left 11/14/21 * XR Spine Lumbar W/Obliques 4 Views 05/27/21 [facility] Evaluation + Plan note Future Appointments Appointment Date:05/08/2022 10:15:00 AM Scheduled Provider:ANDI MCKINLEY MD Location:[facility] Appointment Type:ENDO OV Future Scheduled Tests Laboratory* Calcium Level Ionized 11/30/21 * Calcium Level Ionized 05/02/22 * Calcium Level Ionized 01/02/22 * Calcium Level Ionized 05/23/21 * Magnesium Level 05/02/22 * Thyroid Stimulating Hormone 05/02/22 * Free T4 05/02/22 * Complete Blood Count 05/02/22 * Free T3 05/02/22 * PTH, Intact 05/02/22 * PTH, Intact 05/23/21 * Vitamin D Level 05/02/22 * Vitamin D Level 05/23/21 * Complete Metabolic Panel 05/02/22 Radiology* XR Spine Thoracic 2 Views 05/27/21 * XR Wrist Minimum 3 Views Left 11/14/21 * XR Spine Lumbar W/Obliques 4 Views 05/27/21 [facility] Evaluation + Plan note Future Appointments Appointment Date:05/08/2022 10:15:00 AM Scheduled Provider:ANDI MCKINLEY MD Location:[facility] Appointment Type:ENDO OV Future Scheduled Tests Laboratory* Calcium Level Ionized 11/30/21 * Calcium Level Ionized 05/02/22 * Calcium Level Ionized 05/23/21 * Magnesium Level 05/02/22 * Thyroid Stimulating Hormone 05/02/22 * Free T4 05/02/22 * Complete Blood Count 05/02/22 * Free T3 05/02/22 * PTH, Intact 05/02/22 * PTH, Intact 05/23/21 * Vitamin D Level 05/02/22 * Vitamin D Level 05/23/21 * Complete Metabolic Panel 05/02/22 Radiology* XR Spine Thoracic 2 Views 05/27/21 * XR Wrist Minimum 3 Views Left 11/14/21 * XR Spine Lumbar W/Obliques 4 Views 05/27/21 [facility] Evaluation + Plan note Future Appointments Appointment Date:05/08/2022 10:15:00 AM Scheduled Provider:ANDI MCKINLEY MD Location:[facility] Appointment Type:ENDO OV Future Scheduled Tests Laboratory* Calcium Level Ionized 11/30/21 * Calcium Level Ionized 05/23/21 * PTH, Intact 05/23/21 * Vitamin D Level 05/23/21 Radiology* XR Spine Thoracic 2 Views 05/27/21 * XR Wrist Minimum 3 Views Left 11/14/21 * XR Spine Lumbar W/Obliques 4 Views 05/27/21 [facility] Evaluation + Plan note Future Appointments Appointment Date:07/31/2022 10:15:00 AM Scheduled Provider:ANDI MCKINLEY MD Location:[facility] Appointment Type:ENDO OV Diagnostic Tests Pending * Cross-Linked N-Telopeptide Urine 07/18/22 * Vitamin D, 1,25-Dihydroxy 07/18/22 Future Scheduled Tests Laboratory* Calcium Level Ionized 11/30/21 Radiology* XR Wrist Minimum 3 Views Left 11/14/21 [facility] Evaluation + Plan note Future Appointments Appointment Date:12/11/2022 10:30:00 AM Scheduled Provider:ANDI MCKINLEY MD Location:[facility] Appointment Type:ENDO OV Future Scheduled Tests Laboratory* Calcium Level Ionized 11/30/21 * Calcium Level Ionized 11/30/22 * Thyroid Stimulating Hormone 11/30/22 * Free T4 11/30/22 * A1C Hemoglobin 11/30/22 * Free T3 11/30/22 * Lipid Profile 11/30/22 * PTH, Intact 11/30/22 * Vitamin D Level 11/30/22 * Complete Metabolic Panel 11/30/22 Radiology* XR Wrist Minimum 3 Views Left 11/14/21 [facility] Evaluation + Plan note Future Appointments Appointment Date:12/09/2022 11:00:00 AM Scheduled Provider:SABI NAIK Location:[facility] Appointment Type:PC OV Appointment Date:12/11/2022 10:30:00 AM Scheduled Provider:ANDI MCKINLEY MD Location:[facility] Appointment Type:ENDO OV Future Scheduled Tests Laboratory* Calcium Level Ionized 11/30/21 [facility] Evaluation + Plan note Future Appointments Appointment Date:04/16/2023 10:15:00 AM Scheduled Provider:ANDI MCKINLEY MD Location:[facility] Appointment Type:ENDO OV Future Scheduled Tests Laboratory* Cross-Linked N-Telopeptide Urine 04/13/23 * Calcium Level Ionized 04/13/23 * Thyroid Stimulating Hormone 04/13/23 * Free T4 04/13/23 * Creatinine Random Urine 04/13/23 * Free T3 04/13/23 * PTH, Intact 04/13/23 * Vitamin D Level 04/13/23 * Complete Metabolic Panel 04/13/23 [facility] Evaluation + Plan note Future Appointments Appointment Date:10/29/2023 11:00:00 AM Scheduled Provider:ANDI MCKINLEY MD Location:[facility] Appointment Type:ENDO OV Future Scheduled Tests Laboratory* Calcium Level Ionized 10/28/23 * Thyroid Stimulating Hormone 07/30/23 * Thyroid Stimulating Hormone 10/28/23 * Free T4 10/28/23 * Free T4 07/30/23 * Free T3 10/28/23 * Free T3 07/30/23 * Lipid Profile 10/28/23 * PTH, Intact 10/28/23 * Vitamin D Level 10/28/23 * Complete Metabolic Panel 10/28/23 [facility] Hospital course Narrative No data available for this section [facility] Hospital Discharge instructions No data available for this section [facility] Progress note No data available for this section [facility] Summary Purpose Family History No Family History Records Found Advance Directives No Advanced Directives Records Found Additional Source Comments Care Team (unrecognized sect ion and content) Personnel Name: SABI NAIK Address: [address] [place] [address]- [place] Care Team Personnel Name: SABI NAIK APRN-SATELLITE COMMUNICATIONS OPERATOR Position: P4 Advanced Garnishment Specialist Member Role: Primary Care Physician Address: Address: [address] [place] [address]- [place] Care Team Related Persons Name: MEGHANN DE LA PAZ Address: [address] [place], [place] [phone] [place] Care Team Personnel Name: SABI NAIK APRN-SATELLITE COMMUNICATIONS OPERATOR Position: P4 Advanced Garnishment Specialist Member Role: Primary Care Physician Address: Address: [address] [place] [address]- [place] Care Team Related Persons Name: MEGHANN DE LA PAZ Address: Home [address] [place], [place] [phone] [place] Care Team Personnel Name: SABI NAIK APRN-SATELLITE COMMUNICATIONS OPERATOR Position: P4 Advanced Garnishment Specialist Member Role: Primary Care Physician Address: Address: [address] [place] [address]- [place] Care Team Related Persons Name: MEGHANN DE LA PAZ Address: Home [address], [place] [phone] [place] Care Team Personnel Name: SABI NAIK DENTAL TECHNICIAN INSTRUCTOR-SATELLITE COMMUNICATIONS OPERATOR Position: P4 Advanced Garnishment Specialist Member Role: Primary Care Physician Address: Address: [address] [place] [address]- [place] Care Team Related Persons Name: MEGHANN DE LA PAZ Address: Home [address] [place], [place] [phone] [place] Care Team Personnel Name: SABI NAIK APRN-SATELLITE COMMUNICATIONS OPERATOR Position: P4 Advanced Garnishment Specialist Member Role: Primary Care Physician Address: Address: [address] [place] [address]- [place] Care Team Related Persons Name: MEGHANN DE LA PAZ Address: Home [address] [place], [place] [phone] [place] Care Team (unrecognized sect ion and content) Care Team Personnel Name: SABI NAIK DENTAL TECHNICIAN INSTRUCTOR-SATELLITE COMMUNICATIONS OPERATOR Position: P4 Advanced Practice Nurse Med Service: Employed Provider Member Role: Primary Care Physician Address: Address: [address] [place] [address]- Care Team Related Persons Name: MEGHANN DE LA PAZ Address: Home [address] [facility], [place] [phone] [place] Care Team Personnel Name: SABI NAIK DENTAL TECHNICIAN INSTRUCTOR-SATELLITE COMMUNICATIONS OPERATOR Position: P4 Advanced Practice Nurse Med Service: Employed Provider Member Role: Primary Care Physician Address: Address: [address] [place] [address]- [place] Care Team Related Persons Name: MEGHANN DE LA PAZ Address: Home [address], [place] [phone] [place] Care Team Personnel Name: SABI NAIK DENTAL TECHNICIAN INSTRUCTOR-SATELLITE COMMUNICATIONS OPERATOR Position: P4 Advanced Practice Nurse Med Service: Employed Provider Member Role: Primary Care Physician Address: Address: [address] [place] [address]- [place] Care Team Related Persons Name: MEGHANN DE LA PAZ Address: Home [address], [place] [phone] [place] Care Team Personnel Name: SABI NAIK DENTAL TECHNICIAN INSTRUCTOR-SATELLITE COMMUNICATIONS OPERATOR Position: P4 Advanced Practice Nurse Member Role: Primary Care Physician Address: Address: [address] [place] [address]- [place] Care Team Related Persons Name: MEGHANN DE LA PAZ Address: Home [address] [facility], [place] [phone] [place] Care Team Personnel Name: SABI NAIK DENTAL TECHNICIAN INSTRUCTOR-SATELLITE COMMUNICATIONS OPERATOR Position: P4 Advanced Practice Nurse Member Role: Primary Care Physician Address: Address: [address] [facility] [place] [address]- Care Team Related Persons Name: MEGHANN DE L APAZ Address: Home [address], [place] [phone] [place] INFORMATION SOURCE (unrecogn ized section and content) FOR RECORDS PERTAINING TO PATIENTS WHO ARE OR HAVE BEEN ENROLLED IN A CHEMICAL DEPENDENCY/SUBSTANCEABUSE PROGRAM, SOME INFORMATION MAY BE OMITTED. This clinical summary was aggregated from multiple sources. Caution should be exercised in using it in the provision of clinical care. This summary normalizes information from multiple sources, and as a consequence, information in this document may materially change the coding, format and clinical context of patient data. In addition, data may be omitted in some cases. CLINICAL DECISIONS SHOULD BE BASED ON THE PRIMARY CLINICAL RECORDS. [facility] [facility]. provides no warranty or guarantee of the accuracy or completeness of information in this document.
[2023-06-11 13:46] LABS: ALB/GLOB Ratio 0.9 RATIO (0.9-2.4); AST(SGOT) 20 U/L (15-37); Alanine Aminotransfer ALT/SGPT 20 U/L (13-56); Albumin, Serum 3.3 g/dL (3.2-5.0); Alkaline Phosphatase 85 U/L (45-117); Anion Gap 5 (5-15); BUN 13 mg/dL (7-18); BUN/Creat Ratio 15.5 RATIO (10-20); Calcium,Total 8.6 mg/dL (8.5-10.1); Chloride 108 mmol/L (98-107); Creatinine, Serum 0.84 mg/dL (0.55-1.02); EST Glomerular Filtration Rate 73 mL/min (>60); Est Glom Filt Rate - Afr Amer 89 mL/min (>60); Globulin 3.6 g/dL (2.2-4.2); Glucose 90 mg/dL (74-106); Potassium 3.9 mmol/L (3.5-5.1); Protein, Total 6.9 g/dL (6.4-8.2); Sodium Level 141 mmol/L (136-145)
[2023-06-11 14:06] LABS: Vitamin B12 210 pg/mL (211-911)
== END | disposition home or self-care (01) ==
LOC: MTLAB 11:21
PROVIDERS: PCP Nurse Practitioner Primary Care; Referring Provider Internal Medicine Rheumatology; Visit Provider Internal Medicine Rheumatology
DX: M06.4 Inflammatory polyarthropathy (principal); M35.00 Sjogren syndrome, unspecified; Z79.899 Other long term (current) drug therapy; M79.7 Fibromyalgia
CPT/HCPCS: 36415; 80053; 82607; 82746; 85025

== ENCOUNTER 2023-07-02 11:23 | Outpatient (RCR) | payer OTHER, SELFPAY ==
[2023-07-02 16:25] LABS: Mean Corp Hgb Conc 29.3 g/dL (32-36); Mean Corpuscular Volume 85.4 fL (81-99); Mean Platelet Vol. 10.3 fl (6.2-12.0); Platelet Count 292 K/mm3 (150-450); RBC Distribution Width CV 14.1 % (11.6-14.6); RBC Distribution Width SD 43.8 fl (35.1-43.9); White Blood Count 7.5 K/mm3 (4.4-11.0)
[2023-07-02 16:30] LABS: AST(SGOT) 19 U/L (15-37); Alanine Aminotransfer ALT/SGPT 22 U/L (13-56); Albumin, Serum 3.5 g/dL (3.2-5.0); Alkaline Phosphatase 85 U/L (45-117); Bilirubin, Direct 0.18 mg/dL (0.00-0.30); Globulin 3.8 g/dL (2.2-4.2); Protein, Total 7.3 g/dL (6.4-8.2)
== END 2023-07-30 18:00 | disposition home or self-care (01) ==
LOC: MTLAB 11:23
PROVIDERS: PCP Nurse Practitioner Primary Care; Referring Provider Internal Medicine Pulmonary Disease; Visit Provider Internal Medicine Pulmonary Disease
DX: J84.116 Cryptogenic organizing pneumonia; Z79.899 Other long term (current) drug therapy
CPT/HCPCS: 36415; 80076; 85027

== ENCOUNTER 2023-10-01 11:23 | Outpatient (RCR) | payer OTHER, SELFPAY ==
[2023-10-01 15:06] LABS: Absolute Lymphocyte Count 1.05 X10^3/uL (0.83-4.51); Absolute Neutrophil Count 5.1 X10^3/uL (2.0-7.7); Basophil# 0.04 X10^3/uL; Basophil% 0.6 % (0-1); Eosinophil# 0.19 X10^3/uL; Eosinophils% 2.8 % (0-5); Hematocrit 38.8 % (37-47); Hemoglobin 11.4 g/dL (12.0-15.0); Lymphocyte # 1.05 X10^3/ul (0.83-4.51); Lymphocyte % 15.3 % (19-41); Mean Corp Hgb Conc 29.4 g/dL (32-36); Mean Corpuscular Hgb 25.1 pg (27.0-32.0); Mean Corpuscular Volume 85.3 fL (81-99); Mean Platelet Vol. 9.8 fl (6.2-12.0); Monocyte% 7.3 % (0-10); NRBC Flagged by Analyzer 0 % (0-5); Neutrophil # 5.06 X10^3/uL (2.7-7.7); Neutrophil % 73.7 % (47-70); Platelet Count 246 K/mm3 (150-450); RBC Distribution Width CV 13.9 % (11.6-14.6); RBC Distribution Width SD 43.3 fl (35.1-43.9); Red Blood Count 4.55 M/mm3 (4.2-5.4); White Blood Count 6.9 K/mm3 (4.4-11.0)
[2023-10-01 16:41] LABS: AST(SGOT) 18 U/L (15-37); Alanine Aminotransfer ALT/SGPT 19 U/L (13-56); Albumin, Serum 3.6 g/dL (3.2-5.0); Alkaline Phosphatase 80 U/L (45-117); Bilirubin, Direct 0.16 mg/dL (0.00-0.30); Globulin 3.3 g/dL (2.2-4.2); Protein, Total 6.9 g/dL (6.4-8.2)
== END 2023-10-30 18:00 | disposition home or self-care (01) ==
LOC: MTLAB 11:23
PROVIDERS: PCP Nurse Practitioner Primary Care; Referring Provider Internal Medicine Pulmonary Disease; Visit Provider Internal Medicine Pulmonary Disease
DX: J84.116 Cryptogenic organizing pneumonia (principal); Z79.899 Other long term (current) drug therapy
CPT/HCPCS: 36415; 80076; 85025

== ENCOUNTER → 2023-11-26 | Outpatient (CLI) | payer OTHER, SELFPAY ==
[2023-11-26 15:06] LABS: Absolute Lymphocyte Count 1.26 X10^3/uL (0.83-4.51); Absolute Neutrophil Count 5.1 X10^3/uL (2.0-7.7); Basophil# 0.05 X10^3/uL; Basophil% 0.7 % (0-1); Eosinophil# 0.21 X10^3/uL; Eosinophils% 2.9 % (0-5); Hematocrit 39.6 % (37-47); Hemoglobin 11.5 g/dL (12.0-15.0); Lymphocyte # 1.26 X10^3/ul (0.83-4.51); Lymphocyte % 17.5 % (19-41); Mean Corpuscular Hgb 24.6 pg (27.0-32.0); Mean Corpuscular Volume 84.6 fL (81-99); Mean Platelet Vol. 10.3 fl (6.2-12.0); Monocyte# 0.56 X10^3/uL; Monocyte% 7.8 % (0-10); NRBC Flagged by Analyzer 0 % (0-5); Neutrophil # 5.12 X10^3/uL (2.7-7.7); Neutrophil % 70.8 % (47-70); Platelet Count 253 K/mm3 (150-450); RBC Distribution Width CV 14.4 % (11.6-14.6); RBC Distribution Width SD 43.9 fl (35.1-43.9); Red Blood Count 4.68 M/mm3 (4.2-5.4); White Blood Count 7.2 K/mm3 (4.4-11.0)
[2023-11-26 15:24] LABS: ALB/GLOB Ratio 0.9 RATIO (0.9-2.4); AST(SGOT) 19 U/L (15-37); Alanine Aminotransfer ALT/SGPT 18 U/L (13-56); Albumin, Serum 3.4 g/dL (3.2-5.0); Alkaline Phosphatase 80 U/L (45-117); Anion Gap 4 (5-15); BUN 15 mg/dL (7-18); BUN/Creat Ratio 18.3 RATIO (10-20); Calcium,Total 8.7 mg/dL (8.5-10.1); Chloride 108 mmol/L (98-107); Creatinine, Serum 0.82 mg/dL (0.55-1.02); EST Glomerular Filtration Rate 75 mL/min (>60); Est Glom Filt Rate - Afr Amer 91 mL/min (>60); Globulin 3.6 g/dL (2.2-4.2); Glucose 86 mg/dL (74-106); Potassium 4.2 mmol/L (3.5-5.1); Sodium Level 140 mmol/L (136-145)
== END | disposition home or self-care (01) ==
LOC: MTLAB 11:44
PROVIDERS: PCP Nurse Practitioner Primary Care; Referring Provider Internal Medicine Rheumatology; Visit Provider Internal Medicine Rheumatology
DX: M06.4 Inflammatory polyarthropathy (principal); Z79.899 Other long term (current) drug therapy; M79.7 Fibromyalgia
CPT/HCPCS: 36415; 80053; 85025

== ENCOUNTER 2024-01-08 09:44 | Outpatient (RCR) | payer OTHER, SELFPAY ==
[2024-01-08 12:25] LABS: Hematocrit 39.5 % (37-47); Hemoglobin 11.7 g/dL (12.0-15.0); Mean Corp Hgb Conc 29.6 g/dL (32-36); Mean Corpuscular Hgb 25.3 pg (27.0-32.0); Mean Corpuscular Volume 85.3 fL (81-99); Mean Platelet Vol. 9.7 fl (6.2-12.0); Platelet Count 240 K/mm3 (150-450); RBC Distribution Width CV 14.8 % (11.6-14.6); RBC Distribution Width SD 45.6 fl (35.1-43.9); Red Blood Count 4.63 M/mm3 (4.2-5.4); White Blood Count 8.3 K/mm3 (4.4-11.0)
[2024-01-08 13:00] LABS: AST(SGOT) 14 U/L (15-37); Alanine Aminotransfer ALT/SGPT 19 U/L (13-56); Albumin, Serum 3.3 g/dL (3.2-5.0); Alkaline Phosphatase 84 U/L (45-117); Bilirubin, Direct 0.15 mg/dL (0.00-0.30); Globulin 3.8 g/dL (2.2-4.2); Protein, Total 7.1 g/dL (6.4-8.2)
== END 2024-01-08 18:00 | disposition home or self-care (01) ==
LOC: MTLAB 09:44
PROVIDERS: PCP Nurse Practitioner Primary Care; Referring Provider Internal Medicine Pulmonary Disease; Visit Provider Internal Medicine Pulmonary Disease
DX: J84.116 Cryptogenic organizing pneumonia (principal); Z79.899 Other long term (current) drug therapy
CPT/HCPCS: 36415; 80076; 85027

== ENCOUNTER 2024-04-01 11:13 | Outpatient (RCR) | payer OTHER, SELFPAY ==
[2024-04-01 12:24] LABS: Hematocrit 40.3 % (37-47); Hemoglobin 11.9 g/dL (12.0-15.0); Mean Corp Hgb Conc 29.5 g/dL (32-36); Mean Corpuscular Hgb 25.5 pg (27.0-32.0); Mean Corpuscular Volume 86.3 fL (81-99); Mean Platelet Vol. 10.2 fl (6.2-12.0); Platelet Count 255 K/mm3 (150-450); RBC Distribution Width CV 14.1 % (11.6-14.6); RBC Distribution Width SD 44.6 fl (35.1-43.9); Red Blood Count 4.67 M/mm3 (4.2-5.4); White Blood Count 6.5 K/mm3 (4.4-11.0)
[2024-04-01 13:07] LABS: AST(SGOT) 15 U/L (15-37); Alanine Aminotransfer ALT/SGPT 18 U/L (13-56); Albumin, Serum 3.6 g/dL (3.2-5.0); Alkaline Phosphatase 84 U/L (45-117); Bilirubin, Direct 0.12 mg/dL (0.00-0.30); Globulin 3.5 g/dL (2.2-4.2); Protein, Total 7.1 g/dL (6.4-8.2)
== END 2024-04-30 18:00 | disposition home or self-care (01) ==
LOC: MTLAB 11:13
PROVIDERS: PCP Nurse Practitioner Primary Care; Referring Provider Internal Medicine Pulmonary Disease; Visit Provider Internal Medicine Pulmonary Disease
DX: J84.116 Cryptogenic organizing pneumonia (principal); Z79.899 Other long term (current) drug therapy
CPT/HCPCS: 36415; 80076; 85027

== ENCOUNTER → 2024-05-11 | Outpatient (CLI) | payer OTHER, SELFPAY ==
[2024-05-11 12:49] LABS: Absolute Lymphocyte Count 1.14 X10^3/uL (0.83-4.51); Absolute Neutrophil Count 5.4 X10^3/uL (2.0-7.7); Basophil# 0.04 X10^3/uL; Basophil% 0.5 % (0-1); Eosinophil# 0.17 X10^3/uL; Eosinophils% 2.3 % (0-5); Hematocrit 39.6 % (37-47); Hemoglobin 11.6 g/dL (12.0-15.0); Lymphocyte # 1.14 X10^3/ul (0.83-4.51); Lymphocyte % 15.6 % (19-41); Mean Corp Hgb Conc 29.3 g/dL (32-36); Mean Corpuscular Hgb 25.3 pg (27.0-32.0); Mean Corpuscular Volume 86.5 fL (81-99); Mean Platelet Vol. 9.6 fl (6.2-12.0); Monocyte# 0.53 X10^3/uL; Monocyte% 7.3 % (0-10); NRBC Flagged by Analyzer 0 % (0-5); Neutrophil % 73.9 % (47-70); Platelet Count 254 K/mm3 (150-450); RBC Distribution Width CV 14.1 % (11.6-14.6); RBC Distribution Width SD 44.6 fl (35.1-43.9); Red Blood Count 4.58 M/mm3 (4.2-5.4); White Blood Count 7.3 K/mm3 (4.4-11.0)
[2024-05-11 13:12] LABS: AST(SGOT) 15 U/L (15-37); Alanine Aminotransfer ALT/SGPT 21 U/L (13-56); Albumin, Serum 3.6 g/dL (3.2-5.0); Alkaline Phosphatase 83 U/L (45-117); Anion Gap 5 (5-15); BUN 17 mg/dL (7-18); BUN/Creat Ratio 18.9 RATIO (10-20); Calcium,Total 8.9 mg/dL (8.5-10.1); Chloride 109 mmol/L (98-107); EST Glomerular Filtration Rate 67 mL/min (>60); Est Glom Filt Rate - Afr Amer 81 mL/min (>60); Globulin 3.6 g/dL (2.2-4.2); Glucose 90 mg/dL (74-106); Potassium 3.9 mmol/L (3.5-5.1); Protein, Total 7.2 g/dL (6.4-8.2); Sodium Level 141 mmol/L (136-145)
== END | disposition home or self-care (01) ==
LOC: MTLAB 09:07
PROVIDERS: PCP Nurse Practitioner Primary Care; Referring Provider Internal Medicine Rheumatology; Visit Provider Internal Medicine Rheumatology
DX: M06.4 Inflammatory polyarthropathy (principal); Z79.899 Other long term (current) drug therapy; M79.7 Fibromyalgia; M35.00 Sjogren syndrome, unspecified
CPT/HCPCS: 36415; 80053; 85025

== ENCOUNTER 2024-07-05 10:35 | Outpatient (RCR) | payer OTHER, SELFPAY ==
[2024-07-05 12:26] LABS: Absolute Lymphocyte Count 1.27 X10^3/uL (0.83-4.51); Absolute Neutrophil Count 5.6 X10^3/uL (2.0-7.7); Basophil# 0.06 X10^3/uL; Basophil% 0.8 % (0-1); Eosinophil# 0.19 X10^3/uL; Eosinophils% 2.5 % (0-5); Hematocrit 39.9 % (37-47); Hemoglobin 11.9 g/dL (12.0-15.0); Lymphocyte # 1.27 X10^3/ul (0.83-4.51); Lymphocyte % 16.6 % (19-41); Mean Corp Hgb Conc 29.8 g/dL (32-36); Mean Corpuscular Hgb 25.6 pg (27.0-32.0); Mean Corpuscular Volume 85.8 fL (81-99); Mean Platelet Vol. 9.9 fl (6.2-12.0); Monocyte# 0.55 X10^3/uL; Monocyte% 7.2 % (0-10); NRBC Flagged by Analyzer 0 % (0-5); Neutrophil # 5.58 X10^3/uL (2.7-7.7); Neutrophil % 72.6 % (47-70); Platelet Count 254 K/mm3 (150-450); RBC Distribution Width CV 14.1 % (11.6-14.6); RBC Distribution Width SD 43.5 fl (35.1-43.9); Red Blood Count 4.65 M/mm3 (4.2-5.4); White Blood Count 7.7 K/mm3 (4.4-11.0)
[2024-07-05 12:47] LABS: AST(SGOT) 16 U/L (15-37); Alanine Aminotransfer ALT/SGPT 21 U/L (13-56); Albumin, Serum 3.4 g/dL (3.2-5.0); Alkaline Phosphatase 81 U/L (45-117); Bilirubin, Direct 0.16 mg/dL (0.00-0.30); Globulin 3.7 g/dL (2.2-4.2); Protein, Total 7.1 g/dL (6.4-8.2)
== END 2024-07-29 18:00 | disposition home or self-care (01) ==
LOC: MTLAB 10:35
PROVIDERS: PCP Nurse Practitioner Primary Care; Referring Provider Internal Medicine Pulmonary Disease; Visit Provider Internal Medicine Pulmonary Disease
DX: J84.116 Cryptogenic organizing pneumonia (principal)
CPT/HCPCS: 36415; 80076; 85025

== ENCOUNTER 2024-10-28 10:56 | Outpatient (RCR) | payer OTHER, SELFPAY ==
[2024-10-28 13:03] LABS: Absolute Lymphocyte Count 1.22 X10^3/uL (0.83-4.51); Absolute Neutrophil Count 4.7 X10^3/uL (2.0-7.7); Basophil# 0.04 X10^3/uL; Basophil% 0.6 % (0-1); Eosinophil# 0.14 X10^3/uL; Eosinophils% 2.1 % (0-5); Hematocrit 37.3 % (37-47); Hemoglobin 11.3 g/dL (12.0-15.0); Lymphocyte # 1.22 X10^3/ul (0.83-4.51); Lymphocyte % 18.3 % (19-41); Mean Corp Hgb Conc 30.3 g/dL (32-36); Mean Corpuscular Volume 85.7 fL (81-99); Mean Platelet Vol. 9.8 fl (6.2-12.0); Monocyte# 0.52 X10^3/uL; Monocyte% 7.8 % (0-10); NRBC Flagged by Analyzer 0 % (0-5); Neutrophil # 4.74 X10^3/uL (2.7-7.7); Neutrophil % 70.9 % (47-70); Platelet Count 239 K/mm3 (150-450); RBC Distribution Width CV 14.4 % (11.6-14.6); Red Blood Count 4.35 M/mm3 (4.2-5.4); White Blood Count 6.7 K/mm3 (4.4-11.0)
[2024-10-28 13:13] LABS: ALB/GLOB Ratio 1.5 RATIO (0.9-2.4); AST(SGOT) 20 U/L (<=31); Alanine Aminotransfer ALT/SGPT 13 U/L (<=34); Albumin, Serum 3.9 g/dL (3.4-4.8); Alkaline Phosphatase 78 U/L (35-104); Anion Gap 9 (5-15); BUN 12 mg/dL (4-19); BUN/Creat Ratio 14.6 RATIO (10-20); Bilirubin, Direct 0.18 mg/dL (0.00-0.30); Calcium,Total 8.4 mg/dL (7.6-11.0); Carbon Dioxide 23.2 mmol/L (21.0-32.0); Chloride 106 mmol/L (98-108); Creatinine, Serum 0.85 mg/dL (0.70-1.20); EST Glomerular Filtration Rate 77 (>60); Globulin 2.6 g/dL (2.2-4.2); Glucose 91 mg/dL (70-99); Potassium 4.2 mmol/L (3.3-5.1); Protein, Total 6.5 g/dL (5.9-8.4); Sodium Level 138 mmol/L (133-145); Total Bilirubin 0.35 mg/dL (0.00-1.30)
== END 2024-10-28 18:00 | disposition home or self-care (01) ==
LOC: MTLAB 10:56
PROVIDERS: PCP Nurse Practitioner Primary Care; Referring Provider Internal Medicine Pulmonary Disease; Visit Provider Internal Medicine Pulmonary Disease
DX: J84.116 Cryptogenic organizing pneumonia (principal); Z79.899 Other long term (current) drug therapy; M06.4 Inflammatory polyarthropathy; M79.7 Fibromyalgia; M35.00 Sjogren syndrome, unspecified
CPT/HCPCS: 36415; 80053; 82248; 85025

== ENCOUNTER 2024-11-30 11:35 | Outpatient (RCR) | payer OTHER, SELFPAY ==
--- NOTE | 2024-11-30 11:50 | RAD_ITS ---
PROCEDURE: CHEST PA AND LATERAL 11/30/2024 REASON FOR EXAM: PNEUMONIA TECHNIQUE: CHEST PA AND LATERAL COMPARISON: Chest x-ray of 07/16/2020 RAD/Chest PA and Lateral IMPRESSION: Moderate chronic appearing wedge compression of a mid thoracic vertebral body, new since the study of 07/16/2020.. [id number] degenerative changes of the mid to lower thoracic spine if pro gressed since 2020. Lungs are somewhat hypoinflated. No acute pneumonic process is clearly identified. No pleural effusion or pneumothorax is seen. The cardiomediastinal silhouette is stable, without evidence of cardiomegaly. Reading Location: [place] [address]
== END 2024-11-30 12:00 | disposition home or self-care (01) ==
LOC: RAD 11:35
PROVIDERS: PCP Nurse Practitioner Primary Care; Referring Provider Internal Medicine Pulmonary Disease; Visit Provider Internal Medicine Pulmonary Disease
DX: J84.116 Cryptogenic organizing pneumonia (principal)
CPT/HCPCS: 71046

== ENCOUNTER 2025-01-23 10:30 | Outpatient (RCR) | payer OTHER, SELFPAY ==
[2025-01-23 12:05] LABS: Hematocrit 38.8 % (37-47); Hemoglobin 11.6 g/dL (12.0-15.0); Immature Granulocytes Count 0.020 X10^3/uL (0.0-0.0); Mean Corp Hgb Conc 29.9 g/dL (32-36); Mean Corpuscular Volume 84.9 fL (81-99); Mean Platelet Vol. 9.9 fl (6.2-12.0); NRBC Flagged by Analyzer 0 % (0-5); Platelet Count 249 K/mm3 (150-450); RBC Distribution Width CV 14.1 % (11.6-14.6); RBC Distribution Width SD 43.6 fl (35.1-43.9); Red Blood Count 4.57 M/mm3 (4.2-5.4); White Blood Count 6.7 K/mm3 (4.4-11.0)
[2025-01-23 12:39] LABS: AST(SGOT) 18 U/L (<=31); Alanine Aminotransfer ALT/SGPT 13 U/L (<=34); Albumin, Serum 4.0 g/dL (3.4-4.8); Alkaline Phosphatase 79 U/L (35-104); Bilirubin, Direct 0.17 mg/dL (0.00-0.30); Globulin 2.9 g/dL (2.2-4.2)
== END 2025-01-23 18:00 | disposition home or self-care (01) ==
LOC: MTLAB 10:30
PROVIDERS: PCP Nurse Practitioner Primary Care; Referring Provider Internal Medicine Pulmonary Disease; Visit Provider Internal Medicine Pulmonary Disease
DX: Z79.899 Other long term (current) drug therapy; M06.4 Inflammatory polyarthropathy; M79.7 Fibromyalgia; M35.00 Sjogren syndrome, unspecified
CPT/HCPCS: 36415; 80076; 85025

== ENCOUNTER → 2025-04-21 | Outpatient (CLI) | payer OTHER, SELFPAY ==
[2025-04-21 12:12] LABS: Hematocrit 39.2 % (37-47); Hemoglobin 11.8 g/dL (12.0-15.0); Mean Corp Hgb Conc 30.1 g/dL (32-36); Mean Corpuscular Volume 85.6 fL (81-99); Mean Platelet Vol. 9.8 fl (6.2-12.0); Platelet Count 258 K/mm3 (150-450); RBC Distribution Width CV 14.0 % (11.6-14.6); RBC Distribution Width SD 43.3 fl (35.1-43.9); Red Blood Count 4.58 M/mm3 (4.2-5.4); White Blood Count 7.0 K/mm3 (4.4-11.0)
[2025-04-21 13:09] LABS: AST(SGOT) 18 U/L (<=31); Alanine Aminotransfer ALT/SGPT 13 U/L (<=34); Albumin, Serum 4.0 g/dL (3.4-4.8); Alkaline Phosphatase 80 U/L (35-104); Bilirubin, Direct 0.18 mg/dL (0.00-0.30); Globulin 2.9 g/dL (2.2-4.2)
== END | disposition home or self-care (01) ==
LOC: MTLAB 11:06
PROVIDERS: PCP Nurse Practitioner Primary Care; Referring Provider Internal Medicine Pulmonary Disease; Visit Provider Internal Medicine Pulmonary Disease
DX: J84.116 Cryptogenic organizing pneumonia (principal)
CPT/HCPCS: 36415; 80076; 85027

== ENCOUNTER → 2025-04-24 | Outpatient (CLI) | payer OTHER, SELFPAY ==
[2025-04-24 12:17] LABS: Hematocrit 38.6 % (37-47); Hemoglobin 11.9 g/dL (12.0-15.0); Immature Granulocytes Count 0.020 X10^3/uL (0.0-0.0); Mean Corp Hgb Conc 30.8 g/dL (32-36); Mean Corpuscular Volume 83.7 fL (81-99); Mean Platelet Vol. 9.7 fl (6.2-12.0); NRBC Flagged by Analyzer 0 % (0-5); Platelet Count 248 K/mm3 (150-450); RBC Distribution Width CV 13.8 % (11.6-14.6); RBC Distribution Width SD 42.3 fl (35.1-43.9); Red Blood Count 4.61 M/mm3 (4.2-5.4); White Blood Count 7.1 K/mm3 (4.4-11.0)
[2025-04-24 12:49] LABS: BUN 14 mg/dL (4-19); Glucose 93 mg/dL (70-99)
[2025-04-24 12:50] LABS: AST(SGOT) 18 U/L (<=31); Alanine Aminotransfer ALT/SGPT 12 U/L (<=34); Albumin, Serum 4.2 g/dL (3.4-4.8); Alkaline Phosphatase 85 U/L (35-104); Anion Gap 12 (5-15); BUN/Creat Ratio 13.6 RATIO (10-20); Calcium,Total 9.6 mg/dL (7.6-11.0); Carbon Dioxide 24.6 mmol/L (21.0-32.0); Chloride 105 mmol/L (98-108); Globulin 2.9 g/dL (2.2-4.2); Potassium 4.4 mmol/L (3.3-5.1)
== END | disposition home or self-care (01) ==
LOC: MTLAB 11:04
PROVIDERS: PCP Nurse Practitioner Primary Care; Referring Provider Internal Medicine Rheumatology; Visit Provider Internal Medicine Rheumatology
DX: M06.4 Inflammatory polyarthropathy (principal); Z79.899 Other long term (current) drug therapy; M79.7 Fibromyalgia; M35.00 Sjogren syndrome, unspecified
CPT/HCPCS: 36415; 80053; 85025